=== PATIENT | male | born 1945 | race Caucasian/White ===

== ENCOUNTER → 2016-08-24 | Outpatient (CLI) | payer MEDICARE ==
[~2016-08-24] MED LIST: AMLO10CA PO; ASPI81TA21 PO; ATEN25TA PO; ATOR1TAB19 PO; COMBAER6 INH; COUM2.5T11 PO; PERC5TAB6 PO; RANI150T PO
--- NOTE | 2016-08-24 14:44 | REP ---
CHEST X-RAY: Two views. HISTORY: COPD. Comparison study December 19, 2015. FINDINGS: There is linear plate-like atelectasis in the right upper lobe on the frontal and lateral radiograph. Interstitial markings are a little prominent as well. Heart is not enlarged. The aorta is calcific and somewhat tortuous. IMPRESSION: Atelectasis and/or infiltrate right upper lobe. Mildly prominent pulmonary interstitial markings. No pleural effusion seen. Normal heart size. Signed by Everardo Acevedo MD 08/24/2016 03:21 P
[2016-08-24 17:40] LABS: ANION GAP 8 MEQ/L (8-16); BLOOD UREA NITROGEN 14 MG/DL (7-18); CALCIUM LEVEL 9.3 MG/DL (8.8-10.2); CARBON DIOXIDE LEVEL 32 MEQ/L (21-32); CHLORIDE LEVEL 99 MEQ/L (98-107); CREATININE FOR GFR 0.78 MG/DL (0.70-1.30); GLOMERULAR FILTRATION RATE > 60.0 (>42); GLUCOSE, FASTING 137 MG/DL (83-110); POTASSIUM SERUM 4.4 MEQ/L (3.5-5.1); SODIUM LEVEL 139 MEQ/L (136-145)
[2016-08-24 17:48] LABS: MEAN CORPUSCULAR HEMOGLOBIN 29.6 pg (27.0-33.0); MEAN CORPUSCULAR HGB CONC 32.6 g/dl (32.0-36.5); MEAN CORPUSCULAR VOLUME 90.8 fl (80.0-96.0); WHITE BLOOD COUNT 9.7 K/mm3 (4.0-10.0)
== END ==
LOC: M WUC 13:43
PROVIDERS: ATTEND Internal Medicine Cardiovascular Disease
DX: R06.00 Dyspnea, unspecified (principal); R05 Cough; J44.9 Chronic obstructive pulmonary disease, unspecified; I70.0 Atherosclerosis of aorta; J98.11 Atelectasis

== ENCOUNTER → 2016-09-07 | Outpatient (CLI) | payer MEDICARE ==
[2016-09-07 17:00] LABS: ANION GAP 9 MEQ/L (8-16); BLOOD UREA NITROGEN 18 MG/DL (7-18); CALCIUM LEVEL 8.9 MG/DL (8.8-10.2); CARBON DIOXIDE LEVEL 32 MEQ/L (21-32); CHLORIDE LEVEL 94 MEQ/L (98-107); CREATININE FOR GFR 0.87 MG/DL (0.70-1.30); GLOMERULAR FILTRATION RATE > 60.0 (>42); GLUCOSE, FASTING 119 MG/DL (83-110); POTASSIUM SERUM 4.4 MEQ/L (3.5-5.1); SODIUM LEVEL 135 MEQ/L (136-145)
[2016-09-07 17:02] LABS: INR 1.25
== END ==
LOC: M WUC 11:46
PROVIDERS: ATTEND Internal Medicine Cardiovascular Disease
DX: Z51.81 Encounter for therapeutic drug level monitoring (principal); Z79.01 Long term (current) use of anticoagulants; I50.9 Heart failure, unspecified; I48.91 Unspecified atrial fibrillation; R06.02 Shortness of breath

== ENCOUNTER → 2016-09-15 | Outpatient (CLI) | payer MEDICARE ==
[2016-09-15 13:48] LABS: INR 1.65
== END ==
LOC: M WUC 11:42
PROVIDERS: ATTEND Internal Medicine Cardiovascular Disease
DX: I50.9 Heart failure, unspecified (principal); R06.02 Shortness of breath

== ENCOUNTER 2016-09-21 21:32 | Inpatient (IN) | payer MEDICARE ==
[~2016-09-21] VITALS: Ht 180.3 cm; Wt 84.4 kg
[2016-09-21] MEDS ORDERED: HYDROmorphone HCL 1 MG/ML SYRINGE (J1170) As Ordered ONE ×2 (23:02→23:37)
[2016-09-21 23:05] LABS: BASO % 0.4 % (0.0-1.0); EOS # 0.2 K/mm3 (0.0-0.50); EOS % 1.4 % (0.0-3.0); LARGE UNSTAINED CELL # 0.2 K/mm3 (0.0-0.4); LARGE UNSTAINED CELL % 1.8 % (0.0-4.0); LYMPH # 1.1 K/mm3 (1.5-4.5); LYMPH % 7.6 % (24.0-44.0); MEAN CORPUSCULAR HEMOGLOBIN 29.5 pg (27.0-33.0); MEAN CORPUSCULAR HGB CONC 33.5 g/dl (32.0-36.5); MEAN CORPUSCULAR VOLUME 88.1 fl (80.0-96.0); MONO % 8.2 % (0.0-5.0); NEUTROPHILS # 9.6 K/mm3 (1.8-7.7); NEUTROPHILS % 80.5 % (36.0-66.0); PLATELET COUNT, AUTOMATED 353 k/mm3 (150-450); RED CELL DISTRIBUTION WIDTH 13.1 % (11.5-14.5); WHITE BLOOD COUNT 11.9 K/mm3 (4.0-10.0)
[2016-09-21 23:11] LABS: INR 1.85
[2016-09-21 23:26] LABS: ALBUMIN 3.2 GM/DL (3.2-5.2); ALBUMIN/GLOBULIN RATIO 0.71 (1.00-1.93); ALKALINE PHOSPHATASE 128 U/L (45-117); ALT/SGPT 23 U/L (12-78); AMYLASE 42 U/L (25-115); ANION GAP 10 MEQ/L (8-16); AST/SGOT 19 U/L (15-37); BILIRUBIN,DIRECT 0.1 MG/DL (0.0-0.2); BILIRUBIN,TOTAL 0.5 MG/DL (0.2-1.0); BLOOD UREA NITROGEN 12 MG/DL (7-18); CALCIUM LEVEL 9.1 MG/DL (8.8-10.2); CARBON DIOXIDE LEVEL 34 MEQ/L (21-32); CHLORIDE LEVEL 89 MEQ/L (98-107); CREATININE FOR GFR 0.67 MG/DL (0.70-1.30); GLOMERULAR FILTRATION RATE > 60.0 (>42); GLUCOSE, FASTING 110 MG/DL (83-110); POTASSIUM SERUM 3.3 MEQ/L (3.5-5.1); SODIUM LEVEL 133 MEQ/L (136-145); TOTAL PROTEIN 7.7 GM/DL (6.4-8.2)
[2016-09-22] VITALS (7 sets, daily range): BP systolic 130–188; BP diastolic 63–98; O2SAT 90–95
[2016-09-22] MEDS ORDERED: POTASSIUM CHLORIDE 10 MEQ SR TABLET As Ordered ONE (00:04)
[2016-09-22] MEDS ORDERED: ISOVUE-370 76% 100ML VIAL (Q9967) As Ordered ONE (00:34)
--- NOTE | 2016-09-22 01:00 | REPUSA ---
CT of the abdomen and pelvis with contrast Clinical statement: Pain. Technique: Multiple axial CT images were obtained from the base of the lungs to the floor of the pelv is utilizing 5 mm axial slices after administration of nonionic intravenous contrast. Coronal and sag ittal reconstructions were also obtained. No comparison is available. Findings: Chest: There is a small right-sided pleural effusion with right lower lobe infiltrate. There is also a small reticulonodular infiltrate lingula of the left lung. Abdomen: The kidneys are normal in size bilaterally. There is no evidence of hydronephrosis or nephro lithiasis. The liver, spleen, pancreas, gallbladder and right adrenal gland are unremarkable. There i s a low attenuation nodule in the left adrenal measuring 2.5 x 1.5 cm. The aorta demonstrates normal caliber and contour. There is no abdominal lymphadenopathy or ascites. Pelvis: The bowel is unremarkable, with no obstructive or inflammatory changes. The appendix is gaston l. The urinary bladder is within normal limits. There is no pelvic lymphadenopathy or ascites. The ot her pelvic structures appear unremarkable. Bones: There are no suspicious osseous abnormalities seen. Severe multilevel degenerative disc diseas e is seen throughout the lower thoracic and lumbar spine, with sclerosis and severe disc osteophyte c omplexes. There is an 8mm retrolisthesis of L3 upon L4. There is a 5 mm retrolisthesis of L4 upon L5. There is a 7 mm anterior spondylolisthesis of L5 upon S1. Moderately severe central canal stenosis i s noted at L3/L4 and L2/L3. Severe bilateral neural foraminal narrowing is noted at these levels as w ell. Impression: 1. No acute findings to explain the patient's pain. 2. No obstructive or inflammatory bowel changes. 3. Severe multilevel degenerative disc disease with disc osteophyte complexes as described. This caus es central canal stenosis at L3/L4 and L2/L3. There is grade 1 spondylolisthesis noted at L3/L4, L4/L 5, and L5/S1. No acute fractures are identified. 4. Benign left adrenal adenoma.
--- NOTE | 2016-09-22 01:30 | REPUSA ---
CT of the chest without contrast Clinical statement: Shortness of breath. Previous right lower lobe consolidation. Technique: Multiple axial CT images were obtained with 5 mm cuts through the chest without administra tion of contrast. Coronal and sagittal reconstructions were also obtained. No comparison is available. Findings: There is extensive adenopathy. A precarinal lymph node measures 2.7 x 2.1 cm. Large amount of right hilar soft tissue is noted, suspected to represent adenopathy. The area measures 6.4 x 3.4 c m. Soft tissue in the subcarinal region measures 6.3 x 4.0 cm. The visualized portions of the thyroid gland is unremarkable. There mild emphysematous changes bilaterally, predominately in the upper lobe s. Bronchiectasis is seen in the right middle lobe. There are several nodules demonstrated in the rig ht middle and right lower lobes, measuring up to 11 mm in diameter. Smaller nodules are seen in the l eft lower lobe measuring up to 6 mm in diameter. There is a small right lower lobe infiltrate and ple ural effusion. There is also a small left lower lobe infiltrate. Limited imaging of the upper abdomen does not demonstrate any acute abnormalities. There are no suspicious osseous lesions. Impression: 1. Right lower lobe infiltrate and small right-sided pleural effusion. Smaller left lower lobe infilt rate also noted. 2. Bilateral upper lobe emphysema. Bronchiectasis in the right middle lobe. 3. Numerous pulmonary nodules within the lungs bilaterally measuring up to 11 mm in diameter. By Flei schner Society protocol recommendations, a follow-up CT in 3, 9, and 24 months is suggested. Dynamic contrast enhanced CT/PET scan or biopsy should also be considered. 4. Extensive mediastinal and right hilar adenopathy. Biopsy should be considered.
[2016-09-22 01:39] LABS: ABG BASE EXCESS 7.9 (-2.0-2.0); ABG DEVICE NASAL CANN; ABG HCO3 32.6 MEQ/L (22.0-26.0); ABG PARTIAL PRESSURE CO2 45.8 mmHg (35.0-45.0); ABG PARTIAL PRESSURE O2 58.2 mmHg (75.0-100.0); ABG STANDARD HCO3 31.5 MEQ/L (22.0-26.0)
[2016-09-22] MEDS ORDERED: KETOROLAC 30 MG/ML VIAL (J1885) As Ordered ONE (01:40)
[2016-09-22] MEDS ORDERED: CEFUROXIME SODIUM 1.5 GM in D5W MINI-BAG PLUS 50 ML IV ONE (01:45)
[2016-09-22] MEDS ORDERED: IPRATROPIUM 0.02% SOLN 0.5MG/2.5 ML NEB INH PRN (02:00)
[2016-09-22] MEDS ORDERED: LEVALBUTEROL 1.25 MG/0.5 ML CONCENTRATE NEB INH PRN (02:00)
[2016-09-22] MEDS ORDERED: GUAI1200 PO (02:26)
[2016-09-22] MEDS ORDERED: FURO40TA2 PO (02:26)
[2016-09-22] MEDS ORDERED: SPIR1CAP INH (02:26)
[2016-09-22] MEDS ORDERED: FLOM5CAP PO (02:26)
[2016-09-22] MEDS ORDERED: COUM1TAB17 PO (02:26)
[2016-09-22] MEDS ORDERED: WARF-22 PO (02:26)
[2016-09-22] MEDS ORDERED: FISH1000 PO (02:26)
[2016-09-22] MEDS ORDERED: ALBU17IN INH (02:26)
[2016-09-22] MEDS ORDERED: ADV250INH INH (02:26)
[2016-09-22 02:32] LABS: MAGNESIUM LEVEL 1.6 MG/DL (1.8-2.4)
[2016-09-22] MEDS ORDERED: LEVALBUTEROL 1.25 MG/0.5 ML CONCENTRATE NEB As Ordered ONE (03:00)
[2016-09-22] MEDS ORDERED: WARFARIN SOD 5 MG TAB As Ordered ONE (03:01)
[2016-09-22] MEDS ORDERED: methylPREDNISolone INJ 125 MG/2 ML VIAL (J2930) As Ordered ONE (03:01)
[2016-09-22] MEDS ORDERED: AZITHROMYCIN INJ 500MG VIAL (J0456) As Ordered ONE (03:06)
[2016-09-22] MEDS ORDERED: NICOTINE POLACRILEX 2 MG GUM PO PRN (03:15)
[2016-09-22] MEDS ORDERED: MORPHINE 2 MG/ML 1ML SYRINGE IV PRN (03:30)
[2016-09-22] MEDS ORDERED: PERCOCET 5MG/325MG TAB PO PRN (03:30)
[2016-09-22] MEDS: IPRATROPIUM 0.02% SOLN 0.5MG/2.5 ML NEB INH SCH ×6 (04:00→23:23)
--- NOTE | 2016-09-22 04:04 | EDDOCDS ---
Nurse's Notes [facility] Name: Stalin Boateng Age: 71 yrs Sex: Male : 1945 Arrival Date: 09/21/2016 Time: 21:32 Bed 15 Private MD: Ayse Choudhary A Diagnosis: Pneumonia in diseases classified elsewhere;Hypoxemia Presentation: 09/21 21:42 Presenting complaint: Patient states: Right abdominal pain that has been ongoing for lf1 two days and unrelieved with simethicone, tums and multiple other "gas" remedies. Pt. reports history of multiple similar episodes but states this is worse than usual. Pain is currently 10/10. Denies nausea, difficulty urinating, constipation and diarrhea. Acute neurological deficits are not present. Mechanism of Injury: No Mechanism of Injury. Adult Sepsis Screening: The patient does not have new or worsening altered mentation. Patient's respiratory rate is less than 22. Systolic blood pressure is greater than 100. Patient has a qSOFA score of 0- Negative Sepsis Screen. Suicide/Homicide risk assessment- the patient denies having any suicidal and/or homicidal ideations and does not present with any other emotional, behavioral or mental health complaints. Status: Patient is not a service technician or dependent. Transition of care: patient was not received from another setting of care. 21:42 Acuity: HEMAL Level 3 lf1 21:42 Method Of Arrival: Walkin/Carried/Asstd lf1 Triage Assessment: 21:53 General: Appears in no apparent distress, Behavior is cooperative. Pain: Location: lf1 right upper quadrant and right lower quadrant Pain currently is 10 out of 10 on a pain scale. Neurological: Level of Consciousness is awake, alert, Oriented to person, place, time. EENT: Respiratory: Respiratory effort is even, unlabored. GI: Denies nausea, vomiting. Derm: Skin is normal. Injury Description: No known injury. Historical: - Allergies: Xareltopain and weakness; pardaxaepigastric pain; Eliquisinsomnia; - Home Meds: 1. Coumadin 5 mg Oral tab 1 tab once daily adjusted based on INR 2. Fish Oil 1,000 mg Oral cap twice a day (Last dose: 09/21/2016 18:00) 3. ranitidine HCl 150 mg Oral cap 1 cap 2 times per day (Last dose: 09/21/2016 18:00) 4. furosemide 40 mg Oral tab 1 tab once daily (Last dose: 09/21/2016 15:00) 5. atenolol 25 mg Oral tab 1 tab once daily (Last dose: 09/21/2016 18:00) 6. guaifenesin 1,200 mg Oral Tb12 (Last dose: 09/21/2016 18:00) 7. tamsulosin 0.4 mg oral cp24 1 cap once daily (Last dose: 09/21/2016 18:00) 8. Iron CR 65 mg Oral 9. Advair Diskus 250-50 mcg/dose Inhl dsdv 1 puff 2 times per day 10. Spiriva with HandiHaler 18 mcg Inhl CpDv 1 cap once daily 11. ventolin inhaler - PMHx: Hypertension; COPD; afib; GERD; - PSHx: left total knee; right knee scope; Carpal Tunnel Repair- Bilateral; left ulnar nerve transposition; - Social history: Smoking status: Patient uses tobacco products, current every day smoker. No barriers to communication noted, The patient speaks fluent Argentine, Speaks appropriately for age, Preferred Language: Argentine. - Family history: Not pertinent. - : The pt / caregiver states he / she is on anticoagulants: coumadin. Home medication list is obtained from pill bottles. - Exposure Risk Screening:: None identified. Screenin:35 Screening information is obtained from the patient. Fall risk: At risk due to age. mgs Assistance ADL's: requires no assistance with activities of daily living. Abuse/DV Screen: The patient / caregiver reports he/she is: not in a situation that causes fear, pain or injury. Nutritional screening: No deficits noted. Advance Directives: Currently, there is a health care proxy, Nikole Otero. There is no active DNR order. home support is adequate. Assessment: 22:31 General: Appears uncomfortable, Behavior is cooperative. Pain: Location: right upper mgs quadrant Pain currently is 10 out of 10 on a pain scale. Neurological: Level of Consciousness is awake, alert, Oriented to person, place, time. Cardiovascular: Capillary refill < 3 seconds Heart tones S1 S2 present. Respiratory: Airway is patent Respiratory effort is even, unlabored, Respiratory pattern is regular, symmetrical, Breath sounds with rhonchi expiratory bilaterally. Breath sounds are diminished bilaterally. GI: Abdomen is flat, Bowel sounds present X 4 quads. Derm: Skin is pink, warm & dry. Musculoskeletal: No deficits noted. 23:14 General: Appears uncomfortable, Behavior is cooperative. Neurological: Level of mgs Consciousness is awake, alert, Oriented to person, place, time. Cardiovascular: Capillary refill < 3 seconds. Respiratory: Airway is patent Respiratory effort is even, unlabored, Respiratory pattern is regular, symmetrical. Derm: Skin is pink, warm & dry. 09/22 00:14 General: Appears in no apparent distress, Behavior is appropriate for age, cooperative. mgs Pain: Location: right upper quadrant Pain currently is 3 out of 10 on a pain scale. Neurological: Level of Consciousness is awake, alert, Oriented to person, place, time. Cardiovascular: Capillary refill < 3 seconds. Respiratory: Airway is patent Respiratory effort is even, unlabored, Respiratory pattern is regular, symmetrical. Derm: Skin is pink, warm & dry. 01:10 General: Appears in no apparent distress, Behavior is appropriate for age, cooperative. mgs Neurological: Level of Consciousness is awake, alert, Oriented to person, place, time. Cardiovascular: Capillary refill < 3 seconds. Respiratory: Airway is patent Respiratory effort is even, unlabored, Respiratory pattern is regular, symmetrical. Derm: Skin is pink, warm & dry. 01:50 Adult Sepsis Screening: The patient does not have new or worsening altered mentation. mgs Patient's respiratory rate is less than 22. Systolic blood pressure is greater than 100. Patient has a qSOFA score of 0- Negative Sepsis Screen. General: Appears in no apparent distress, Behavior is appropriate for age, cooperative. Neurological: Level of Consciousness is awake, alert, Oriented to person, place, time. Cardiovascular: Capillary refill < 3 seconds. Respiratory: Airway is patent Respiratory effort is even, unlabored, Respiratory pattern is regular, symmetrical. Derm: Skin is pink, warm & dry. 03:23 General: Appears in no apparent distress, Behavior is appropriate for age, cooperative. ko2 Pain: Location: right upper quadrant. Neurological: Level of Consciousness is awake, alert, Oriented to person, place, time. Cardiovascular: Heart tones S1 S2 present. Respiratory: Airway is patent Respiratory effort is even, unlabored, Respiratory pattern is regular, symmetrical, Breath sounds with wheezes bilaterally. Derm: Skin is pink, warm & dry. 03:28 General: Fax sent to [address] [place] [id number]. ko2 Vital Signs: 09/21 21:33 BP 132 / 68; Pulse 78; Resp 19; Temp 97.8(O); Pulse Ox 95% on R/A; Weight 84.82 kg (R); lr2 Height 5 ft. 11 in. (180.34 cm); Pain 10/10; 09/22 01:10 BP 118 / 67; Pulse 79; Resp 18; Temp 96.1; Pulse Ox 93% on R/A; mgs 02:41 BP 118 / 67 RA Sitting (auto/reg); Pulse 91 MON; Resp 22 S; Temp 97.0(O); Pulse Ox 91% cln on R/A; Pain 0/10; 03:21 BP 120 / 69; Pulse 90; Resp 22; Temp 97.2; Pulse Ox 93% ; ko2 09/21 21:33 Body Mass Index 26.08 (84.82 kg, 180.34 cm) lr2 Vitals: 09/21 21:33 Log In Time: September 21, 2016 at 21:32. lr2 ED Course: 21:33 Patient visited by Rafaela Evans. lr2 21:33 Patient moved to Waiting lr2 21:35 Ayse Choudhary is Private Physician. lr2 21:35 Patient moved to Pre RCE lr2 21:45 Triage Initiated lf1 22:02 Misty Ferrell, SANTO is Primary Nurse. ar3 22:02 Patient moved to 15 ar3 22:15 Primary Nurse role handed off by Misty Ferrell RN kip 22:23 Tien Martinez DO is Attending Physician. cs11 22:23 Patient visited by Tien Martinze DO. cs11 22:31 Gordy Diaz,SANTO is Primary Nurse. mgs 22:36 Patient visited by Gordy Diaz,SANTO. mgs 22:59 Pt & Aptt Sent. mgs 22:59 Lipase Sent. mgs 22:59 Amylase Sent. mgs 22:59 Liver Profile Sent. mgs 22:59 MED Profile Sent. mgs 22:59 CBC with Diff Sent. mgs 22:59 -Blood Culture Sent. mgs 23:15 Patient visited by Gordy Diaz,SANTO. mgs 23:15 Inserted saline lock: 20 gauge in left antecubital area and blood collected. The mgs patient tolerated the procedure well. 23:22 BLOOD CULTURES Sent. nn1 09/22 00:18 Patient visited by Gordy Diaz RN. mgs 00:41 [facility] Payment Agreement was scanned into [employer] and attached to record. hs2 01:11 Patient visited by Gordy Diaz RN. mgs 01:12 CT ABD & PELVIS: IV Contrast Only Returned. EDMS 01:32 -Arterial Blood Gas Sent. dk 01:47 CT Chest Without Contrast Returned. EDMS 01:51 Patient visited by Gordy Diaz RN. mgs 01:56 Vera Thomas is Hospitalizing Provider. cs11 02:42 Patient visited by Melissa Lozano PCA. cln 02:55 Written Provider Order was scanned into [employer] and attached to record. ml3 03:22 The patient / caregiver is instructed regarding the plan of care and ED course. ko2 03:22 No procedures done that require assistance. ko2 Administered Medications: 09/21 23:14 Drug: NS 0.9% 500 ml [sodium chloride 0.9 % intravenous solution] Route: IV; Rate: mgs bolus; Site: left antecubital; 09/22 03:22 Follow up: IV Status: Completed infusion; IV Intake: 500ml ko2 09/21 23:14 Drug: Dilaudid - HYDROmorphone 0.5 mg [hydromorphone 1 mg/mL injection syringe (0.5 mgs mL)] Route: IVP; Site: left antecubital; 23:50 Drug: Dilaudid - HYDROmorphone 0.5 mg [hydromorphone 1 mg/mL injection syringe (0.5 mgs mL)] Route: IVP; Site: right antecubital; 09/22 00:15 Follow up: Response: Pain is decreased mgs 00:15 Drug: NS 0.9% 500 ml [sodium chloride 0.9 % intravenous solution] Route: IV; Rate: mgs bolus; Site: left antecubital; 00:16 Drug: Potassium Chloride 20 mEq [potassium chloride ER 10 mEq tablet,extended release mgs (2 tabs)] Route: PO; 01:51 Drug: cefUROXime 1.5 grams [cefuroxime sodium 1.5 gram solution for injection] Route: mgs IV; Rate: calculated rate; Infused Over: 30 mins; Site: left antecubital; 03:20 Follow up: IV Status: Completed infusion; IV Intake: 50ml ko2 01:51 Drug: ketorolac 30 mg [ketorolac 30 mg/mL (1 mL) injection solution (1 mL)] Route: IVP; mgs Site: left antecubital; 03:05 Drug: solumedrol 125 mg Route: IV; Rate: bolus; Site: left antecubital; ko2 03:05 Drug: Warfarin 5 mg [warfarin 5 mg tablet (1 tabs)] Route: PO; ko2 03:08 Drug: Levalbuterol 1.25 mg [levalbuterol 1.25 mg/0.5 mL solution for nebulization (0.5 nk1 mL)] Route: Nebulizer; 03:14 Follow up: Response: Nebulizer completed nk1 03:14 CANCELLED (Duplicate Order): Levalbuterol 1.25 mg Nebulizer once nk1 03:20 Drug: azithromycin 500 mg [azithromycin 500 mg intravenous solution] Route: IVPB; ko2 Infused Over: 1 hrs; Site: left antecubital; Intake: 03:20 IV: 50.00ml; Total: 50.00ml. ko2 03:22 IV: 500.00ml; Total: 550.00ml. ko2 RT: 01:32 ABG's drawn from left radial artery allens test done and positive pressure held for 5 dk minutes no bleeding noted pressure bandage applied specimen sent pt. tolerated well. 03:08 Initial Med Neb Given as ordered Patient was instructed and evaluated on procedure nk1 Patient tolerated procedure well without adverse effect. Respiratory: Airway is patent Respiratory effort is even, unlabored, Respiratory pattern is regular symmetrical, Breath sounds are diminished bilaterally. fine high pitch scattered wheezes and rhonchi bilaterally. patient states he has a frequent cough which is productive of green sputum. 03:14 Respiratory: Breath sounds with increased aeration, louder expiratory wheezes heard nk1 bilaterally. Hacking congested sounding cough with no sputum production at this time. Patient states he does not feel significant change after therapy. Order Results: Lab Order: CBC with Diff; SPEC'M 09/21/16 22:54 Test: WHITE BLOOD COUNT; Value: 11.9; Range: 4.0-10.0; Abnormal: Above high normal; Units: K/mm3; Status: F Test: RED BLOOD COUNT; Value: 4.40; Range: 4.30-6.10; Units: M/mm3; Status: F Test: HEMOGLOBIN; Value: 13.0; Range: 14.0-18.0; Abnormal: Below low normal; Units: g/dl; Status: F Test: HEMATOCRIT; Value: 38.7; Range: 42.0-52.0; Abnormal: Below low normal; Units: %; Status: F Test: MEAN CORPUSCULAR VOLUME; Value: 88.1; Range: 80.0-96.0; Units: fl; Status: F Test: MEAN CORPUSCULAR HEMOGLOBIN; Value: 29.5; Range: 27.0-33.0; Units: pg; Status: F Test: MEAN CORPUSCULAR HGB CONC; Value: 33.5; Range: 32.0-36.5; Units: g/dl; Status: F Test: RED CELL DISTRIBUTION WIDTH; Value: 13.1; Range: 11.5-14.5; Units: %; Status: F Test: PLATELET COUNT, AUTOMATED; Value: 353; Range: 150-450; Units: k/mm3; Status: F Test: NEUTROPHILS %; Value: 80.5; Range: 36.0-66.0; Abnormal: Above high normal; Units: %; Status: F Test: LYMPH %; Value: 7.6; Range: 24.0-44.0; Abnormal: Below low normal; Units: %; Status: F Test: MONO %; Value: 8.2; Range: 0.0-5.0; Abnormal: Above high normal; Units: %; Status: F Test: EOS %; Value: 1.4; Range: 0.0-3.0; Units: %; Status: F Test: BASO %; Value: 0.4; Range: 0.0-1.0; Units: %; Status: F Test: LARGE UNSTAINED CELL %; Value: 1.8; Range: 0.0-4.0; Units: %; Status: F Test: NEUTROPHILS #; Value: 9.6; Range: 1.8-7.7; Abnormal: Above high normal; Units: K/mm3; Status: F Test: LYMPH #; Value: 1.1; Range: 1.5-4.5; Abnormal: Below low normal; Units: K/mm3; Status: F Test: MONO #; Value: 1.0; Range: 0.0-0.8; Abnormal: Above high normal; Units: K/mm3; Status: F Test: EOS #; Value: 0.2; Range: 0.0-0.50; Units: K/mm3; Status: F Test: BASO #; Value: 0.0; Range: 0.0-0.2; Units: K/mm3; Status: F Test: LARGE UNSTAINED CELL #; Value: 0.2; Range: 0.0-0.4; Units: K/mm3; Status: F Lab Order: MED Profile; SPEC'M 09/21/16 22:54 Test: GLUCOSE, FASTING; Value: 110; Range: 83-110; Units: MG/DL; Status: F Test: BLOOD UREA NITROGEN; Value: 12; Range: 7-18; Units: MG/DL; Status: F Test: CREATININE FOR GFR; Value: 0.67; Range: 0.70-1.30; Abnormal: Below low normal; Units: MG/DL; Status: F Test: GLOMERULAR FILTRATION RATE; Value: > 60.0; Range: >42; Status: F Test: SODIUM LEVEL; Value: 133; Range: 136-145; Abnormal: Below low normal; Units: MEQ/L; Status: F Test: POTASSIUM SERUM; Value: 3.3; Range: 3.5-5.1; Abnormal: Below low normal; Units: MEQ/L; Status: F Test: CHLORIDE LEVEL; Value: 89; Range: 98-107; Abnormal: Below low normal; Units: MEQ/L; Status: F Test: CARBON DIOXIDE LEVEL; Value: 34; Range: 21-32; Abnormal: Above high normal; Units: MEQ/L; Status: F Test: ANION GAP; Value: 10; Range: 8-16; Units: MEQ/L; Status: F Test: CALCIUM LEVEL; Value: 9.1; Range: 8.8-10.2; Units: MG/DL; Status: F Test Note: ; Units are mL/min/1.73 m2 Chronic Kidney Disease Staging per NKF: Stage I & II GFR >=60 Normal to Mildly Decreased Stage III GFR 30-59 Moderately Decreased Stage IV GFR 15-29 Severely Decreased Stage V GFR <15 Very Little GFR Left ESRD GFR <15 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 Lab Order: Liver Profile; [facility] 09/21/16 22:54 Test: AST/SGOT; Value: 19; Range: 15-37; Units: U/L; Status: F Test: ALT/SGPT; Value: 23; Range: 12-78; Units: U/L; Status: F Test: ALKALINE PHOSPHATASE; Value: 128; Range: 45-117; Abnormal: Above high normal; Units: U/L; Status: F Test: BILIRUBIN,TOTAL; Value: 0.5; Range: 0.2-1.0; Units: MG/DL; Status: F Test: BILIRUBIN,DIRECT; Value: 0.1; Range: 0.0-0.2; Units: MG/DL; Status: F Test: TOTAL PROTEIN; Value: 7.7; Range: 6.4-8.2; Units: GM/DL; Status: F Test: ALBUMIN; Value: 3.2; Range: 3.2-5.2; Units: GM/DL; Status: F Test: ALBUMIN/GLOBULIN RATIO; Value: 0.71; Range: 1.00-1.93; Abnormal: Below low normal; Status: F Lab Order: Amylase; [facility] 09/21/16 22:54 Test: AMYLASE; Value: 42; Range: 25-115; Units: U/L; Status: F Lab Order: Lipase; [facility] 09/21/16 22:54 Test: LIPASE; Value: 71; Range: 73-393; Abnormal: Below low normal; Units: U/L; Status: F Lab Order: Pt & Aptt; [facility] 09/21/16 22:54 Test: PROTHROMBIN TIME; Value: 21.4; Range: 12.3-14.5; Abnormal: Above high normal; Units: SECONDS; Status: F Test: INR; Value: 1.85; Status: F Test: PARTIAL THROMBOPLASTIN TIME; Value: 46.2; Range: 26.6-37.1; Abnormal: Above high normal; Units: SECONDS; Status: F Test Note: ; THERAPUTIC HUMAN INR VALUES INDICATIONS NORMAL RANGES PROPHYLAXIS/TREATMENT OF: VENOUS THROMBOSIS 2.0-3.0 PULMONARY EMBOLISM 2.0-3.0 PREVENTION OF SYSTEMIC EMBOLISM FROM: TISSUE HEART VALVES 2.0-3.0 ACUTE MYOCARDIAL INFARCTION 2.0-3.0 VALVULAR HEART DISEASE 2.0-3.0 ATRIAL FIBRILLATION 2.0-3.0 MECHANICAL VALVES(HIGH RISK) 2.5-3.5 RECURRENT MYOCARDIAL INFARCTION 2.5-3.5 Lab Order: -Arterial Blood Gas; 09/22/16 01:29 Test: ABG pH (ARTERIAL); Value: 7.470; Range: 7.350-7.450; Abnormal: Above high normal; Units: UNITS; Status: F Test: ABG PARTIAL PRESSURE CO2; Value: 45.8; Range: 35.0-45.0; Abnormal: Above high normal; Units: mmHg; Status: F Test: ABG PARTIAL PRESSURE O2; Value: 58.2; Range: 75.0-100.0; Abnormal: Below low normal; Units: mmHg; Status: F Test: ABG TOTAL CO2; Value: 34.0; Range: 23.0-31.0; Abnormal: Above high normal; Units: MEQ/L; Status: F Test: ABG HCO3; Value: 32.6; Range: 22.0-26.0; Abnormal: Above high normal; Units: MEQ/L; Status: F Test: ABG BASE EXCESS; Value: 7.9; Range: -2.0-2.0; Abnormal: Above high normal; Status: F Test: ABG STANDARD HCO3; Value: 31.5; Range: 22.0-26.0; Abnormal: Above high normal; Units: MEQ/L; Status: F Test: ABG O2 SATURATION; Value: 89.9; Range: 95.0-99.0; Abnormal: Below low normal; Units: %; Status: F Test: ABG DEVICE; Value: NASAL DEANNA; Status: F Lab Order: CARDIAC MARKER PANEL; [facility] 22:54 Test: CPK CREATINE PHOSPHOKINASE; Value: 63; Range: 39-308; Units: U/L; Status: F Test: CK-MB VALUE MASS; Value: 2.0; Range: 0.0-3.6; Units: NG/ML; Status: F Test: MB/CK RELATIVE INDEX; Value: 3.17; Range: < OR =4; Status: F Test: TROPONIN I; Value: < 0.02; Range: < 0.10; Units: NG/ML; Status: F Test Note: ; DIAGNOSIS CRITERIA MMB ng/ml Relative Index (RI) NON-AMI < or = 5 N/A NAPIER ZONE > 5 < or = 4 AMI > 5 > 4 Lab Order: MAGNESIUM LEVEL; SPEC'M 09/21/16 22:54 Test: MAGNESIUM LEVEL; Value: 1.6; Range: 1.8-2.4; Abnormal: Below low normal; Units: MG/DL; Status: F Radiology Order: CT ABD & PELVIS: IV Contrast Only Test: CT ABD & PELVIS: IV Contrast Only REASON FOR EXAMINATION: Abdomen Pain; ; CT of the abdomen and pelvis with contrast; Clinical statement: Pain.; Technique: Multiple axial CT images were obtained from the base of the lungs to the floor of the pelv; is utilizing 5 mm axial slices after administration of nonionic intravenous contrast. Coronal and sag; ittal reconstructions were also obtained.; No comparison is available.; Findings:; Chest: There is a small right-sided pleural effusion with right lower lobe infiltrate. There is also; a small reticulonodular infiltrate lingula of the left lung.; Abdomen: The kidneys are normal in size bilaterally. There is no evidence of hydronephrosis or nephro; lithiasis. The liver, spleen, pancreas, gallbladder and right adrenal gland are unremarkable. There i; s a low attenuation nodule in the left adrenal measuring 2.5 x 1.5 cm. The aorta demonstrates normal; caliber and contour. There is no abdominal lymphadenopathy or ascites.; Pelvis: The bowel is unremarkable, with no obstructive or inflammatory changes. The appendix is gaston; l. The urinary bladder is within normal limits. There is no pelvic lymphadenopathy or ascites. The ot; her pelvic structures appear unremarkable.; Bones: There are no suspicious osseous abnormalities seen. Severe multilevel degenerative disc diseas; e is seen throughout the lower thoracic and lumbar spine, with sclerosis and severe disc osteophyte c; omplexes. There is an 8mm retrolisthesis of L3 upon L4. There is a 5 mm retrolisthesis of L4 upon L5.; There is a 7 mm anterior spondylolisthesis of L5 upon S1. Moderately severe central canal stenosis i; s noted at L3/L4 and L2/L3. Severe bilateral neural foraminal narrowing is noted at these levels as w; ell.; Impression:; 1. No acute findings to explain the patient's pain.; 2. No obstructive or inflammatory bowel changes.; 3. Severe multilevel degenerative disc disease with disc osteophyte complexes as described. This caus; es central canal stenosis at L3/L4 and L2/L3. There is grade 1 spondylolisthesis noted at L3/L4, L4/L; 5, and L5/S1. No acute fractures are identified.; 4. Benign left adrenal adenoma.; ; Radiology Order: CT Chest Without Contrast Test: CT Chest Without Contrast REASON FOR EXAMINATION: Abdomen Pain; ; CT of the chest without contrast; Clinical statement: Shortness of breath. Previous right lower lobe consolidation.; Technique: Multiple axial CT images were obtained with 5 mm cuts through the chest without administra; tion of contrast. Coronal and sagittal reconstructions were also obtained.; No comparison is available.; Findings: There is extensive adenopathy. A precarinal lymph node measures 2.7 x 2.1 cm. Large amount; of right hilar soft tissue is noted, suspected to represent adenopathy. The area measures 6.4 x 3.4 c; m. Soft tissue in the subcarinal region measures 6.3 x 4.0 cm. The visualized portions of the thyroid; gland is unremarkable. There mild emphysematous changes bilaterally, predominately in the upper lobe; s. Bronchiectasis is seen in the right middle lobe. There are several nodules demonstrated in the rig; ht middle and right lower lobes, measuring up to 11 mm in diameter. Smaller nodules are seen in the l; eft lower lobe measuring up to 6 mm in diameter. There is a small right lower lobe infiltrate and ple; ural effusion. There is also a small left lower lobe infiltrate. Limited imaging of the upper abdomen; does not demonstrate any acute abnormalities. There are no suspicious osseous lesions.; Impression:; 1. Right lower lobe infiltrate and small right-sided pleural effusion. Smaller left lower lobe infilt; rate also noted.; 2. Bilateral upper lobe emphysema. Bronchiectasis in the right middle lobe.; 3. Numerous pulmonary nodules within the lungs bilaterally measuring up to 11 mm in diameter. By [employer] protocol recommendations, a follow-up CT in 3, 9, and 24 months is suggested. Dynamic; contrast enhanced CT/PET scan or biopsy should also be considered.; 4. Extensive mediastinal and right hilar adenopathy. Biopsy should be considered.; ; Outcome: 01:56 Decision to Hospitalize by Provider. cs11 03:24 Discharge Assessment: Patient awake, alert and oriented x 3. No cognitive and/or ko2 functional deficits noted. Patient verbalized understanding of disposition instructions. patient administered narcotics - no. The following High Risk Discharge criteria are identified: None. Admitted to Floor accompanied by tech, via stretcher, with chart. Condition: stable. CT Study completed. Property :Personal belongings accompany Pt. 04:01 Admitted to Floor accompanied by tech, via stretcher, with chart. jul 04:04 Patient left the ED. jul Signatures: Dispatcher [employer] EDMS Debi Rodrigues RN RN jan Kirchner, Dianna,RT RT dk Felton Dyson, Food Products Sales Representative Unit ml3 Shauna Cowart,RT RT nk1 Thu KebedeRN RN lf1 Brielle Baum, PC INSTALLATION ENGINEER PC INSTALLATION ENGINEER ar3 Lia Kim, PC INSTALLATION ENGINEER PC INSTALLATION ENGINEER Tien Lemus, DO DO cs11 Annette Morocho RN RN ko2 Gordy Diaz,Mariela Watters RN, RN RN nn1 Misty Worley, Reg Reg hs2 Melissa Lozano, PC INSTALLATION ENGINEER PC INSTALLATION ENGINEER cln Rafaela Evans lr2 MTDD
--- NOTE | 2016-09-22 04:04 | EDDOCDS ---
Physician Documentation [facility] Name: Stalin Boateng Age: 71 yrs Sex: Male : 1945 Arrival Date: 09/21/2016 Time: 21:32 Bed 15 Private MD: Ayse Choudhary A Disposition: 09/22/16 01:56 Hospitalization ordered by Vera Thomas for Inpatient Admission. Preliminary diagnosis are Pneumonia in diseases classified elsewhere, Hypoxemia. - Bed requested for 5 Chaney. - Status is Inpatient Admission. radha - Condition is Stable. - Problem is new. - Symptoms have improved. Historical: - Allergies: Xareltopain and weakness; pardaxaepigastric pain; Eliquisinsomnia; - Home Meds: 1. Coumadin 5 mg Oral tab 1 tab once daily adjusted based on INR 2. Fish Oil 1,000 mg Oral cap twice a day (Last dose: 09/21/2016 18:00) 3. ranitidine HCl 150 mg Oral cap 1 cap 2 times per day (Last dose: 09/21/2016 18:00) 4. furosemide 40 mg Oral tab 1 tab once daily (Last dose: 09/21/2016 15:00) 5. atenolol 25 mg Oral tab 1 tab once daily (Last dose: 09/21/2016 18:00) 6. guaifenesin 1,200 mg Oral Tb12 (Last dose: 09/21/2016 18:00) 7. tamsulosin 0.4 mg oral cp24 1 cap once daily (Last dose: 09/21/2016 18:00) 8. Iron CR 65 mg Oral 9. Advair Diskus 250-50 mcg/dose Inhl dsdv 1 puff 2 times per day 10. Spiriva with HandiHaler 18 mcg Inhl CpDv 1 cap once daily 11. ventolin inhaler - PMHx: Hypertension; COPD; afib; GERD; - PSHx: left total knee; right knee scope; Carpal Tunnel Repair- Bilateral; left ulnar nerve transposition; - Social history: Smoking status: Patient uses tobacco products, current every day smoker. No barriers to communication noted, The patient speaks fluent Guyanese, Speaks appropriately for age, Preferred Language: Guyanese. - Family history: Not pertinent. - : The pt / caregiver states he / she is on anticoagulants: coumadin. Home medication list is obtained from pill bottles. - Exposure Risk Screening:: None identified. Vital Signs: 09/21 21:33 BP 132 / 68; Pulse 78; Resp 19; Temp 97.8(O); Pulse Ox 95% on R/A; Weight 84.82 kg / lr2 187 lbs (R); Height 5 ft. 11 in. (180.34 cm); Pain 1010; 09/22 01:10 BP 118 / 67; Pulse 79; Resp 18; Temp 96.1; Pulse Ox 93% on R/A; mgs 02:41 BP 118 / 67 RA Sitting (auto/reg); Pulse 91 MON; Resp 22 S; Temp 97.0(O); Pulse Ox 91% cln on R/A; Pain 0/10; 03:21 BP 120 / 69; Pulse 90; Resp 22; Temp 97.2; Pulse Ox 93% ; ko2 09/21 21:33 Body Mass Index 26.08 (84.82 kg, 180.34 cm) lr2 MDM: 09/21 22:41 IV Saline Lock ordered. cs11 22:41 NS 0.9% 500 ml IV at bolus once ordered. cs11 22:42 Dilaudid - HYDROmorphone 0.5 mg IVP once ordered. cs11 22:42 -Blood Culture (Adults Only), peripheral from different site, or from device/port/PICC cs11 etc. if present ordered. 22:43 CBC with Diff Ordered. EDMS 22:43 MED Profile Ordered. EDMS 22:43 Liver Profile Ordered. EDMS 22:43 Amylase Ordered. EDMS 22:43 Lipase Ordered. EDMS 22:43 Urinalysis Ordered. EDMS 22:43 Pt & Aptt Ordered. EDMS 22:43 -Blood Culture Ordered. EDMS 22:43 Urine Culture Ordered. EDMS 22:43 Chest, 1 View Ordered. EDMS 22:48 -Blood Culture (Adults Only), peripheral from different site, or from device/port/PICC ml3 etc. if present complete. 22:50 BLOOD CULTURES Ordered. EDMS 23:36 Dilaudid - HYDROmorphone 0.5 mg IVP once ordered. cs11 23:36 CBC with Diff Reviewed. cs11 23:36 MED Profile Reviewed. cs11 23:36 Liver Profile Reviewed. cs11 23:36 Lipase Reviewed. cs11 23:36 Pt & Aptt Reviewed. cs11 23:36 Amylase Reviewed. cs11 23:37 Potassium Chloride Extended Release Tablet 20 mEq PO once ordered. cs11 23:37 NS 0.9% 500 ml IV at bolus once ordered. cs11 23:38 CT ABD & PELVIS: IV Contrast Only Ordered. EDMS 23:43 Financial registration complete. hs2 09/22 00:41 [facility] Payment Agreement was scanned into [employer] and attached to record. hs2 01:02 Call Respiratory ordered. cs11 01:03 -Arterial Blood Gas Ordered. EDMS 01:06 Call Respiratory complete. mgs 01:06 CT Chest Without Contrast Ordered. EDMS 01:08 cefUROXime 1.5 grams IV at calculated rate once over 30 mins; dilute in 50mL of NS or cs11 D5W ordered. 01:09 azithromycin 500 mg IVPB once over 1 hrs; dilute in 250mL of D5W or NS ordered. cs11 01:09 ketorolac 30 mg IVP once ordered. cs11 01:33 CT ABD & PELVIS: IV Contrast Only Reviewed. cs11 01:44 -Arterial Blood Gas Reviewed. cs11 01:46 BED REQUEST+ADM ordered. EDMS 01:59 LEGIONELLA ANTIGEN URINE Ordered. EDMS 01:59 URINE STREP PNEUMONIAE ANTIGEN Ordered. EDMS 01:59 RESPIRATORY PANEL Ordered. EDMS 01:59 MRSA SCREEN Ordered. EDMS 02:00 SPUTUM CULTURE AND GRAM STAIN Ordered. EDMS 02:00 PHYSICAL THERAPY EVAL & TREAT ordered. EDMS 02:01 Admission / Observation Status ordered. EDMS 02:01 LOW FAT LOW CHOLESTEROL DIET ordered. EDMS 02:04 ELECTROCARDIOGRAM ADULT ordered. EDMS 02:05 THYROID STIMULATING HORMONE Ordered. EDMS 02:05 CARDIAC RISK PROFILE Ordered. EDMS 02:05 CBC WITH DIFFERENTIAL Ordered. EDMS 02:05 COMPLETE COMPHRENSIVE METABOLI Ordered. EDMS 02:49 solumedrol 125 mg IV at bolus once ordered. mgs 02:49 Levalbuterol 1.25 mg Nebulizer once ordered. mgs 02:49 Call Respiratory ordered. mgs 02:50 Call Respiratory complete. mgs 02:54 Warfarin 5 mg PO once ordered. mgs 02:55 Written Provider Order was scanned into [employer] and attached to record. ml3 03:04 PROTHROMBIN TIME PROFILE\E\INR Ordered. EDMS Administered Medications: 09/21 23:14 Drug: NS 0.9% 500 ml [sodium chloride 0.9 % intravenous solution] Route: IV; Rate: mgs bolus; Site: left antecubital; 09/22 03:22 Follow up: IV Status: Completed infusion; IV Intake: 500ml ko2 09/21 23:14 Drug: Dilaudid - HYDROmorphone 0.5 mg [hydromorphone 1 mg/mL injection syringe (0.5 mgs mL)] Route: IVP; Site: left antecubital; 23:50 Drug: Dilaudid - HYDROmorphone 0.5 mg [hydromorphone 1 mg/mL injection syringe (0.5 mgs mL)] Route: IVP; Site: right antecubital; 09/22 00:15 Follow up: Response: Pain is decreased mgs 00:15 Drug: NS 0.9% 500 ml [sodium chloride 0.9 % intravenous solution] Route: IV; Rate: mgs bolus; Site: left antecubital; 00:16 Drug: Potassium Chloride 20 mEq [potassium chloride ER 10 mEq tablet,extended release mgs (2 tabs)] Route: PO; 01:51 Drug: cefUROXime 1.5 grams [cefuroxime sodium 1.5 gram solution for injection] Route: mgs IV; Rate: calculated rate; Infused Over: 30 mins; Site: left antecubital; 03:20 Follow up: IV Status: Completed infusion; IV Intake: 50ml ko2 01:51 Drug: ketorolac 30 mg [ketorolac 30 mg/mL (1 mL) injection solution (1 mL)] Route: IVP; mgs Site: left antecubital; 03:05 Drug: solumedrol 125 mg Route: IV; Rate: bolus; Site: left antecubital; ko2 03:05 Drug: Warfarin 5 mg [warfarin 5 mg tablet (1 tabs)] Route: PO; ko2 03:08 Drug: Levalbuterol 1.25 mg [levalbuterol 1.25 mg/0.5 mL solution for nebulization (0.5 nk1 mL)] Route: Nebulizer; 03:14 Follow up: Response: Nebulizer completed nk1 03:14 CANCELLED (Duplicate Order): Levalbuterol 1.25 mg Nebulizer once nk1 03:20 Drug: azithromycin 500 mg [azithromycin 500 mg intravenous solution] Route: IVPB; ko2 Infused Over: 1 hrs; Site: left antecubital; Signatures: Dispatcher [employer] EDDebi Villagran RN RN jan Lopresti, Mary-Elizabeth, Optometry Doctor Unit ml3 Thu Kebede RN RN lf1 Tien Martinez, DO cs11 Annette Morocho RN RN ko2 Gordy Diaz RN RN mgs Misty Worley, Reg Reg hs2 Shauna Cowart RT nk1 The chart was reviewed and I authenticate all verbal orders and agree with the evaluation and treatment provided.Corrections: (The following items were deleted from the chart) 02:13 02:05 MAGNESIUM LEVEL ordered. EDMS EDMS 02:14 02:05 CARDIAC MARKER PANEL ordered. EDMS EDMS 03:14 02:50 Levalbuterol 1.25 mg Nebulizer once ordered. mgs nk1 Attachments: 00:41 [facility] Payment Agreement hs2 02:55 Written Provider Order ml3 MTDD
[2016-09-22] MEDS ORDERED: POTASSIUM CHLORIDE 10 MEQ SR TABLET PO ONE (04:27)
[2016-09-22 07:16] LABS: BASO % 0.1 % (0.0-1.0); EOS % 0.3 % (0.0-3.0); LARGE UNSTAINED CELL # 0.1 K/mm3 (0.0-0.4); LYMPH # 0.5 K/mm3 (1.5-4.5); LYMPH % 4.9 % (24.0-44.0); MEAN CORPUSCULAR HEMOGLOBIN 28.9 pg (27.0-33.0); MEAN CORPUSCULAR HGB CONC 32.8 g/dl (32.0-36.5); MEAN CORPUSCULAR VOLUME 88.2 fl (80.0-96.0); MONO # 0.2 K/mm3 (0.0-0.8); MONO % 1.9 % (0.0-5.0); NEUTROPHILS # 8.9 K/mm3 (1.8-7.7); NEUTROPHILS % 91.8 % (36.0-66.0); PLATELET COUNT, AUTOMATED 317 k/mm3 (150-450); RED CELL DISTRIBUTION WIDTH 12.8 % (11.5-14.5); WHITE BLOOD COUNT 9.7 K/mm3 (4.0-10.0)
[2016-09-22] MEDS: ADVAIR DISKUS 250/50 INH PWD INH SCH ×2 (07:21→19:43)
[2016-09-22] MEDS: LEVALBUTEROL 1.25 MG/0.5 ML CONCENTRATE NEB INH SCH ×5 (07:22→23:23)
[2016-09-22 07:29] LABS: INR 2.07
[2016-09-22 07:45] LABS: ALBUMIN 2.9 GM/DL (3.2-5.2); ALBUMIN/GLOBULIN RATIO 0.69 (1.00-1.93); ALKALINE PHOSPHATASE 123 U/L (45-117); ALT/SGPT 22 U/L (12-78); ANION GAP 11 MEQ/L (8-16); AST/SGOT 19 U/L (15-37); BILIRUBIN,TOTAL 0.5 MG/DL (0.2-1.0); BLOOD UREA NITROGEN 13 MG/DL (7-18); CALCIUM LEVEL 8.5 MG/DL (8.8-10.2); CARBON DIOXIDE LEVEL 30 MEQ/L (21-32); CHLORIDE LEVEL 89 MEQ/L (98-107); CHOLESTEROL LEVEL 193 MG/DL (<200); CREATININE FOR GFR 0.72 MG/DL (0.70-1.30); GLOMERULAR FILTRATION RATE > 60.0 (>42); GLUCOSE, FASTING 124 MG/DL (83-110); POTASSIUM SERUM 3.8 MEQ/L (3.5-5.1); SODIUM LEVEL 130 MEQ/L (136-145); TOTAL PROTEIN 7.1 GM/DL (6.4-8.2); TRIGLYCERIDES LEVEL 83 MG/DL (<150)
--- NOTE | 2016-09-22 07:50 | HPE ---
DATE OF ADMISSION: 09/22/2016 PRIMARY CARE PHYSICIAN: Ayse Choudhary MD INPATIENT HOSPITALIST ATTENDING: Denise Garcia MD CHIEF COMPLAINT: Right lower quadrant abdominal pain. HISTORY OF PRESENT ILLNESS: 71-year-old male with history of atrial fibrillation on chronic Coumadin, hypertension, chronic obstructive pulmonary disease (COPD), reflux, left total knee replacement, obstructive sleep apnea (FEROZ) with no formal pulmonary function tests, actively smokes cigarettes a pack a day with more than 50 pack year history of smoking, who presents to the emergency room with a four day history of right sided flank pain and right lower quadrant abdominal pain described as "having bad gas." He describes burning pain, usually relieved with simethicone he takes over the counter, but with no relief today. It is better when he stands up and worse when he lies down and walks around. He denies any dysuria, urgency, frequency, fever, chills, diarrhea or constipation. The patient was unable to eat today due to severe pain. Yesterday he at very little food. He has also had a chronic cough of white sputum without headaches. He is unable to sleep secondary to severe pain, presenting to the hospital for further evaluation. The patient otherwise, denies any chest pain, pressure or tightness , lightheadedness, near syncope, upper or lower extremity weakness, changes in vision, weight gain or weight loss, unusual lumps or bumps, no recent travel, no sick contacts. The hospitalist service was called for admission when the patient was found to have bilateral lower lobe infiltrates with a right small pleural effusion. Incidental finding of extensive lymphadenopathy on CT of the chest with precarinal lymph nodes measuring 2.7 x 2.1 cm, subcarinal area measuring 6.3 x 4 cm and right hilar soft tissue measuring 6.4 x 3.4 cm with recommendations for biopsy versus followup with CT in 3, 9 and 12 months. The patient's and the patient have opted not to have inpatient workup for current nodules and would prefer to be referred to Dr. Kris Lacy, model and pattern supervisor, at discharge, hopefully within 1-2 weeks of hospital discharge. PAST MEDICAL HISTORY: Hypertension. Hyperlipidemia. Chronic obstructive pulmonary disease (COPD). Overweight. Obstructive sleep apnea (FEROZ). Active smoking. Abnormal EKG with atrial fibrillation. PAST SURGICAL HISTORY: Left total knee replacement. Right knee scope. Carpal tunnel repair bilaterally. Left ulnar nerve transposition. ALLERGIES: 1. XARELTO causing pain and weakness, epigastric pain. 2. ELIQUIS causing insomnia. HOME MEDICATIONS: - Coumadin 5 mg on Wednesday, and Wednesday; 10 mg all other days of the week - fish oil 1 gram twice a day - ranitidine 150 mg twice a day - Lasix 40 mg daily - atenolol 25 mg daily - guaifenesin 1200 mg daily - tamsulosin 0.4 mg daily - iron CR 65 daily - Advair Diskus 250/50 one puff twice a day - Spiriva 18 mcg daily - Ventolin inhaler SOCIAL HISTORY: The patient's healthcare proxy is Nikole Otero. No active DNR. Currently FULL CODE. Still actively smokes cigarettes, a pack a day for the past 50 years. He is retired. No alcohol use or recreational drug use. REVIEW OF SYSTEMS: Per history of present illness, 12 point system otherwise negative. VITAL SIGNS: Temperature 97.8, blood pressure 132/68, pulse 78 and sinus rhythm , respiratory rate 19, 95% on room air. 84.82 kg, 5 feet 11 inches tall. PHYSICAL EXAMINATION: Generally, patient is awake, alert, oriented times three. No conversational dyspnea. No cyanosis. Able to complete full sentences. No jugular venous distention (JVD) or thyromegaly. Pupils are round and reactive to light and accommodation. Extraocular muscles are intact. Dry mucous membranes. Lungs diminished breath sounds, coarse wheezing bilaterally. Air entry is diminished with prolonged expiration. The patient has rhonchorous breath sounds , particularly at the bases. Heart S1, S2 irregularly irregular. Abdomen is obese, soft, tender in the right upper and right lower quadrant. No rebound or guarding. Positive bowel sounds. No hepatosplenomegaly. Extremities trace pitting edema bilaterally. Skin warm and dry, well perfused, pink in color. LABORATORY DATA: White count 11.9, hemoglobin 13, hematocrit 38, platelet count 353, 80% neutrophils. Sodium 133, potassium 3.3, chloride 89, bicarb 34, BUN 12 , creatinine 0.67, glucose of 110, calcium of 9.1. Liver profile total bilirubin 0.5, direct bilirubin 0.1, total protein 7.7, albumin 3.2, AST 19, ALT 23, alkaline phosphatase 128, amylase 43, lipase 71, INR of 1.85. PT 21, PTT 46.2. Arterial blood gas pH of 7.47, CO2 45, 02 of 58, bicarb of 32.6. CT abdomen and pelvis the kidneys are normal in size bilaterally. No evidence of hydronephrosis or nephrolithiasis. Liver, spleen, pancreas and gallbladder, right adrenal gland are unremarkable. Low attenuation nodule left adrenal. The aorta demonstrates normal caliber and contour. No abdominal lymphadenopathy or ascites. The bowel is unremarkable. No obstructive inflammatory changes. Appendix is normal. Urinary bladder is within normal limits. No pelvic lymphadenopathy or ascites. Other pelvic structures appear unremarkable. No suspicious osseous abnormalities. Severe multilevel degenerative disc disease throughout the lower thoracic and lumbar spine with sclerosis, severe disc osteophyte complexes with an 8 mm retrolisthesis of L3 upon L4, and a 5 mm retrolisthesis of L4 upon L5. There is a 7 mm anterior spondylolisthesis of L5 upon S1. Moderately severe central canal stenosis at L3-L4, L2-L3 and bilateral neuroforaminal narrowing noted at these levels as well. CT of the chest shows extensive adenopathy. A precarinal lymph nodes measuring 2.7 x 2.1 cm. Large amount of right hilar soft tissue is noted. Suspected to represent adenopathy. The area measures 6.4 x 3.4 cm, soft tissue and subcarinal region measuring 6.3 x 4 cm. The visualized portions of the thyroid gland is unremarkable. There are mild emphysematous changes bilaterally, predominantly in the upper lobe. Bronchiectasis is seen on the right middle lobe and several nodules on the right middle, right lower lobe measuring up to 11 mm in diameter. Smaller nodules are seen on the left lower lobe measuring up to 6 mm in diameter. A small right lower lobe infiltrate and pleural effusion. There is also a small left lower lobe infiltrate. Limited imaging of the upper abdomen does not demonstrate any acute abnormalities. There are no suspicious osseous lesions. Numerous pulmonary nodules within the lung bilaterally measuring up to 11 mm in diameter. By Fleischner Society protocol recommendations, a followup CT in 3, 9 , and 24 months is suggested. Dynamic contrast enhanced CT/PET scan or biopsy should also be considered. Extensive mediastinal and right hilar adenopathy. Biopsy should be considered. ASSESSMENT/PLAN: This is a 71-year-old male with a 50 pack year history of smoking, continues to smoke a pack a day, COPD, atrial fibrillation, probable sleep apnea with no formal study in the past, reflux, hypertension, atrial fibrillation on chronic Coumadin, with recent left total knee replacement, who presents to the emergency room with four day history of right sided abdominal pain found to have bilateral lower lobe pneumonia and incidental findings of significant and extensive hilar and mediastinal lymphadenopathy with numerous pulmonary nodules. The family has currently decided not to pursue an evaluation of current pulmonary nodules or lymphadenopathy during this admission, but would prefer to be referred to Dr. Kris Lacy, model and pattern supervisor, once he is discharged from the hospital. The patient will be admitted as an inpatient for the following issues under the hospitalist service. He will be signed out to Dr. Denise Garcia. IMPRESSION: 1. Bilateral lower lobe pneumonia, community acquired. The patient will be given IV ceftriaxone, azithromycin, supplemental oxygen if needed if oxygen saturations at rest or ambulation is less than 88%. Nebulizer treatments every 4 hours and as needed every 2 hours for worsening shortness of breath. Sputum culture and sensitivity if possible. Obtain urine legionella antigen, urine streptococcal antigen, two sets of blood cultures, respiratory panel and MRSA screen. Supportive care and change to oral antibiotics once symptomatically improved to complete a 7-10 day course as outpatient. 2. Incidental finding of extensive mediastinal and right hilar adenopathy with numerous pulmonary nodules bilaterally measuring 11 mm in diameter. The patient and the patient's family at the bedside would prefer discharge from the hospital once medically stable and outpatient followup with pulmonary title curative specialist, Dr. Kris Lacy in the office. They prefer not to have an inpatient model and pattern supervisor evaluate him during this admission and prefer to wait despite the risk of proliferation. Differential diagnosis for significant pulmonary nodules in the hilar and mediastinal adenopathy includes sarcoidosis as well as tuberculosis or lymphoma. At this time, despite these diagnoses, the family and the patient have decided not to pursue any further evaluation during this admission and prefer outpatient workup. We will place a PPD to rule out tuberculosis. 3. COPD with acute exacerbation. The patient currently has significant wheezing, decreased air entry and prolonged expiration. He will benefit from intravenous steroids. He will be given 125 mg times one and 80 mg IV every 6 hours, nebulizer routinely and as needed, as well as antibiotics, supplemental oxygen if saturations are below 80%. Rapid taper if symptomatically improves in the next few days. 4. Obstructive sleep apnea (FEROZ) with no formal sleep study as an outpatient. Will check nocturnal oximetry. The patient will need a formal sleep study as he apparently has severe pulmonary hypertension on echocardiogram done two weeks ago by his benefits sales consultant, Dr. Moreno. 5. Atrial fibrillation. Patient is rate controlled. Will continue on his home medications and Coumadin. Since he is subtherapeutic, he will be given an additional 5 mg dose of Coumadin. He had taken 10 mg this morning. Recheck INR in the morning and resume home dose once he is therapeutic, adjust as needed. Resume home dose of atenolol. 6. Active smoking. Tobacco cessation counseling. Nicotine patch. Nicotine gum if needed. 7. Hyperlipidemia. Check fasting lipid profile and continue omega 3 fish oil supplements. The patient will be assigned to Dr. Denise Garcia at 7:00 a.m. on 09/22/2016. SHAMAR
[2016-09-22] MEDS: OMEPRAZOLE 20 MG CAP PO SCH (08:45)
[2016-09-22] MEDS: cefTRIAXone SOD 2 GM in D5W MINI-BAG PLUS 50 ML IV SCH (08:45)
[2016-09-22] MEDS: FUROSEMIDE 40 MG TAB PO SCH (08:45)
[2016-09-22] MEDS: LACTOBACILLUS ACIDOPHILUS CAP (BACID) PO SCH ×2 (08:45→18:17)
[2016-09-22] MEDS: NICOTINE 7 MG/24 HR TRANSDERMAL TD SCH (08:46)
[2016-09-22] MEDS: PERCOCET 5MG/325MG TAB PO PRN (08:47)
[2016-09-22] MEDS ORDERED: methylPREDNISolone INJ 125 MG/2 ML VIAL (J2930) IV SCH (09:00)
[2016-09-22] MEDS ORDERED: SODIUM CHLORIDE 0.9% INJ 10 ML SYR IV SCH (09:00)
[2016-09-22] MEDS ORDERED: TUBERCULIN PPD 5 UNITS/0.1 ML ID ONE (10:00)
--- NOTE | 2016-09-22 10:01 | REP ---
PORTABLE CHEST X-RAY: Sitting AP view. HISTORY: Biliary colic. Comparison study August 24, 2016. FINDINGS: There are increased interstitial markings in the bases bilaterally unchanged from the prior study. Increased density in the right lower lobe is seen consistent with infiltrate. There is increased right perihilar density as well again noted. Heart is not felt to be enlarged. IMPRESSION: Patchy infiltrative densities right perihilar and right lower lobe regions. Signed by Everardo Acevedo MD 09/22/2016 01:58 P
--- NOTE | 2016-09-22 16:11 | IPNPDOC ---
Text Note Date of Service The patient was seen on 09/22/16. NOTE Subjective: Patent is a 71 year old male with a PMHx of A. fib (on Coumadin), HTN , COPD, FEROZ and GERD who presented to the ER with complaints of RUQ abdominal pain, chronic cough with white sputum. Patient was found to have a bilateral LL infiltrate with small R pleural effusion. Patient was admitted for CAP. Imaging also revealed nodules that the patient's felt comfortable following up with Dr. Lacy as an outpatient for. Patient was seen and examined at the bedside. Objective: Vitals (See below) General: Lying in bed, no acute distress, comfortable, AAOx3 HEENT: NC, AT CVS: Irregularly irregular, +S1S2 Lungs: Fair air entry b/l, + wheezing and rhonchi bilaterally Abdomen: Soft, ND, NT, +BSx4 Extremities: +PPx4, Trace edema, -Calf tenderness Assessment and plan: 1. Dyspnea - likely 2/2 CAP and Acute COPD exacerbation - Presented with shortness of breath and RUQ pain - Physical reveals rhonchi and wheezing - CT Chest 09/22: RLL infiltrate, small R pleural effusion and smaller LLL infiltrate - Blood cultures currently negative - c/w supplemental oxygen - c/w Solumedrol - will taper down - c/w Ceftriaxone and Azithromycin (Day #2) - c/w duoneb 2. Extensive mediastinal and R hilar adenopathy with numerous pulmonary nodules - Patient will follow up with telecommunications consultant (Dr. Lacy) as an outpatient - possible biopsy or repeat imaging 3. FEROZ - not on CPAP - will need to have outpatient sleep study performed - will follow with Pulmonary as an oupatient 4. A. fib - rate controlled - INR therapeutic - c/w atenolol - c/w Coumadin 5. Active smoking - c/w tobacco cessation and nicotine patch 6. DLP - c/w omega 3 fish oil 7. DVT prophylaxis - c/w heparin VS,Fishbone, I+O VS, Fishbone, I+O Laboratory Tests 09/21/16 22:54 Red Blood Count 4.40, Mean Corpuscular Volume 88.1, Mean Corpuscular Hemoglobin 29.5, Mean Corpuscular Hemoglobin Concent 33.5, Red Cell Distribution Width 13.1 , Neutrophils (%) (Auto) 80.5 H, Lymphocytes (%) (Auto) 7.6 L, Monocytes (%) ( Auto) 8.2 H, Eosinophils (%) (Auto) 1.4, Basophils (%) (Auto) 0.4, Neutrophils # (Auto) 9.6 H, Lymphocytes # (Auto) 1.1 L, Monocytes # (Auto) 1.0 H, Eosinophils # (Auto) 0.2, Basophils # (Auto) 0.0 09/22/16 06:49 Red Blood Count 4.15 L, Mean Corpuscular Volume 88.2, Mean Corpuscular Hemoglobin 28.9, Mean Corpuscular Hemoglobin Concent 32.8, Red Cell Distribution Width 12.8, Neutrophils (%) (Auto) 91.8 H, Lymphocytes (%) (Auto) 4.9 L, Monocytes (%) (Auto) 1.9, Eosinophils (%) (Auto) 0.3, Basophils (%) (Auto ) 0.1, Neutrophils # (Auto) 8.9 H, Lymphocytes # (Auto) 0.5 L, Monocytes # (Auto ) 0.2, Eosinophils # (Auto) 0.0, Basophils # (Auto) 0.0, Calcium Level 8.5 L, Aspartate Amino Transf (AST/SGOT) 19, Alanine Aminotransferase (ALT/SGPT) 22, Alkaline Phosphatase 123 H, Total Bilirubin 0.5, Triglycerides Level 83, Cholesterol Level 193, HDL Cholesterol 71, LDL Cholesterol 105.4 H, Total Protein 7.1, Albumin 2.9 L Vital Signs Date Time Temp Pulse Resp B/P Pulse Ox O2 Delivery O2 Flow Rate FiO2 09/22/16 10:29 Nasal Cannula 5.0 09/22/16 09:24 98.1 92 14 188/98 93 SUZAN PEARSON MD Sep 22, 2016 16:11
[2016-09-22] MEDS ORDERED: WARFARIN SOD 5 MG TAB PO SCH (17:00)
[2016-09-22] MEDS ORDERED: TAMSULOSIN 0.4 MG CAP PO SCH (18:00)
[2016-09-22] MEDS: methylPREDNISolone INJ 125 MG/2 ML VIAL (J2930) IV SCH ×2 (18:17→23:55)
[2016-09-22] MEDS ORDERED: TIOTROPIUM INHALER/CAPSULE (SPIRIVA) INH SCH (21:00)
[2016-09-22] MEDS ORDERED: ATENOLOL 25 MG TAB PO SCH (21:00)
[2016-09-22] MEDS ORDERED: OMEGA-3 1050MG CAPSULE PO SCH (21:00)
--- NOTE | 2016-09-22 22:26 | ECGEPIP ---
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
[2016-09-23] MEDS: IPRATROPIUM 0.02% SOLN 0.5MG/2.5 ML NEB INH SCH ×3 (04:00→12:15)
[2016-09-23] MEDS ORDERED: AZITHROMYCIN INJ 500 MG, VIAL MATE ADAPTER 1 EACH in D5W 250 ML IV SCH (04:00)
[2016-09-23] MEDS: LEVALBUTEROL 1.25 MG/0.5 ML CONCENTRATE NEB INH SCH ×3 (04:00→12:14)
[2016-09-23 06:00] VITALS: BP 144/74
[2016-09-23 07:03] LABS: EOS % 0.4 % (0.0-3.0); LARGE UNSTAINED CELL # 0.1 K/mm3 (0.0-0.4); LARGE UNSTAINED CELL % 0.9 % (0.0-4.0); LYMPH # 0.7 K/mm3 (1.5-4.5); LYMPH % 6.1 % (24.0-44.0); MEAN CORPUSCULAR HEMOGLOBIN 29.5 pg (27.0-33.0); MEAN CORPUSCULAR HGB CONC 32.9 g/dl (32.0-36.5); MEAN CORPUSCULAR VOLUME 89.8 fl (80.0-96.0); MONO # 0.6 K/mm3 (0.0-0.8); NEUTROPHILS # 8.1 K/mm3 (1.8-7.7); NEUTROPHILS % 86.6 % (36.0-66.0); PLATELET COUNT, AUTOMATED 317 k/mm3 (150-450); RED CELL DISTRIBUTION WIDTH 13.1 % (11.5-14.5); WHITE BLOOD COUNT 9.3 K/mm3 (4.0-10.0)
[2016-09-23 07:07] LABS: INR 2.71
[2016-09-23 07:18] LABS: ANION GAP 7 MEQ/L (8-16); BLOOD UREA NITROGEN 19 MG/DL (7-18); CARBON DIOXIDE LEVEL 33 MEQ/L (21-32); CHLORIDE LEVEL 94 MEQ/L (98-107); CHOLESTEROL LEVEL 205 MG/DL (<200); CREATININE FOR GFR 0.77 MG/DL (0.70-1.30); GLOMERULAR FILTRATION RATE > 60.0 (>42); GLUCOSE, FASTING 148 MG/DL (83-110); POTASSIUM SERUM 3.8 MEQ/L (3.5-5.1); SODIUM LEVEL 134 MEQ/L (136-145); TRIGLYCERIDES LEVEL 52 MG/DL (<150)
[2016-09-23] MEDS: ADVAIR DISKUS 250/50 INH PWD INH SCH (07:43)
[2016-09-23] MEDS: NICOTINE 7 MG/24 HR TRANSDERMAL TD SCH (08:02)
[2016-09-23] MEDS: cefTRIAXone SOD 2 GM in D5W MINI-BAG PLUS 50 ML IV SCH (08:45)
[2016-09-23] MEDS: LACTOBACILLUS ACIDOPHILUS CAP (BACID) PO SCH (08:46)
[2016-09-23] MEDS: PERCOCET 5MG/325MG TAB PO PRN ×2 (08:46→13:25)
[2016-09-23] MEDS: OMEPRAZOLE 20 MG CAP PO SCH (08:46)
[2016-09-23] MEDS: FUROSEMIDE 40 MG TAB PO SCH (08:46)
[2016-09-23] MEDS: methylPREDNISolone INJ 125 MG/2 ML VIAL (J2930) IV SCH (08:46)
[2016-09-23] MEDS ORDERED: PRED10TA FT (11:30)
[2016-09-23] MEDS ORDERED: LEVA750T PO (11:30)
[2016-09-23] MEDS ORDERED: INFLUENZA VIRUS VACCINE HIGH DOSE 0.5 ML SYRINGE (90662) IM ONE (13:00)
--- NOTE | 2016-09-23 16:30 | DSES ---
DATE OF ADMISSION: 09/22/2016 DATE OF DISCHARGE: 09/23/2016 PRIMARY CARE PROVIDER: Dr. Ayse Choudhary REFERRING PHYSICIAN: None. CONSULTING PHYSICIAN: None. CONDITION ON DISCHARGE: Stable. FINAL DIAGNOSIS: Dyspnea secondary to community-acquired pneumonia and acute chronic obstructive pulmonary disease (COPD) exacerbation. PROCEDURES: None. HISTORY OF PRESENT ILLNESS: The patient is a 71-year-old male with a past medical history of atrial fibrillation on Coumadin, hypertension, chronic obstructive pulmonary disease (COPD), obstructive sleep apnea, and gastroesophageal reflux disease (GERD) who presented to the emergency room with complaints of right upper quadrant abdominal pain and chronic cough with white sputum. The patient was found to have a bilateral left lower lobe infiltrate and a small right pericardial effusion. The patient was admitted for community-acquired pneumonia. Imaging also revealed nodules that the patient felt comfortable following Dr. Lacy as an outpatient for. HOSPITAL COURSE: 1. Dyspnea, likely secondary to community-acquired pneumonia and acute chronic obstructive pulmonary disease exacerbation. He presented with shortness of breath and right upper quadrant pain. Physical revealed rhonchi and wheezing. CT chest on 09/22/2016 revealed right lower lobe infiltrate, small right pleural effusion, and smaller left lower lobe infiltrate. Blood cultures remain negative. He was put on supplemental oxygen. Continued with Solu-Medrol on a tapering dose. Continued with ceftriaxone and azithromycin while he was inpatient and as an outpatient, he has been transitioned to Levaquin. The patient was also put on DuoNeb therapy. Upon discharge, the patient has been given a tapering dose of prednisone to be taken as an outpatient. He has been advised to followup with his primary care provider as well as pulmonary doctor. The patient notes that he will be following up within the next five days. 2. Extensive mediastinal and right hilar adenopathy with numerous pulmonary nodules. The patient will followup with information technology instructor, Dr. Lacy, as an outpatient for possible biopsy or repeat imaging. 3. Obstructive sleep apnea. He is not on continuous positive airway pressure (CPAP). Will need to have an outpatient sleep study performed. Will followup with pulmonary as an outpatient. 4. Atrial fibrillation. Rate controlled. International normalized ratio (INR) is therapeutic. Continue with atenolol. Continue with Coumadin. 5. Active smoking. Continue with tobacco cessation and nicotine patch. 6. Dyslipidemia. Continue with omega-3 fish oil. 7. Deep vein thrombosis (DVT) prophylaxis. Continue with heparin. DISCHARGE MEDICATIONS: The patient is being discharged home with the following medication list: - albuterol two puffs inhaled every four hours as needed for shortness of breath - atenolol 25 mg by mouth every evening - fish oil 2000 mg by mouth every evening - furosemide 40 mg by mouth daily - guaifenesin 1200 mg by mouth every evening - ranitidine two tablets by mouth every evening - Advair Diskus 250/50 one puff inhaled twice a day - tamsulosin one capsule by mouth every evening - tiotropium/Spiriva one inhalation every evening - warfarin to be taken as directed New prescriptions provided include: - Levaquin 750 mg by mouth daily for five days - prednisone 10 mg as directed DISCHARGE INSTRUCTIONS: The patient has been advised to followup with his primary care provider and information technology instructor within the next five days. He has advised to remain compliant with treatment plan and medications and return to the emergency room if he experiences any problems. TIME SPENT ON DISCHARGE: 35 minutes.
[2016-09-23] MEDS ORDERED: WARFARIN SOD 10 MG TAB PO SCH (17:00)
--- NOTE | 2016-09-24 05:05 | EDDOCDS ---
Nurse's Notes [facility] Name: Stalin Boateng Age: 71 yrs Sex: Male : 1945 Arrival Date: 09/21/2016 Time: 21:32 Bed 15 Private MD: Ayse Choudhary A Diagnosis: Pneumonia in diseases classified elsewhere;Hypoxemia Presentation: 09/21 21:42 Presenting complaint: Patient states: Right abdominal pain that has been ongoing for lf1 two days and unrelieved with simethicone, tums and multiple other "gas" remedies. Pt. reports history of multiple similar episodes but states this is worse than usual. Pain is currently 10/10. Denies nausea, difficulty urinating, constipation and diarrhea. Acute neurological deficits are not present. Mechanism of Injury: No Mechanism of Injury. Adult Sepsis Screening: The patient does not have new or worsening altered mentation. Patient's respiratory rate is less than 22. Systolic blood pressure is greater than 100. Patient has a qSOFA score of 0- Negative Sepsis Screen. Suicide/Homicide risk assessment- the patient denies having any suicidal and/or homicidal ideations and does not present with any other emotional, behavioral or mental health complaints. Status: Patient is not a hvac service technician or dependent. Transition of care: patient was not received from another setting of care. 21:42 Acuity: HEMAL Level 3 lf1 21:42 Method Of Arrival: Walkin/Carried/Asstd lf1 Triage Assessment: 21:53 General: Appears in no apparent distress, Behavior is cooperative. Pain: Location: lf1 right upper quadrant and right lower quadrant Pain currently is 10 out of 10 on a pain scale. Neurological: Level of Consciousness is awake, alert, Oriented to person, place, time. EENT: Respiratory: Respiratory effort is even, unlabored. GI: Denies nausea, vomiting. Derm: Skin is normal. Injury Description: No known injury. Historical: - Allergies: Xareltopain and weakness; pardaxaepigastric pain; Eliquisinsomnia; - Home Meds: 1. Coumadin 5 mg Oral tab 1 tab once daily adjusted based on INR 2. Fish Oil 1,000 mg Oral cap twice a day (Last dose: 09/21/2016 18:00) 3. ranitidine HCl 150 mg Oral cap 1 cap 2 times per day (Last dose: 09/21/2016 18:00) 4. furosemide 40 mg Oral tab 1 tab once daily (Last dose: 09/21/2016 15:00) 5. atenolol 25 mg Oral tab 1 tab once daily (Last dose: 09/21/2016 18:00) 6. guaifenesin 1,200 mg Oral Tb12 (Last dose: 09/21/2016 18:00) 7. tamsulosin 0.4 mg oral cp24 1 cap once daily (Last dose: 09/21/2016 18:00) 8. Iron CR 65 mg Oral 9. Advair Diskus 250-50 mcg/dose Inhl dsdv 1 puff 2 times per day 10. Spiriva with HandiHaler 18 mcg Inhl CpDv 1 cap once daily 11. ventolin inhaler - PMHx: Hypertension; COPD; afib; GERD; - PSHx: left total knee; right knee scope; Carpal Tunnel Repair- Bilateral; left ulnar nerve transposition; - Social history: Smoking status: Patient uses tobacco products, current every day smoker. No barriers to communication noted, The patient speaks fluent Cambodian, Speaks appropriately for age, Preferred Language: Cambodian. - Family history: Not pertinent. - : The pt / caregiver states he / she is on anticoagulants: coumadin. Home medication list is obtained from pill bottles. - Exposure Risk Screening:: None identified. Screenin:35 Screening information is obtained from the patient. Fall risk: At risk due to age. mgs Assistance ADL's: requires no assistance with activities of daily living. Abuse/DV Screen: The patient / caregiver reports he/she is: not in a situation that causes fear, pain or injury. Nutritional screening: No deficits noted. Advance Directives: Currently, there is a health care proxy, Nikole Otero. There is no active DNR order. home support is adequate. Assessment: 22:31 General: Appears uncomfortable, Behavior is cooperative. Pain: Location: right upper mgs quadrant Pain currently is 10 out of 10 on a pain scale. Neurological: Level of Consciousness is awake, alert, Oriented to person, place, time. Cardiovascular: Capillary refill < 3 seconds Heart tones S1 S2 present. Respiratory: Airway is patent Respiratory effort is even, unlabored, Respiratory pattern is regular, symmetrical, Breath sounds with rhonchi expiratory bilaterally. Breath sounds are diminished bilaterally. GI: Abdomen is flat, Bowel sounds present X 4 quads. Derm: Skin is pink, warm & dry. Musculoskeletal: No deficits noted. 23:14 General: Appears uncomfortable, Behavior is cooperative. Neurological: Level of mgs Consciousness is awake, alert, Oriented to person, place, time. Cardiovascular: Capillary refill < 3 seconds. Respiratory: Airway is patent Respiratory effort is even, unlabored, Respiratory pattern is regular, symmetrical. Derm: Skin is pink, warm & dry. 09/22 00:14 General: Appears in no apparent distress, Behavior is appropriate for age, cooperative. mgs Pain: Location: right upper quadrant Pain currently is 3 out of 10 on a pain scale. Neurological: Level of Consciousness is awake, alert, Oriented to person, place, time. Cardiovascular: Capillary refill < 3 seconds. Respiratory: Airway is patent Respiratory effort is even, unlabored, Respiratory pattern is regular, symmetrical. Derm: Skin is pink, warm & dry. 01:10 General: Appears in no apparent distress, Behavior is appropriate for age, cooperative. mgs Neurological: Level of Consciousness is awake, alert, Oriented to person, place, time. Cardiovascular: Capillary refill < 3 seconds. Respiratory: Airway is patent Respiratory effort is even, unlabored, Respiratory pattern is regular, symmetrical. Derm: Skin is pink, warm & dry. 01:50 Adult Sepsis Screening: The patient does not have new or worsening altered mentation. mgs Patient's respiratory rate is less than 22. Systolic blood pressure is greater than 100. Patient has a qSOFA score of 0- Negative Sepsis Screen. General: Appears in no apparent distress, Behavior is appropriate for age, cooperative. Neurological: Level of Consciousness is awake, alert, Oriented to person, place, time. Cardiovascular: Capillary refill < 3 seconds. Respiratory: Airway is patent Respiratory effort is even, unlabored, Respiratory pattern is regular, symmetrical. Derm: Skin is pink, warm & dry. 03:23 General: Appears in no apparent distress, Behavior is appropriate for age, cooperative. ko2 Pain: Location: right upper quadrant. Neurological: Level of Consciousness is awake, alert, Oriented to person, place, time. Cardiovascular: Heart tones S1 S2 present. Respiratory: Airway is patent Respiratory effort is even, unlabored, Respiratory pattern is regular, symmetrical, Breath sounds with wheezes bilaterally. Derm: Skin is pink, warm & dry. 03:28 General: Fax sent to [address] [place] [id number]. ko2 Vital Signs: 09/21 21:33 BP 132 / 68; Pulse 78; Resp 19; Temp 97.8(O); Pulse Ox 95% on R/A; Weight 84.82 kg (R); lr2 Height 5 ft. 11 in. (180.34 cm); Pain 10/10; 09/22 01:10 BP 118 / 67; Pulse 79; Resp 18; Temp 96.1; Pulse Ox 93% on R/A; mgs 02:41 BP 118 / 67 RA Sitting (auto/reg); Pulse 91 MON; Resp 22 S; Temp 97.0(O); Pulse Ox 91% cln on R/A; Pain 0/10; 03:21 BP 120 / 69; Pulse 90; Resp 22; Temp 97.2; Pulse Ox 93% ; ko2 09/21 21:33 Body Mass Index 26.08 (84.82 kg, 180.34 cm) lr2 Vitals: 09/21 21:33 Log In Time: September 21, 2016 at 21:32. lr2 ED Course: 21:33 Patient visited by Rafaela Evans. lr2 21:33 Patient moved to Waiting lr2 21:35 Ayse Choudhary is Private Physician. lr2 21:35 Patient moved to Pre RCE lr2 21:45 Triage Initiated lf1 22:02 Misty Ferrell, SANTO is Primary Nurse. ar3 22:02 Patient moved to 15 ar3 22:15 Primary Nurse role handed off by Misty Ferrell RN kip 22:23 Tien Martinez DO is Attending Physician. cs11 22:23 Patient visited by Tien Martinez DO. cs11 22:31 Gordy Diaz,SANTO is Primary Nurse. mgs 22:36 Patient visited by Gordy Diaz,SANTO. mgs 22:59 Pt & Aptt Sent. mgs 22:59 Lipase Sent. mgs 22:59 Amylase Sent. mgs 22:59 Liver Profile Sent. mgs 22:59 MED Profile Sent. mgs 22:59 CBC with Diff Sent. mgs 22:59 -Blood Culture Sent. mgs 23:15 Patient visited by Gordy Diaz,SANTO. mgs 23:15 Inserted saline lock: 20 gauge in left antecubital area and blood collected. The mgs patient tolerated the procedure well. 23:22 BLOOD CULTURES Sent. nn1 09/22 00:18 Patient visited by Gordy Diaz RN. mgs 00:41 [facility] Payment Agreement was scanned into [employer] and attached to record. hs2 01:11 Patient visited by Gordy Diaz RN. mgs 01:12 CT ABD & PELVIS: IV Contrast Only Returned. EDMS 01:32 -Arterial Blood Gas Sent. dk 01:47 CT Chest Without Contrast Returned. EDMS 01:51 Patient visited by Gordy Diaz RN. mgs 01:56 Vera Thomas is Hospitalizing Provider. cs11 02:42 Patient visited by Melissa Lozano PCA. cln 02:55 Written Provider Order was scanned into [employer] and attached to record. ml3 03:22 The patient / caregiver is instructed regarding the plan of care and ED course. ko2 03:22 No procedures done that require assistance. ko2 Administered Medications: 09/21 23:14 Drug: NS 0.9% 500 ml [sodium chloride 0.9 % intravenous solution] Route: IV; Rate: mgs bolus; Site: left antecubital; 09/22 03:22 Follow up: IV Status: Completed infusion; IV Intake: 500ml ko2 09/21 23:14 Drug: Dilaudid - HYDROmorphone 0.5 mg [hydromorphone 1 mg/mL injection syringe (0.5 mgs mL)] Route: IVP; Site: left antecubital; 23:50 Drug: Dilaudid - HYDROmorphone 0.5 mg [hydromorphone 1 mg/mL injection syringe (0.5 mgs mL)] Route: IVP; Site: right antecubital; 09/22 00:15 Follow up: Response: Pain is decreased mgs 00:15 Drug: NS 0.9% 500 ml [sodium chloride 0.9 % intravenous solution] Route: IV; Rate: mgs bolus; Site: left antecubital; 00:16 Drug: Potassium Chloride 20 mEq [potassium chloride ER 10 mEq tablet,extended release mgs (2 tabs)] Route: PO; 01:51 Drug: cefUROXime 1.5 grams [cefuroxime sodium 1.5 gram solution for injection] Route: mgs IV; Rate: calculated rate; Infused Over: 30 mins; Site: left antecubital; 03:20 Follow up: IV Status: Completed infusion; IV Intake: 50ml ko2 01:51 Drug: ketorolac 30 mg [ketorolac 30 mg/mL (1 mL) injection solution (1 mL)] Route: IVP; mgs Site: left antecubital; 03:05 Drug: solumedrol 125 mg Route: IV; Rate: bolus; Site: left antecubital; ko2 03:05 Drug: Warfarin 5 mg [warfarin 5 mg tablet (1 tabs)] Route: PO; ko2 03:08 Drug: Levalbuterol 1.25 mg [levalbuterol 1.25 mg/0.5 mL solution for nebulization (0.5 nk1 mL)] Route: Nebulizer; 03:14 Follow up: Response: Nebulizer completed nk1 03:14 CANCELLED (Duplicate Order): Levalbuterol 1.25 mg Nebulizer once nk1 03:20 Drug: azithromycin 500 mg [azithromycin 500 mg intravenous solution] Route: IVPB; ko2 Infused Over: 1 hrs; Site: left antecubital; Intake: 03:20 IV: 50.00ml; Total: 50.00ml. ko2 03:22 IV: 500.00ml; Total: 550.00ml. ko2 RT: 01:32 ABG's drawn from left radial artery allens test done and positive pressure held for 5 dk minutes no bleeding noted pressure bandage applied specimen sent pt. tolerated well. 03:08 Initial Med Neb Given as ordered Patient was instructed and evaluated on procedure nk1 Patient tolerated procedure well without adverse effect. Respiratory: Airway is patent Respiratory effort is even, unlabored, Respiratory pattern is regular symmetrical, Breath sounds are diminished bilaterally. fine high pitch scattered wheezes and rhonchi bilaterally. patient states he has a frequent cough which is productive of green sputum. 03:14 Respiratory: Breath sounds with increased aeration, louder expiratory wheezes heard nk1 bilaterally. Hacking congested sounding cough with no sputum production at this time. Patient states he does not feel significant change after therapy. Order Results: Lab Order: CBC with Diff; SPEC'M 09/21/16 22:54 Test: WHITE BLOOD COUNT; Value: 11.9; Range: 4.0-10.0; Abnormal: Above high normal; Units: K/mm3; Status: F Test: RED BLOOD COUNT; Value: 4.40; Range: 4.30-6.10; Units: M/mm3; Status: F Test: HEMOGLOBIN; Value: 13.0; Range: 14.0-18.0; Abnormal: Below low normal; Units: g/dl; Status: F Test: HEMATOCRIT; Value: 38.7; Range: 42.0-52.0; Abnormal: Below low normal; Units: %; Status: F Test: MEAN CORPUSCULAR VOLUME; Value: 88.1; Range: 80.0-96.0; Units: fl; Status: F Test: MEAN CORPUSCULAR HEMOGLOBIN; Value: 29.5; Range: 27.0-33.0; Units: pg; Status: F Test: MEAN CORPUSCULAR HGB CONC; Value: 33.5; Range: 32.0-36.5; Units: g/dl; Status: F Test: RED CELL DISTRIBUTION WIDTH; Value: 13.1; Range: 11.5-14.5; Units: %; Status: F Test: PLATELET COUNT, AUTOMATED; Value: 353; Range: 150-450; Units: k/mm3; Status: F Test: NEUTROPHILS %; Value: 80.5; Range: 36.0-66.0; Abnormal: Above high normal; Units: %; Status: F Test: LYMPH %; Value: 7.6; Range: 24.0-44.0; Abnormal: Below low normal; Units: %; Status: F Test: MONO %; Value: 8.2; Range: 0.0-5.0; Abnormal: Above high normal; Units: %; Status: F Test: EOS %; Value: 1.4; Range: 0.0-3.0; Units: %; Status: F Test: BASO %; Value: 0.4; Range: 0.0-1.0; Units: %; Status: F Test: LARGE UNSTAINED CELL %; Value: 1.8; Range: 0.0-4.0; Units: %; Status: F Test: NEUTROPHILS #; Value: 9.6; Range: 1.8-7.7; Abnormal: Above high normal; Units: K/mm3; Status: F Test: LYMPH #; Value: 1.1; Range: 1.5-4.5; Abnormal: Below low normal; Units: K/mm3; Status: F Test: MONO #; Value: 1.0; Range: 0.0-0.8; Abnormal: Above high normal; Units: K/mm3; Status: F Test: EOS #; Value: 0.2; Range: 0.0-0.50; Units: K/mm3; Status: F Test: BASO #; Value: 0.0; Range: 0.0-0.2; Units: K/mm3; Status: F Test: LARGE UNSTAINED CELL #; Value: 0.2; Range: 0.0-0.4; Units: K/mm3; Status: F Lab Order: MED Profile; SPEC'M 09/21/16 22:54 Test: GLUCOSE, FASTING; Value: 110; Range: 83-110; Units: MG/DL; Status: F Test: BLOOD UREA NITROGEN; Value: 12; Range: 7-18; Units: MG/DL; Status: F Test: CREATININE FOR GFR; Value: 0.67; Range: 0.70-1.30; Abnormal: Below low normal; Units: MG/DL; Status: F Test: GLOMERULAR FILTRATION RATE; Value: > 60.0; Range: >42; Status: F Test: SODIUM LEVEL; Value: 133; Range: 136-145; Abnormal: Below low normal; Units: MEQ/L; Status: F Test: POTASSIUM SERUM; Value: 3.3; Range: 3.5-5.1; Abnormal: Below low normal; Units: MEQ/L; Status: F Test: CHLORIDE LEVEL; Value: 89; Range: 98-107; Abnormal: Below low normal; Units: MEQ/L; Status: F Test: CARBON DIOXIDE LEVEL; Value: 34; Range: 21-32; Abnormal: Above high normal; Units: MEQ/L; Status: F Test: ANION GAP; Value: 10; Range: 8-16; Units: MEQ/L; Status: F Test: CALCIUM LEVEL; Value: 9.1; Range: 8.8-10.2; Units: MG/DL; Status: F Test Note: ; Units are mL/min/1.73 m2 Chronic Kidney Disease Staging per NKF: Stage I & II GFR >=60 Normal to Mildly Decreased Stage III GFR 30-59 Moderately Decreased Stage IV GFR 15-29 Severely Decreased Stage V GFR <15 Very Little GFR Left ESRD GFR <15 on [employer] Lab Order: Liver Profile; [facility] 09/21/16 22:54 Test: AST/SGOT; Value: 19; Range: 15-37; Units: U/L; Status: F Test: ALT/SGPT; Value: 23; Range: 12-78; Units: U/L; Status: F Test: ALKALINE PHOSPHATASE; Value: 128; Range: 45-117; Abnormal: Above high normal; Units: U/L; Status: F Test: BILIRUBIN,TOTAL; Value: 0.5; Range: 0.2-1.0; Units: MG/DL; Status: F Test: BILIRUBIN,DIRECT; Value: 0.1; Range: 0.0-0.2; Units: MG/DL; Status: F Test: TOTAL PROTEIN; Value: 7.7; Range: 6.4-8.2; Units: GM/DL; Status: F Test: ALBUMIN; Value: 3.2; Range: 3.2-5.2; Units: GM/DL; Status: F Test: ALBUMIN/GLOBULIN RATIO; Value: 0.71; Range: 1.00-1.93; Abnormal: Below low normal; Status: F Lab Order: Amylase; [facility] 09/21/16 22:54 Test: AMYLASE; Value: 42; Range: 25-115; Units: U/L; Status: F Lab Order: Lipase; [facility] 09/21/16 22:54 Test: LIPASE; Value: 71; Range: 73-393; Abnormal: Below low normal; Units: U/L; Status: F Lab Order: Pt & Aptt; [facility] 09/21/16 22:54 Test: PROTHROMBIN TIME; Value: 21.4; Range: 12.3-14.5; Abnormal: Above high normal; Units: SECONDS; Status: F Test: INR; Value: 1.85; Status: F Test: PARTIAL THROMBOPLASTIN TIME; Value: 46.2; Range: 26.6-37.1; Abnormal: Above high normal; Units: SECONDS; Status: F Test Note: ; THERAPUTIC HUMAN INR VALUES INDICATIONS NORMAL RANGES PROPHYLAXIS/TREATMENT OF: VENOUS THROMBOSIS 2.0-3.0 PULMONARY EMBOLISM 2.0-3.0 PREVENTION OF SYSTEMIC EMBOLISM FROM: TISSUE HEART VALVES 2.0-3.0 ACUTE MYOCARDIAL INFARCTION 2.0-3.0 VALVULAR HEART DISEASE 2.0-3.0 ATRIAL FIBRILLATION 2.0-3.0 MECHANICAL VALVES(HIGH RISK) 2.5-3.5 RECURRENT MYOCARDIAL INFARCTION 2.5-3.5 Lab Order: -Arterial Blood Gas; 09/22/16 01:29 Test: ABG pH (ARTERIAL); Value: 7.470; Range: 7.350-7.450; Abnormal: Above high normal; Units: UNITS; Status: F Test: ABG PARTIAL PRESSURE CO2; Value: 45.8; Range: 35.0-45.0; Abnormal: Above high normal; Units: mmHg; Status: F Test: ABG PARTIAL PRESSURE O2; Value: 58.2; Range: 75.0-100.0; Abnormal: Below low normal; Units: mmHg; Status: F Test: ABG TOTAL CO2; Value: 34.0; Range: 23.0-31.0; Abnormal: Above high normal; Units: MEQ/L; Status: F Test: ABG HCO3; Value: 32.6; Range: 22.0-26.0; Abnormal: Above high normal; Units: MEQ/L; Status: F Test: ABG BASE EXCESS; Value: 7.9; Range: -2.0-2.0; Abnormal: Above high normal; Status: F Test: ABG STANDARD HCO3; Value: 31.5; Range: 22.0-26.0; Abnormal: Above high normal; Units: MEQ/L; Status: F Test: ABG O2 SATURATION; Value: 89.9; Range: 95.0-99.0; Abnormal: Below low normal; Units: %; Status: F Test: ABG DEVICE; Value: NASAL DEANNA; Status: F Lab Order: CARDIAC MARKER PANEL; [facility]09/21/16 22:54 Test: CPK CREATINE PHOSPHOKINASE; Value: 63; Range: 39-308; Units: U/L; Status: F Test: CK-MB VALUE MASS; Value: 2.0; Range: 0.0-3.6; Units: NG/ML; Status: F Test: MB/CK RELATIVE INDEX; Value: 3.17; Range: < OR =4; Status: F Test: TROPONIN I; Value: < 0.02; Range: < 0.10; Units: NG/ML; Status: F Test Note: ; DIAGNOSIS CRITERIA MMB ng/ml Relative Index (RI) NON-AMI < or = 5 N/A NAPIER ZONE > 5 < or = 4 AMI > 5 > 4 Lab Order: MAGNESIUM LEVEL; SPEC'M 09/21/16 22:54 Test: MAGNESIUM LEVEL; Value: 1.6; Range: 1.8-2.4; Abnormal: Below low normal; Units: MG/DL; Status: F Radiology Order: CT ABD & PELVIS: IV Contrast Only Test: CT ABD & PELVIS: IV Contrast Only REASON FOR EXAMINATION: Abdomen Pain; ; CT of the abdomen and pelvis with contrast; Clinical statement: Pain.; Technique: Multiple axial CT images were obtained from the base of the lungs to the floor of the pelv; is utilizing 5 mm axial slices after administration of nonionic intravenous contrast. Coronal and sag; ittal reconstructions were also obtained.; No comparison is available.; Findings:; Chest: There is a small right-sided pleural effusion with right lower lobe infiltrate. There is also; a small reticulonodular infiltrate lingula of the left lung.; Abdomen: The kidneys are normal in size bilaterally. There is no evidence of hydronephrosis or nephro; lithiasis. The liver, spleen, pancreas, gallbladder and right adrenal gland are unremarkable. There i; s a low attenuation nodule in the left adrenal measuring 2.5 x 1.5 cm. The aorta demonstrates normal; caliber and contour. There is no abdominal lymphadenopathy or ascites.; Pelvis: The bowel is unremarkable, with no obstructive or inflammatory changes. The appendix is gaston; l. The urinary bladder is within normal limits. There is no pelvic lymphadenopathy or ascites. The ot; her pelvic structures appear unremarkable.; Bones: There are no suspicious osseous abnormalities seen. Severe multilevel degenerative disc diseas; e is seen throughout the lower thoracic and lumbar spine, with sclerosis and severe disc osteophyte c; omplexes. There is an 8mm retrolisthesis of L3 upon L4. There is a 5 mm retrolisthesis of L4 upon L5.; There is a 7 mm anterior spondylolisthesis of L5 upon S1. Moderately severe central canal stenosis i; s noted at L3/L4 and L2/L3. Severe bilateral neural foraminal narrowing is noted at these levels as w; ell.; Impression:; 1. No acute findings to explain the patient's pain.; 2. No obstructive or inflammatory bowel changes.; 3. Severe multilevel degenerative disc disease with disc osteophyte complexes as described. This caus; es central canal stenosis at L3/L4 and L2/L3. There is grade 1 spondylolisthesis noted at L3/L4, L4/L; 5, and L5/S1. No acute fractures are identified.; 4. Benign left adrenal adenoma.; ; Radiology Order: CT Chest Without Contrast Test: CT Chest Without Contrast REASON FOR EXAMINATION: Abdomen Pain; ; CT of the chest without contrast; Clinical statement: Shortness of breath. Previous right lower lobe consolidation.; Technique: Multiple axial CT images were obtained with 5 mm cuts through the chest without administra; tion of contrast. Coronal and sagittal reconstructions were also obtained.; No comparison is available.; Findings: There is extensive adenopathy. A precarinal lymph node measures 2.7 x 2.1 cm. Large amount; of right hilar soft tissue is noted, suspected to represent adenopathy. The area measures 6.4 x 3.4 c; m. Soft tissue in the subcarinal region measures 6.3 x 4.0 cm. The visualized portions of the thyroid; gland is unremarkable. There mild emphysematous changes bilaterally, predominately in the upper lobe; s. Bronchiectasis is seen in the right middle lobe. There are several nodules demonstrated in the rig; ht middle and right lower lobes, measuring up to 11 mm in diameter. Smaller nodules are seen in the l; eft lower lobe measuring up to 6 mm in diameter. There is a small right lower lobe infiltrate and ple; ural effusion. There is also a small left lower lobe infiltrate. Limited imaging of the upper abdomen; does not demonstrate any acute abnormalities. There are no suspicious osseous lesions.; Impression:; 1. Right lower lobe infiltrate and small right-sided pleural effusion. Smaller left lower lobe infilt; rate also noted.; 2. Bilateral upper lobe emphysema. Bronchiectasis in the right middle lobe.; 3. Numerous pulmonary nodules within the lungs bilaterally measuring up to 11 mm in diameter. By Criss drummond Society protocol recommendations, a follow-up CT in 3, 9, and 24 months is suggested. Dynamic; contrast enhanced CT/PET scan or biopsy should also be considered.; 4. Extensive mediastinal and right hilar adenopathy. Biopsy should be considered.; ; Outcome: 01:56 Decision to Hospitalize by Provider. cs11 03:24 Discharge Assessment: Patient awake, alert and oriented x 3. No cognitive and/or ko2 functional deficits noted. Patient verbalized understanding of disposition instructions. patient administered narcotics - no. The following High Risk Discharge criteria are identified: None. Admitted to Floor accompanied by tech, via stretcher, with chart. Condition: stable. CT Study completed. Property :Personal belongings accompany Pt. 04:01 Admitted to Floor accompanied by tech, via stretcher, with chart. jul 04:04 Patient left the ED. jul Signatures: Dispatcher [employer] EDMS Debi Rodrigues, Marina George RN,RT RT dk Felton Dyson, Silk [employer]inter Unit ml3 Shauna Cowart,RT RT nk1 Thu KebedeRN RN lf1 Sarika, Brielle, LACE FINISHER LACE FINISHER ar3 Lia Kim, LACE FINISHER LACE FINISHER Tien Lemus, DO DO cs11 Annette Morocho RN RN ko2 Gordy Diaz,Mariela Watters RN, RN RN nn1 Misty Worley, Reg Reg hs2 Melissa Lozano, LACE FINISHER LACE FINISHER cln Rafaela Evans lr2 Chart Complete MTDD
--- NOTE | 2016-09-24 05:05 | EDDOCDS ---
Physician Documentation [facility] Name: Stalin Boateng Age: 71 yrs Sex: Male : 1945 Arrival Date: 09/21/2016 Time: 21:32 Bed 15 Private MD: Ayse Choudhary A Disposition: 09/22/16 01:56 Hospitalization ordered by Vera Thomas for Inpatient Admission. Preliminary diagnosis are Pneumonia in diseases classified elsewhere, Hypoxemia. - Bed requested for 5 Chaney. - Status is Inpatient Admission. radha - Condition is Stable. - Problem is new. - Symptoms have improved. Historical: - Allergies: Xareltopain and weakness; pardaxaepigastric pain; Eliquisinsomnia; - Home Meds: 1. Coumadin 5 mg Oral tab 1 tab once daily adjusted based on INR 2. Fish Oil 1,000 mg Oral cap twice a day (Last dose: 09/21/2016 18:00) 3. ranitidine HCl 150 mg Oral cap 1 cap 2 times per day (Last dose: 09/21/2016 18:00) 4. furosemide 40 mg Oral tab 1 tab once daily (Last dose: 09/21/2016 15:00) 5. atenolol 25 mg Oral tab 1 tab once daily (Last dose: 09/21/2016 18:00) 6. guaifenesin 1,200 mg Oral Tb12 (Last dose: 09/21/2016 18:00) 7. tamsulosin 0.4 mg oral cp24 1 cap once daily (Last dose: 09/21/2016 18:00) 8. Iron CR 65 mg Oral 9. Advair Diskus 250-50 mcg/dose Inhl dsdv 1 puff 2 times per day 10. Spiriva with HandiHaler 18 mcg Inhl CpDv 1 cap once daily 11. ventolin inhaler - PMHx: Hypertension; COPD; afib; GERD; - PSHx: left total knee; right knee scope; Carpal Tunnel Repair- Bilateral; left ulnar nerve transposition; - Social history: Smoking status: Patient uses tobacco products, current every day smoker. No barriers to communication noted, The patient speaks fluent Lebanese, Speaks appropriately for age, Preferred Language: Lebanese. - Family history: Not pertinent. - : The pt / caregiver states he / she is on anticoagulants: coumadin. Home medication list is obtained from pill bottles. - Exposure Risk Screening:: None identified. Vital Signs: 09/21 21:33 BP 132 / 68; Pulse 78; Resp 19; Temp 97.8(O); Pulse Ox 95% on R/A; Weight 84.82 kg / lr2 187 lbs (R); Height 5 ft. 11 in. (180.34 cm); Pain 1010; 09/22 01:10 BP 118 / 67; Pulse 79; Resp 18; Temp 96.1; Pulse Ox 93% on R/A; mgs 02:41 BP 118 / 67 RA Sitting (auto/reg); Pulse 91 MON; Resp 22 S; Temp 97.0(O); Pulse Ox 91% cln on R/A; Pain 0/10; 03:21 BP 120 / 69; Pulse 90; Resp 22; Temp 97.2; Pulse Ox 93% ; ko2 09/21 21:33 Body Mass Index 26.08 (84.82 kg, 180.34 cm) lr2 MDM: 09/21 22:41 IV Saline Lock ordered. cs11 22:41 NS 0.9% 500 ml IV at bolus once ordered. cs11 22:42 Dilaudid - HYDROmorphone 0.5 mg IVP once ordered. cs11 22:42 -Blood Culture (Adults Only), peripheral from different site, or from device/port/PICC cs11 etc. if present ordered. 22:43 CBC with Diff Ordered. EDMS 22:43 MED Profile Ordered. EDMS 22:43 Liver Profile Ordered. EDMS 22:43 Amylase Ordered. EDMS 22:43 Lipase Ordered. EDMS 22:43 Urinalysis Ordered. EDMS 22:43 Pt & Aptt Ordered. EDMS 22:43 -Blood Culture Ordered. EDMS 22:43 Urine Culture Ordered. EDMS 22:43 Chest, 1 View Ordered. EDMS 22:48 -Blood Culture (Adults Only), peripheral from different site, or from device/port/PICC ml3 etc. if present complete. 22:50 BLOOD CULTURES Ordered. EDMS 23:36 Dilaudid - HYDROmorphone 0.5 mg IVP once ordered. cs11 23:36 CBC with Diff Reviewed. cs11 23:36 MED Profile Reviewed. cs11 23:36 Liver Profile Reviewed. cs11 23:36 Lipase Reviewed. cs11 23:36 Pt & Aptt Reviewed. cs11 23:36 Amylase Reviewed. cs11 23:37 Potassium Chloride Extended Release Tablet 20 mEq PO once ordered. cs11 23:37 NS 0.9% 500 ml IV at bolus once ordered. cs11 23:38 CT ABD & PELVIS: IV Contrast Only Ordered. EDMS 23:43 Financial registration complete. hs2 09/22 00:41 [facility] Payment Agreement was scanned into [employer] and attached to record. hs2 01:02 Call Respiratory ordered. cs11 01:03 -Arterial Blood Gas Ordered. EDMS 01:06 Call Respiratory complete. mgs 01:06 CT Chest Without Contrast Ordered. EDMS 01:08 cefUROXime 1.5 grams IV at calculated rate once over 30 mins; dilute in 50mL of NS or cs11 D5W ordered. 01:09 azithromycin 500 mg IVPB once over 1 hrs; dilute in 250mL of D5W or NS ordered. cs11 01:09 ketorolac 30 mg IVP once ordered. cs11 01:33 CT ABD & PELVIS: IV Contrast Only Reviewed. cs11 01:44 -Arterial Blood Gas Reviewed. cs11 01:46 BED REQUEST+ADM ordered. EDMS 01:59 LEGIONELLA ANTIGEN URINE Ordered. EDMS 01:59 URINE STREP PNEUMONIAE ANTIGEN Ordered. EDMS 01:59 RESPIRATORY PANEL Ordered. EDMS 01:59 MRSA SCREEN Ordered. EDMS 02:00 SPUTUM CULTURE AND GRAM STAIN Ordered. EDMS 02:00 PHYSICAL THERAPY EVAL & TREAT ordered. EDMS 02:01 Admission / Observation Status ordered. EDMS 02:01 LOW FAT LOW CHOLESTEROL DIET ordered. EDMS 02:04 ELECTROCARDIOGRAM ADULT ordered. EDMS 02:05 THYROID STIMULATING HORMONE Ordered. EDMS 02:05 CARDIAC RISK PROFILE Ordered. EDMS 02:05 CBC WITH DIFFERENTIAL Ordered. EDMS 02:05 COMPLETE COMPHRENSIVE METABOLI Ordered. EDMS 02:49 solumedrol 125 mg IV at bolus once ordered. mgs 02:49 Levalbuterol 1.25 mg Nebulizer once ordered. mgs 02:49 Call Respiratory ordered. mgs 02:50 Call Respiratory complete. mgs 02:54 Warfarin 5 mg PO once ordered. mgs 02:55 Written Provider Order was scanned into [employer] and attached to record. ml3 03:04 PROTHROMBIN TIME PROFILE\E\INR Ordered. EDMS Administered Medications: 09/21 23:14 Drug: NS 0.9% 500 ml [sodium chloride 0.9 % intravenous solution] Route: IV; Rate: mgs bolus; Site: left antecubital; 09/22 03:22 Follow up: IV Status: Completed infusion; IV Intake: 500ml ko2 09/21 23:14 Drug: Dilaudid - HYDROmorphone 0.5 mg [hydromorphone 1 mg/mL injection syringe (0.5 mgs mL)] Route: IVP; Site: left antecubital; 23:50 Drug: Dilaudid - HYDROmorphone 0.5 mg [hydromorphone 1 mg/mL injection syringe (0.5 mgs mL)] Route: IVP; Site: right antecubital; 09/22 00:15 Follow up: Response: Pain is decreased mgs 00:15 Drug: NS 0.9% 500 ml [sodium chloride 0.9 % intravenous solution] Route: IV; Rate: mgs bolus; Site: left antecubital; 00:16 Drug: Potassium Chloride 20 mEq [potassium chloride ER 10 mEq tablet,extended release mgs (2 tabs)] Route: PO; 01:51 Drug: cefUROXime 1.5 grams [cefuroxime sodium 1.5 gram solution for injection] Route: mgs IV; Rate: calculated rate; Infused Over: 30 mins; Site: left antecubital; 03:20 Follow up: IV Status: Completed infusion; IV Intake: 50ml ko2 01:51 Drug: ketorolac 30 mg [ketorolac 30 mg/mL (1 mL) injection solution (1 mL)] Route: IVP; mgs Site: left antecubital; 03:05 Drug: solumedrol 125 mg Route: IV; Rate: bolus; Site: left antecubital; ko2 03:05 Drug: Warfarin 5 mg [warfarin 5 mg tablet (1 tabs)] Route: PO; ko2 03:08 Drug: Levalbuterol 1.25 mg [levalbuterol 1.25 mg/0.5 mL solution for nebulization (0.5 nk1 mL)] Route: Nebulizer; 03:14 Follow up: Response: Nebulizer completed nk1 03:14 CANCELLED (Duplicate Order): Levalbuterol 1.25 mg Nebulizer once nk1 03:20 Drug: azithromycin 500 mg [azithromycin 500 mg intravenous solution] Route: IVPB; ko2 Infused Over: 1 hrs; Site: left antecubital; Signatures: Dispatcher [employer] EDDebi Villagran RN RN jan Lopresti, Mary-Elizabeth, [employer] ml3 Thu Kebede RN RN lf1 Tien Martinez, DO cs11 Annette Morocho RN RN ko2 Gordy Diaz RN RN mgs Misty Worley, Reg Reg hs2 Shauna Cowart RT nk1 The chart was reviewed and I authenticate all verbal orders and agree with the evaluation and treatment provided.Corrections: (The following items were deleted from the chart) 02:13 02:05 MAGNESIUM LEVEL ordered. EDMS EDMS 02:14 02:05 CARDIAC MARKER PANEL ordered. EDMS EDMS 03:14 02:50 Levalbuterol 1.25 mg Nebulizer once ordered. mgs nk1 Attachments: 00:41 [facility] [place] Payment Agreement hs2 02:55 Written Provider Order ml3 Chart Complete [facility]
--- NOTE | 2016-09-24 09:13 | NOCOX ---
DATE OF PROCEDURE: 09/22/2016 to 09/23/2016 ORDERED BY: Dr. Garcia The study is performed on room air, then 2 liters and then back on room air. The patient was awake for much of the study. Baseline tracing shows marked variability. Oxygen saturations appear more reasonable when on 2 liters nasal cannula, but again there is a wandering baseline and underlying primary obstructive sleep apnea cannot be ruled out on the basis of the above. IMPRESSION: Abnormal nocturnal oximetry. Will acquire further clinical correlation.
[2016-09-24] MEDS ORDERED: PPD DOCUMENTATION ENTRY MISC XX SCH (10:00)
== END 2016-09-23 14:15 | disposition home or self-care (01) | DRG 190 ==
LOC: M ED 21:32 → M ED INP 09-22 02:06 → M MS5PR 09-22 04:15
PROVIDERS: ADMIT General Practice; ATTEND Internal Medicine
DX: J44.1 Chronic obstructive pulmonary disease with (acute) exacerbation (principal); J18.9 Pneumonia, unspecified organism; J90 Pleural effusion, not elsewhere classified; R91.8 Other nonspecific abnormal finding of lung field; I48.91 Unspecified atrial fibrillation; I10 Essential (primary) hypertension; R59.0 Localized enlarged lymph nodes; E66.3 Overweight; G47.33 Obstructive sleep apnea (adult) (pediatric); K21.9 Gastro-esophageal reflux disease without esophagitis; E78.5 Hyperlipidemia, unspecified; F17.210 Nicotine dependence, cigarettes, uncomplicated; Z79.899 Other long term (current) drug therapy; Z96.652 Presence of left artificial knee joint; Z88.8 Allergy status to other drugs, medicaments and biological substances; Z79.01 Long term (current) use of anticoagulants

== ENCOUNTER 2016-10-09 11:36 | Inpatient (IN) | payer MEDICARE ==
[~2016-10-09] VITALS: Ht 180.3 cm; Wt 85.3 kg
[~2016-10-09 11:36] MED LIST changes: +ADV250INH INH; +ALBU17IN INH; +COUM1TAB17 PO; +FISH1000 PO; +FLOM5CAP PO; +FURO40TA2 PO; +GUAI1200 PO; +LEVA750T PO; +PRED10TA FT; +SPIR1CAP INH; +WARF-22 PO
[2016-10-09] MEDS ORDERED: methylPREDNISolone INJ 125 MG/2 ML VIAL (J2930) IV ONE (17:15)
[2016-10-09] MEDS: IPRATROPIUM 0.5MG/ALBUTEROL 2.5MG INH SOL UD 3ML (DUONEB)(J7620) NEB PRN ×2 (17:34→18:09)
[2016-10-09 17:36] LABS: ABG BASE EXCESS 4.5 (-2.0-2.0); ABG PARTIAL PRESSURE CO2 42.9 mmHg (35.0-45.0); ABG PARTIAL PRESSURE O2 59.6 mmHg (75.0-100.0); ABG STANDARD HCO3 28.3 MEQ/L (22.0-26.0); ABG TOTAL CO2 30.3 MEQ/L (23.0-31.0); ABG pH (ARTERIAL) 7.448 UNITS (7.350-7.450)
[2016-10-09 17:39] LABS: BASO % 0.1 % (0.0-1.0); EOS % 0.6 % (0.0-3.0); LARGE UNSTAINED CELL % 0.3 % (0.0-4.0); LYMPH # 0.3 K/mm3 (1.5-4.5); MEAN CORPUSCULAR HGB CONC 33.2 g/dl (32.0-36.5); MEAN CORPUSCULAR VOLUME 87.3 fl (80.0-96.0); MONO # 0.1 K/mm3 (0.0-0.8); NEUTROPHILS # 7.8 K/mm3 (1.8-7.7); NEUTROPHILS % 94.9 % (36.0-66.0); PLATELET COUNT, AUTOMATED 285 k/mm3 (150-450); RED CELL DISTRIBUTION WIDTH 13.6 % (11.5-14.5); WHITE BLOOD COUNT 8.2 K/mm3 (4.0-10.0)
[2016-10-09 17:57] LABS: ANION GAP 10 MEQ/L (8-16); BLOOD UREA NITROGEN 17 MG/DL (7-18); CALCIUM LEVEL 8.4 MG/DL (8.8-10.2); CARBON DIOXIDE LEVEL 29 MEQ/L (21-32); CHLORIDE LEVEL 95 MEQ/L (98-107); CREATININE FOR GFR 0.68 MG/DL (0.70-1.30); GLOMERULAR FILTRATION RATE > 60.0 (>42); GLUCOSE, FASTING 229 MG/DL (83-110); POTASSIUM SERUM 4.2 MEQ/L (3.5-5.1); SODIUM LEVEL 134 MEQ/L (136-145)
--- NOTE | 2016-10-09 19:01 | REP ---
Chest x-ray: Two views. History: Dyspnea and cough. Comparison chest x-ray September 21, 2016. Findings: The right hemidiaphragm is obscured. There is infiltrate and possibly right pleural effusion extensively opacifying the lower half of the right hemithorax. Interstitial markings are increased diffusely as before. There is fullness in the mediastinal contour. Fullness is seen in the right hilus. Question adenopathy or mass lesion. I observed that CT study from September 22, 2016 did show mediastinal and right hilar lymphadenopathy. Impression: There is a large infiltrate right lower lobe, question right pleural effusion obscuring the right hemidiaphragm. Progressive fullness right hilus and mediastinum. Interstitial markings are increased in the left base. Signed by Everardo Acevedo MD 10/09/2016 07:03 P
--- NOTE | 2016-10-09 20:27 | REP ---
CT study of the chest without contrast: History: Effusion. Comparison chest CT study September 22, 2016. Comparison is made with today's chest x-ray. CT findings: A small to moderate right pleural effusion is again noted. This has increased somewhat since the September 22, 2016 prior study. There is atelectasis and consolidation in the right middle lobe. This is a new finding compared with the prior CT. The air column in the right middle lobe bronchus terminates at the infrahilar level consistent with mucous plugging or neoplastic compression. There is some increase in consolidation in a peribronchovascular distribution in the right lower lobe compared to the prior study. Multiple noncalcified pulmonary nodules are noted bilaterally. These are essentially unchanged from the comparison study. There is bulky right hilar, subcarinal, and pretracheal lymphadenopathy suggesting malignancy. No axillary or supraclavicular adenopathy is appreciated. No adrenal mass is seen. The visualized upper abdominal structures are otherwise unremarkable. There is some coronary and other vascular calcification. No bony destructive lesion is seen. Impression: 1. Fairly bulky right hilar and mediastinal lymphadenopathy is again noted. There is collapse and consolidation in the right middle lobe with amputation of the right middle lobe bronchial air column. This may reflect mucous plugging or extrinsic compression. There is also some increase in consolidation in the right lower lobe. 2. Small to moderate right pleural effusion. This has increased since the September 22, 2016 study. 3. Multiple scattered bilateral pulmonary nodules. These are essentially unchanged. The findings were reviewed at the workstation with Dr. Puga at the time of the study. Signed by Everardo Acevedo MD 10/10/2016 07:46 A
[2016-10-09] MEDS ORDERED: ONDANSETRON 4MG/2ML VIAL (J2405) IV PRN (20:30)
[2016-10-09] MEDS ORDERED: ALBUTEROL SULFATE 2.5 MG/0.5 ML INH NEB SOLN INH PRN (20:30)
--- NOTE | 2016-10-09 21:10 | HPE ---
DATE OF ADMISSION: 10/09/2016 This is a patient of Ayse Choudhary, Dr. Moreno, and Dr. Lacy. CHIEF COMPLAINT: Shortness of breath. SUMMARY OF PRESENTATION: This is a 71-year-old gentleman who was recently admitted and discharged from [facility] from 09/22 to 09/23. He was treated for pneumonia, discharged home with a short course of quinolones and tapering steroid. He has had increasing shortness of breath over the last few days. It sounds like he never returned to baseline after his last hospitalization. Two nights ago he did not sleep much at all. He has been suffering from orthopnea and paroxysmal nocturnal dyspnea. Last night he slept two hours, got up, and went to hang out in his heated garage and drank coffee. He was up from 11 until 2 a.m. he went back to sleep from 2 to 4. He awoke because he was wheezing quite harshly. He was really short of breath. At 9:30 today, he went to the [facility], was given oxygen, Solu-Medrol, and sent to the emergency department for evaluation. He has been exceeding short of breath with any exertion. He has had cough with sputum production which has been white like his chronic sputum production. It was previously greenish. He has had no blood. He has had no chest pain, no fever or chills. His , Snow, takes his weight and records it, as well as his blood pressure. His weight has been within five pounds, has been trending up and down. He has increasing ankle swelling. He has been taking his blood pressure twice a day, and at times his blood pressure has been low. During the course of his last evaluation, he was noted to have lymphadenopathy in his chest. He had to followup with Dr. Lacy for that. PAST MEDICAL HISTORY: Notable for hypertension, hyperlipidemia, chronic obstructive pulmonary disease (COPD), being overweight, obstructive sleep apnea, tobacco use, atrial fibrillation. PAST SURGICAL HISTORY: Notable for left total knee replacement, right knee arthroscopy, carpal tunnel repair bilaterally, left ulnar nerve transposition. ALLERGIES: The newer forms of anticoagulation including XARELTO and ELIQUIS. MEDICATIONS AT HOME: - albuterol as needed for shortness of breath - Advair 250/50 inhaled twice daily - Spiriva inhaled every evening - Coumadin - atenolol 25 mg in the evening - fish oil 2000 mg in the evening - Lasix 40 mg daily - guaifenesin ER 1200 mg in the evening - Zantac 300 mg in the evening REVIEW OF SYSTEMS: Notable for no headache, no visual changes, no runny nose or sore throat. No neck pain. Cough as described. No abdominal pain. No change in his bowel habits. He does have nocturia and he had been tried on Flomax. Apparently that had caused some low blood pressure. Otherwise, unremarkable. PHYSICAL EXAMINATION: VITAL SIGNS: Temperature 99.5, pulse 96, respiratory rate 22, blood pressure 120/69, 91% on two liters. GENERAL: He is awake, pleasantly conversant. Good historian. HEENT: Sinuses are nontender. Pupils equal, round, and reactive. Anicteric. Noninjected. He wears corrective lenses. Mucous membranes are moist. He is bearded. NECK: Supple. I am unable to appreciated jugular venous pulse (JVP) due to the fair. LUNGS: Breathing is symmetrically diminished with dullness to percussion in the right base. Decreased aeration throughout. No wheezes appreciated. HEART: Regular rate and rhythm. Normal S1, S2. Radial pulse is 2+ bilaterally. Capillary refill is less than two seconds. ABDOMEN: Soft, somewhat full, nontender. EXTREMITIES: There is 1 to 2+ bilateral lower extremity edema to the mid calf. Strength is symmetrical in the upper and lower extremities. NEUROLOGIC: Cranial nerves II through XII are grossly intact. PSYCHIATRIC: He has normal mood and affect. LABORATORY DATA: White cell count 8.2, hemoglobin 12.2, and platelets of 285. Sodium is 134, potassium 4.2, chloride 95, carbon dioxide 29, BUN 13, creatinine 0.68, glucose 229, calcium 8.4. BNP is 339. Blood gas is 7.44, 42, 59, 29. Oxygen saturation is 90%. IMAGING: CT of the chest results are pending. I did review with the radiologist. ASSESSMENT: This is a 71-year-old with increasing shortness of breath, status post recent hospital admission. Findings are concerning for the possibility of fluid overload on physical exam. The possibility of recurrent pneumonia is considered. On further review, I am concerned that this may represent advancement of an underlying oncologic process. The patient will require a two-midnight hospital stay for further diagnostic workup and treatment. PLAN: 1. Acute hypoxic respiratory failure. The patient requires supplemental oxygen. There may be an aspect of reactive airway disease, COPD to his presentation, as he is improved with the use of steroids and pulmonary toilet. We will discuss with the attending solar field installation crew member risks and benefits of any further workup while in the hospital. At this point, I do not believe there is any evidence of pneumonia based on normal sputum production, no fever or chills, and no elevated white cell count. 2. Cardiovascular. The patient has known atrial fibrillation. Rate appears controlled. Coumadin will be held pending further workup. Rate control with beta blockade will be continued. I will also give some intravenous (IV) Lasix as a trial to perhaps assist his breathing as his physical findings and story are possibly consistent with decompensated congestive heart failure. 3. The patient had suspected sleep apnea during his last stay. He has never had a sleep study. 4. The patient has been a smoker. Will offer a nicotine patch. 5. Deep venous thrombosis (DVT) prophylaxis will be his Coumadin, although that is being held. Will need to be reassessed.
[2016-10-09 21:25] VITALS: BP 129/83
[2016-10-09 21:29] LABS: ANION GAP 9 MEQ/L (8-16); BLOOD UREA NITROGEN 20 MG/DL (7-18); CALCIUM LEVEL 8.7 MG/DL (8.8-10.2); CARBON DIOXIDE LEVEL 31 MEQ/L (21-32); CHLORIDE LEVEL 92 MEQ/L (98-107); CREATININE FOR GFR 0.77 MG/DL (0.70-1.30); GLOMERULAR FILTRATION RATE > 60.0 (>42); GLUCOSE, FASTING 308 MG/DL (83-110); POTASSIUM SERUM 4.2 MEQ/L (3.5-5.1); SODIUM LEVEL 132 MEQ/L (136-145)
[2016-10-09 21:45] LABS: INR 1.74
[2016-10-09] MEDS ORDERED: SLF 3 ML SYR IV PRN (21:45)
[2016-10-09] MEDS: FUROSEMIDE 40 MG/4 ML VIAL (J1940) IV SCH (22:08)
[2016-10-09] MEDS: OMEGA-3 1050MG CAPSULE PO SCH (22:09)
[2016-10-09] MEDS: guaiFENesin ER 600 MG TAB PO SCH (22:09)
[2016-10-09] MEDS: FAMOTIDINE 20 MG TAB PO SCH (22:09)
[2016-10-09] MEDS: ATENOLOL 25 MG TAB PO SCH (22:09)
[2016-10-09] MEDS: SLF 3 ML SYR IV SCH (22:10)
[2016-10-09] MEDS: IPRATROPIUM 0.5MG/ALBUTEROL 2.5MG INH SOL UD 3ML (DUONEB)(J7620) NEB SCH (23:33)
[2016-10-10] VITALS (8 sets, daily range): BP systolic 113–140; BP diastolic 64–80; O2SAT 97
[2016-10-10] MEDS: methylPREDNISolone INJ 125 MG/2 ML VIAL (J2930) IV SCH ×2 (02:25→09:12)
[2016-10-10] MEDS: IPRATROPIUM 0.5MG/ALBUTEROL 2.5MG INH SOL UD 3ML (DUONEB)(J7620) NEB SCH ×6 (03:18→23:56)
[2016-10-10] MEDS: SLF 3 ML SYR IV SCH ×3 (05:21→20:53)
[2016-10-10 05:41] LABS: MEAN CORPUSCULAR HEMOGLOBIN 29.4 pg (27.0-33.0); MEAN CORPUSCULAR HGB CONC 33.2 g/dl (32.0-36.5); MEAN CORPUSCULAR VOLUME 88.4 fl (80.0-96.0); RED CELL DISTRIBUTION WIDTH 13.5 % (11.5-14.5); WHITE BLOOD COUNT 6.1 K/mm3 (4.0-10.0)
[2016-10-10 05:43] LABS: INR 1.66
[2016-10-10 05:46] LABS: ANION GAP 8 MEQ/L (8-16); BLOOD UREA NITROGEN 17 MG/DL (7-18); CALCIUM LEVEL 8.8 MG/DL (8.8-10.2); CARBON DIOXIDE LEVEL 32 MEQ/L (21-32); CHLORIDE LEVEL 95 MEQ/L (98-107); CREATININE FOR GFR 0.59 MG/DL (0.70-1.30); GLOMERULAR FILTRATION RATE > 60.0 (>42); GLUCOSE, FASTING 176 MG/DL (83-110); SODIUM LEVEL 135 MEQ/L (136-145)
[2016-10-10] MEDS: guaiFENesin ER 600 MG TAB PO SCH ×2 (08:05→20:51)
[2016-10-10] MEDS: FUROSEMIDE 40 MG/4 ML VIAL (J1940) IV SCH (08:05)
[2016-10-10] MEDS ORDERED: SODIUM BICARBONATE 8.4% INJ 50 ML SYRINGE XX ONE (10:45)
[2016-10-10 11:08] LABS: ANION GAP 13 MEQ/L (8-16); BLOOD UREA NITROGEN 20 MG/DL (7-18); CALCIUM LEVEL 8.5 MG/DL (8.8-10.2); CARBON DIOXIDE LEVEL 30 MEQ/L (21-32); CHLORIDE LEVEL 92 MEQ/L (98-107); CREATININE FOR GFR 0.92 MG/DL (0.70-1.30); GLUCOSE, FASTING 276 MG/DL (83-110); POTASSIUM SERUM 3.6 MEQ/L (3.5-5.1); SODIUM LEVEL 135 MEQ/L (136-145)
[2016-10-10 11:26] LABS: GLOMERULAR FILTRATION RATE > 60.0 (>42)
[2016-10-10 12:35] LABS: TOTAL PROTEIN 6.6 GM/DL (6.4-8.2)
--- NOTE | 2016-10-10 13:21 | REP ---
Portable chest x-ray: Single view. History: Status post drainage right effusion. Comparison chest x-ray October 09, 2016. Findings: There is mild improvement in the right lung base aeration. There is no evidence of pneumothorax. There is some discoid atelectasis and infiltrate persisting in the right base. Heart is not enlarged. Impression: Some improvement in aeration in the right base. No pneumothorax seen. Signed by Everardo Acevedo MD 10/10/2016 01:45 P
[2016-10-10 13:45] LABS: BF DIFF IF INDICATED? YES (NO); RBC PLEURAL FLUID < 10 (<10mm3 cells/uL); TNC PLEURAL FLUID 990 cells/uL (0-20)
[2016-10-10 13:47] LABS: LDH, BODY FLUID 481 U/L (NOT ESTABLISHED); TOTAL PROTEIN, BODY FLUID 3.6 G/DL (NOT ESTABLISHED)
[2016-10-10 14:16] LABS: CC BF DIFF EXAM CYTOCENTRIFUGE
[2016-10-10 15:25] LABS: ANION GAP 12 MEQ/L (8-16); BLOOD UREA NITROGEN 27 MG/DL (7-18); CALCIUM LEVEL 8.4 MG/DL (8.8-10.2); CARBON DIOXIDE LEVEL 31 MEQ/L (21-32); CHLORIDE LEVEL 94 MEQ/L (98-107); CREATININE FOR GFR 0.94 MG/DL (0.70-1.30); GLOMERULAR FILTRATION RATE > 60.0 (>42); GLUCOSE, FASTING 255 MG/DL (83-110); POTASSIUM SERUM 3.5 MEQ/L (3.5-5.1); SODIUM LEVEL 137 MEQ/L (136-145)
[2016-10-10] MEDS: WARFARIN SOD 3 MG TAB PO SCH (16:34)
--- NOTE | 2016-10-10 19:51 | ECGEPIP ---
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
[2016-10-10] MEDS: ATENOLOL 25 MG TAB PO SCH (20:51)
[2016-10-10] MEDS: FAMOTIDINE 20 MG TAB PO SCH (20:51)
[2016-10-10] MEDS: OMEGA-3 1050MG CAPSULE PO SCH (20:52)
[2016-10-10] MEDS: predniSONE 20 MG TAB PO SCH (20:53)
[2016-10-10 20:55] LABS: ANION GAP 10 MEQ/L (8-16); BLOOD UREA NITROGEN 28 MG/DL (7-18); CALCIUM LEVEL 8.6 MG/DL (8.8-10.2); CARBON DIOXIDE LEVEL 31 MEQ/L (21-32); CHLORIDE LEVEL 94 MEQ/L (98-107); CREATININE FOR GFR 0.88 MG/DL (0.70-1.30); GLOMERULAR FILTRATION RATE > 60.0 (>42); GLUCOSE, FASTING 220 MG/DL (83-110); POTASSIUM SERUM 3.6 MEQ/L (3.5-5.1); SODIUM LEVEL 135 MEQ/L (136-145)
[2016-10-11 04:10] VITALS: BP 106/67
[2016-10-11] MEDS: SLF 3 ML SYR IV SCH ×3 (04:17→20:30)
[2016-10-11] MEDS: IPRATROPIUM 0.5MG/ALBUTEROL 2.5MG INH SOL UD 3ML (DUONEB)(J7620) NEB SCH ×6 (04:29→23:08)
[2016-10-11 05:00] LABS: MEAN CORPUSCULAR HEMOGLOBIN 29.1 pg (27.0-33.0); MEAN CORPUSCULAR HGB CONC 32.3 g/dl (32.0-36.5); MEAN CORPUSCULAR VOLUME 90.1 fl (80.0-96.0); RED CELL DISTRIBUTION WIDTH 13.8 % (11.5-14.5); WHITE BLOOD COUNT 15.1 K/mm3 (4.0-10.0)
[2016-10-11 05:10] LABS: INR 1.61
[2016-10-11 05:18] LABS: ANION GAP 6 MEQ/L (8-16); BLOOD UREA NITROGEN 22 MG/DL (7-18); CALCIUM LEVEL 8.7 MG/DL (8.8-10.2); CARBON DIOXIDE LEVEL 35 MEQ/L (21-32); CHLORIDE LEVEL 96 MEQ/L (98-107); CREATININE FOR GFR 0.64 MG/DL (0.70-1.30); GLOMERULAR FILTRATION RATE > 60.0 (>42); GLUCOSE, FASTING 164 MG/DL (83-110); POTASSIUM SERUM 4.2 MEQ/L (3.5-5.1); SODIUM LEVEL 137 MEQ/L (136-145)
[2016-10-11 08:00] VITALS: BP 107/57
[2016-10-11] MEDS: guaiFENesin ER 600 MG TAB PO SCH ×2 (08:23→20:30)
[2016-10-11] MEDS: predniSONE 20 MG TAB PO SCH ×2 (08:23→20:30)
--- NOTE | 2016-10-11 09:28 | REP ---
Portable chest x-ray: Single view. History: Right middle lobe pneumonia. Comparison study October 10, 2016. Findings: There is diffuse interstitial infiltrate pattern in the right mid and lower lung field. There is some improvement in aeration in the right middle lobe distribution. Cardiomegaly is observed. Left lung is clear. Pleural angles are sharp on the left. The aorta somewhat tortuous. EKG electrodes are seen. Mediastinal and a right hilar fullness persists. Impression: Persistent infiltrate right lung. Some improvement in aeration right middle lobe. Signed by Everardo Acevedo MD 10/11/2016 09:54 A
[2016-10-11 12:00] VITALS: BP 147/71
[2016-10-11] MEDS: FUROSEMIDE 40 MG TAB PO SCH (13:26)
[2016-10-11 16:10] VITALS: BP 137/78
--- NOTE | 2016-10-11 16:17 | CR ---
DATE OF CONSULTATION: 10/10/2016 PULMONARY CONSULTATION: The patient is a 71-year-old male who was seen for evaluation of respiratory status in light of dyspnea, cough and abnormal x-ray findings. Admitted on 09/22 with symptoms of abdominal pain, he was found to have pneumonia and responded to treatment with antibiotics and steroids. He was well at discharge but shortly after discontinuation of steroids, his symptoms recurred. Progressive dyspnea and cough prompted his readmission to the hospital for recurrent disease. He has a past pulmonary history of 50 years of smoking. He smokes one pack of cigarettes per day. He has daily cough with sputum production and is short of breath with activity, but he finds it difficult to quantify this shortness of breath. He denies chest pain, has no history of recurring bronchopulmonary infections. 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 He has no recent significant foreign travel, owns no unusual pets, partakes no uncommon hobbies. He has never been exposed tuberculosis, never suffered a deep venous thrombosis (DVT) nor pulmonary embolism in the past. Prescriptions for Spiriva and Advair are used on a consistent basis prior to his admission to the hospital, but he feels little benefit with their use. He also has a short-acting beta agonist albuterol which helps him some. PAST MEDICAL HISTORY: His past medical history includes hypertension, atrial fibrillation diagnosed 2016. Carries a diagnosis of obstructive sleep apnea syndrome, but has not been evaluated. He has been treated for extremity edema. PAST SURGERIES: Include left knee replacement, right knee scope procedure, bilateral carpal tunnel procedures, left ulnar nerve release, and an extensive surgery to his right shoulder. MEDICATIONS: His medications prior to admission to the hospital include: - Ventolin HFA two puffs every four hours as needed - atenolol 25 mg daily - fish oil 2000 mg daily - Lasix 40 mg a day - guaifenesin 1200 mg at bedtime - ranitidine 300 mg in evening - Advair 250/50 twice a day - Spiriva 18 mcg daily - Coumadin 5 mg a day, dose adjusted for INR ALLERGIES: He has allergies to 1. APIXABAN 2. BLUE DYE 3. DABIGATRAN 4. RIVAROXABAN 5. YELLOW DYE REVIEW OF SYSTEMS: CONSTITUTIONAL: He notes no significant change in his appetite or weight recently. HEENT: He wears corrective lenses. There is no impairment of hearing, smell, taste. CARDIOVASCULAR: He denies palpitations. Has had extremity edema since the spring, requiring diuretic therapy. There is as no history of acute myocardial infarction. He has never had typical anginal-type chest pain, orthopnea or paroxysmal nocturnal dyspnea. PULMONARY: See above. Gastrointestinal (GI): There is a history of gas pains. He does not experience chronic nausea, vomiting, constipation, diarrhea. GENITOURINARY (): No frequency, dysuria, kidney stones are reported. ENDOCRINE: There is no history of diabetes mellitus or thyroid disease. HEMATOLOGIC: No easy bruising or bleeding is reported. He has never received blood transfusions. NEUROLOGIC: There is no history of stroke or seizure, tremulousness. MUSCULOSKELETAL: He does have joint pain and has had multiple joint procedures performed. There is no rheumatic disease reported. PHYSICAL EXAMINATION: GENERAL: On physical exam he is awake, alert and oriented. His affect and mood seem appropriate. Nutrition and hygiene are good. VITAL SIGNS: Temperature 95, pulse rate 88, respirations 19, blood pressure 140/75. HEENT: Oral and nasal mucosa are pink. His posterior pharynx is not erythematous. There is no stridor over the trachea. No adenopathy in the neck or supraclavicular regions palpable. Jugular veins are at the sternal angle. Carotid upstroke is brisk without bruit. There are no supraclavicular nodes. NECK: Neck is supple. No meningismus. HEART: Sounds are irregularly irregular with no appreciable murmur. Ventricular rate is controlled in the 70s. LUNGS: Breath sounds are coarse bilaterally with wheezes. Expiratory phase is prolonged. There is normal motion of the diaphragm on the left. Diaphragm motion is unable to be appreciated on the right. There is dullness to percussion from T6 down. No tactile fremitus. Chest is symmetric, increased in its AP diameter. Moves symmetrically without accessory muscle use at rest. ABDOMEN: Soft with intact bowel sounds are palpable mass organomegaly. EXTREMITIES: Cool, peripheral pulses are diminished but palpable and irregular. Nails show no clubbing or cyanosis. DIAGNOSTIC STUDIES: Extensive reduce made of his current and prior laboratory studies, as well as imaging studies revealing a significant right pleural effusion, increased on recent imaging when compared to August. CT image also shows extensive mediastinal and hilar adenopathy and consolidation of the right middle lobe. IMPRESSION: 1. Right pleural effusion - differential diagnosis includes infectious, malignant, or possibly related to congestive heart failure. 2. Mediastinal and hilar adenopathy with consolidation in the right middle lobe. Given the patient's extensive smoking history, concern exists for malignant disease. 3. Chronic obstructive pulmonary disease. This based on clinical grounds, symptoms and his 50+ pack-year active smoking history. 4. Atrial fibrillation rate controlled. 5. History of hypertension. 6. History and physical findings support degree of right heart failure. RECOMMENDATIONS: 1. Diagnostic and therapeutic pleural drainage would be prudent. The patient's INR is only minimally elevated and represents minimal risk at this point. Given his active symptoms and the concern for malignant disease in the chest we would proceed with pleural drainage. 2. Will arrange for re-imaging after the fluid is drained from his chest. 3. The patient will likely benefit from a more prolonged and slow taper of steroids as he appears to respond quite well to oral agents. 4. Further recommendations will be pending the results of the above. Thank you for allowing me consult in the care of this patient. If you have questions, please do not hesitate to contact me.
--- NOTE | 2016-10-11 17:04 | IPN ---
DATE: 10/10/2016 Mr. Boateng is feeling better today, less short of breath. No complaints of chest pain or discomfort. Later in the day he did have a thoracentesis done and he became even less short of breath. Temperature 95.1, pulse 88, respiratory rate 19, blood pressure 140/75, 93% on 2 liters. Intake and output (I O) notable for a negative fluid balance of -1200. Negative fluid status of -2660. He is awake, appropriately interactive. Pleasantly conversant. Mucous membranes are moist. Neck is supple. Breathing is symmetrically rested. Decreased aeration on the right. No wheezes. Heart is in regular rate and rhythm. Abdomen is soft, doughy, nontender. White cell count 6.1, hemoglobin 11.9. INR 1.66. BUN 20, creatinine 0.92. ASSESSMENT: This is a 71-year-old with increasing shortness of breath status post recent hospital admission. PLAN: 1. Patient has acute hypoxic respiratory failure, which is improving, still on supplemental oxygen. He has had his right-sided pleural cavity drained with much improvement. He has also been diuresed with some improvement as well. Lower extremity edema is resolved. Will discontinue Lasix for the rest of the day. 2. Patient also has atrial fibrillation. Rate is currently controlled, can restart Coumadin. 3. Patient had suspected sleep apnea during his last day. Never had a sleep study. 4. Patient continues to be a smoker. Declines nicotine patch. 5. Possibility of oncologic illness is high in the differential. Will await the cytology on the fluids today. 6. Deep venous thrombosis (DVT) prophylaxis will be Coumadin, which is restarted today. INR is not quite therapeutic.
[2016-10-11] MEDS: WARFARIN SOD 3 MG TAB PO SCH (17:20)
[2016-10-11] MEDS: FAMOTIDINE 20 MG TAB PO SCH (20:30)
[2016-10-11] MEDS: OMEGA-3 1050MG CAPSULE PO SCH (20:30)
[2016-10-11] MEDS: ATENOLOL 25 MG TAB PO SCH (20:31)
[2016-10-11 22:00] VITALS: BP 124/74
--- NOTE | 2016-10-12 02:11 | IPN ---
DATE: 10/11/2016 Mr. Boateng is feeling quite well today. He is anxious to go home, but agrees to the plan that it is better to workout his underlying diagnosis while in the hospital as he has been re-admitted, breathing more easily, not producing sputum. Has been out of bed. Temperature 98, pulse 92, recovery room 20, blood pressure 107/57, 98% on room air. Intake and output notable for a negative fluid balance of -1845. He is awake, alert, appropriately interactive, pleasant, easy conversant. Breathing is symmetrical, somewhat diminished throughout. I:E ratio is 1 to 3. No wheezes, rales or rhonchi. No accessory muscle use. Heart is in a regular rate and rhythm. No significant arrhythmia on monitor. Abdomen is soft. Active bowel sounds, nontender. White cell count is 15.1, hemoglobin is 11.6, INR 1.61, BUN 22, creatine 0.64. My assessment is as follows: This is a 71-year-old with increasing shortness of breath, status post recent hospital admission with likely underlying oncologic process. Plan is as follows: 1. The patient was admitted with acute hypoxic respiratory failure. Has improved markedly with steroids, diuresis and a therapeutic thoracentesis. 2. Cardiovascular. The patient has known atrial fibrillation, rate is currently controlled. Coumadin is restarted after his thoracentesis. 3. The patient has suspected underlying ontological process based on findings in the right chest, with cytology from pleural fluid. Consult as necessary. Consider bronchoscopy or other biopsy site should pleural cytology be unremarkable. 4. The patient had suspected sleep apnea during his last stay. The patient has had sleep study. 5. The patient has been a smoker, has declined nicotine patch. 6. Deep vein thrombosis (DVT) prophylaxis with Coumadin.
[2016-10-12] MEDS: IPRATROPIUM 0.5MG/ALBUTEROL 2.5MG INH SOL UD 3ML (DUONEB)(J7620) NEB SCH ×5 (03:58→20:50)
[2016-10-12] MEDS: SLF 3 ML SYR IV SCH ×3 (05:05→20:49)
[2016-10-12 06:00] VITALS: BP 128/60
[2016-10-12 06:41] LABS: MEAN CORPUSCULAR HEMOGLOBIN 29.5 pg (27.0-33.0); MEAN CORPUSCULAR HGB CONC 32.7 g/dl (32.0-36.5); MEAN CORPUSCULAR VOLUME 90.1 fl (80.0-96.0); RED CELL DISTRIBUTION WIDTH 13.6 % (11.5-14.5); WHITE BLOOD COUNT 12.7 K/mm3 (4.0-10.0)
[2016-10-12 06:47] LABS: INR 1.61
--- NOTE | 2016-10-12 07:11 | RO ---
DATE OF PROCEDURE: 10/10/2016 PREOPERATIVE DIAGNOSIS: Right pleural effusion. POSTOPERATIVE DIAGNOSIS: Right pleural effusion. PROCEDURE: Right tube thoracostomy. SURGEON: Mario Sanchez DO PORTFOLIO ASSISTANT: ANESTHESIA: DESCRIPTION OF PROCEDURE: The patient was seen and the procedure explained to the patient as were all possible complications pertaining thereto, including but not limited to bleeding, infection, medication reaction and lung collapse. An informed consent was obtained. The patient was placed in the seated upright position. Ultrasound was used to identify the fluid level between the 6th and 7th rib in the posterior axillary line. The area was prepped with Betadine, draped in sterile fashion. A 25-gauge needle was used to raise a skin wheal of 1% lidocaine buffered with bicarbonate. Thereafter, a 17-gauge introducer needle was placed in through the skin and into the pleural space. Free return of cloudy yellow fluid was appreciated. A vascular tip guidewire was advanced and the needle removed out through the skin. A small incision was made adjacent to the guidewire and a 14-hour [place] thoracostomy tube was placed over the wire and into the right pleural space without difficulty. The tube was connected to drainage system and 1400 mL of cloudy yellow fluid was drained without difficulty. When no further fluid could be obtained, the tube was removed. Sterile dressing was applied. The patient tolerated the procedure well, suffered no apparent complication and a post-procedural chest x-ray is pending.
[2016-10-12] MEDS: guaiFENesin ER 600 MG TAB PO SCH ×2 (08:18→20:49)
[2016-10-12] MEDS: predniSONE 20 MG TAB PO SCH (08:18)
[2016-10-12] MEDS: FUROSEMIDE 40 MG TAB PO SCH (08:18)
--- NOTE | 2016-10-12 09:04 | REP ---
Clinical: Acute pneumonia status post thoracentesis. Technique: PA and lateral. Comparison: 10/11/2016. Findings: Acute multifocal infiltrates (right greater left) and diffuse chronic changes are again noted and similar to prior examination. No obvious effusion. No definite pneumothorax. Mediastinum and cardiac silhouette are stable. Skeletal structures are intact. Impression: Acute multifocal infiltrates (right greater than left). No obvious residual effusion or pneumothorax. Signed by Kg Cruz MD 10/12/2016 08:55 A
--- NOTE | 2016-10-12 10:43 | IPN ---
DATE OF SERVICE: 10/12/2016 Mr. Boateng is feeling well today. He was not up and walking around yesterday but plans to get up and walk around the hallway today. Breathing is much improved. No complaints of chest pain or discomfort. Still is coughing but certainly not as much. He has been passing his bowels and eating well. Temperature is 97.1, pulse 84, respiratory rate 18, blood pressure 128/60, 92% on room air. Intake and output (I and O) notable for a positive fluid balance of 1400. There is no bowel movement recorded, but the patient has previously reported a bowel movement. Mucous membranes moist. Neck supple. Breathing is symmetrical, diminished more on the right than the left. No wheezes, rales, or rhonchi. I:E ratio is 1:4. Heart is in a regular rhythm. Distal pulses at the radius 2+. Capillary refill is less than 2 seconds. Abdomen is soft. Active bowel sounds. Nontender. White cell count 12.7, hemoglobin 12.1, platelets of 314. INR is 1.6. BUN 22, creatine 0.64. Chest x-ray done today shows multifocal infiltrates, no residual effusion, and pneumothorax. My assessment is as follows: This is a 71-year-old with increasing shortness of breath, status post recent hospital admission, with likely underlying oncologic process. The plan is as follows: 1. The patient was admitted with acute hypoxic respiratory failure. This has improved markedly with steroids, diuresis, and a therapeutic thoracentesis. I discussed this case in person with Dr. Sanchez today. Will wait for cytology and consider bronchoscopy as needed. 2. Cardiovascular. The patient has known atrial fibrillation. Rate is controlled. Coumadin dose will be increased today, as his international normalized ratio (INR) is still subtherapeutic. 3. The patient has suspected underlying oncologic process based on findings in the right chest. Cytology pending. 4. The patient had suspected sleep apnea during his last stay. 5. The patient has been a smoker. Has declined nicotine patch. 6. Will look to increase the patient's level of activity today and have him walk in the hallway. 7. Deep vein thrombosis (DVT) prophylaxis is currently Coumadin, the dose of which will be increased.
[2016-10-12 14:00] VITALS: BP 112/55
[2016-10-12] MEDS: WARFARIN SOD 7.5 MG TAB PO SCH (16:23)
[2016-10-12] MEDS: FAMOTIDINE 20 MG TAB PO SCH (20:48)
[2016-10-12] MEDS: ATENOLOL 25 MG TAB PO SCH (20:48)
[2016-10-12] MEDS: OMEGA-3 1050MG CAPSULE PO SCH (20:49)
[2016-10-12 22:00] VITALS: BP 145/69
[2016-10-12] MEDS: RAMELTEON 8 MG TAB (ROZEREM) PO SCH (23:59)
[2016-10-13] MEDS: IPRATROPIUM 0.5MG/ALBUTEROL 2.5MG INH SOL UD 3ML (DUONEB)(J7620) NEB SCH ×7 (00:35→23:34)
--- NOTE | 2016-10-13 04:32 | IPN ---
DATE: 10/13/2016 TIME PATIENT WAS SEEN: 04:10 a.m. Medical team was emergently paged around 3:50 a.m. regarding patient having chest pain, which was pressure-like. Patient was also having trouble breathing. Therefore, an EKG and cardiac markers were emergently ordered. At the time of interview, the patient admits to pressure-like chest pain, that he states he never had in the past. He apparently also had trouble breathing from his chronic obstructive pulmonary disease (COPD) exacerbation. In addition, he stated that his chest pain does not seem to change with diet and it is different from when he has heartburn. In addition, his chest pain is constant and lasts a few hours. Per patient, it is not radiating, and does not seem to cause the trouble breathing worse. Otherwise, the EKG shows no new findings compared to his last EKG done on 10/09/2016, with atrial fibrillation and nonspecific ST-T wave abnormalities. At this point, we will continue to monitor and will followup with his cardiac markers. Patient has been discussed with attending doctor, Dr. Garcia. My preceptor for this patient encounter was Dr. Denise Garcia. The preceptor was physically present in the building during the encounter and was fully available as needed. All aspects of the patient interview, examination, medical decision making process, and medical care plan development were reviewed and approved by the preceptor. The preceptor is aware and concurs with the plan as stated in the body of this note and will attest to such by his co-signature.
[2016-10-13] MEDS: SLF 3 ML SYR IV SCH ×3 (05:03→20:38)
[2016-10-13 06:00] VITALS: BP 143/88
[2016-10-13 06:42] LABS: MEAN CORPUSCULAR HEMOGLOBIN 29.2 pg (27.0-33.0); MEAN CORPUSCULAR HGB CONC 32.6 g/dl (32.0-36.5); MEAN CORPUSCULAR VOLUME 89.3 fl (80.0-96.0); RED CELL DISTRIBUTION WIDTH 13.6 % (11.5-14.5); WHITE BLOOD COUNT 12.8 K/mm3 (4.0-10.0)
[2016-10-13 06:49] LABS: INR 1.69
[2016-10-13 06:53] LABS: ANION GAP 7 MEQ/L (8-16); BLOOD UREA NITROGEN 27 MG/DL (7-18); CALCIUM LEVEL 8.8 MG/DL (8.8-10.2); CARBON DIOXIDE LEVEL 32 MEQ/L (21-32); CHLORIDE LEVEL 98 MEQ/L (98-107); CREATININE FOR GFR 0.66 MG/DL (0.70-1.30); GLOMERULAR FILTRATION RATE > 60.0 (>42); GLUCOSE, FASTING 88 MG/DL (83-110); SODIUM LEVEL 137 MEQ/L (136-145)
--- NOTE | 2016-10-13 08:55 | IPNPDOC ---
Subjective Date Seen The patient was seen on 10/13/16. Subjective Chief Complaint/HPI The patient is a 71-year-old male admitted with a reason for visit of Hypoxia. General: Denies: Chills, Fatigue, Malaise, Night Sweats, Normal Appetite, Other Symptoms, ROS Unobtainable Constitutional: Denies: Chills, Fatigue, Fever, Lethargy, Malaise, Night Sweats , Other, Weakness, Weight Loss Eyes: Denies: Conjunctivae inflammation, Eyelid inflammation, Other, Pain, Redness, Vision change ENT: Denies: Dysphagia, Ear Pain, Epistaxis, Head Aches, Other Symptoms, Post Nasal Drip, Sinus Congestion, Sore Throat Skin: Denies: Breakdown, Bruising, Dry, Itching, Jaundice, Lesions, Nail Changes, Other, Rash Pulmonary: Reports: Cough, Dyspnea, Denies: Other Symptoms, Pleuritic Chest Pain Cardiovascular: Reports: Chest Pain, Denies: Edema, Lt Headedness, Orthopnea, Other Symptoms, Palpitations, Paroxysmal Noc. Dyspnea Gastrointestinal: Denies: Abdominal Pain, Constipation, Diarrhea, Hematochezia , Melena, Nausea, Other Symptoms, Vomiting Genitourinary: Denies: Dysuria, Frequency, Hematuria, Incontinence, Other Symptoms, Retention Objective Physical Examination General Exam: Positive: Alert, Cooperative, No Acute Distress Eye Exam: Positive: Conjunctiva & lids normal, EOMI, PERRLA, Negative: Sclera icteric ENT Exam: Positive: Atraumatic Neck Exam: Positive: Supple Chest Exam: Positive: Rales, Rhonchi Heart Exam: Positive: Rate Normal Abdomen Exam: Positive: Normal bowel sounds, Soft, Negative: Tenderness Extremity Exam: Negative: Edema Assessment /Plan Problems (1) Pleural effusion Status: Acute Response to Treatment: Improving Discussed With: Patient Problem Specific Plan: Consult Specialist, Monitor Clinically, Repeat Labs, Repeat Tests Problem Text: S/P thoracentesis. Repeat CXR. Cytology pending. Physical L>R, although CXR R>L, repeat CXR pending. (2) HTN (hypertension) Status: Chronic Discussed With: Patient Problem Specific Plan: Consult Specialist, Monitor Clinically Problem Text: Continue with lasix and atenolol. (3) Dyslipidemia Status: Chronic Problem Text: Continue with omega 3 supplementation. (4) COPD (chronic obstructive pulmonary disease) Status: Chronic Discussed With: Patient Problem Specific Plan: Monitor Clinically Problem Text: Continue with respiratory regimen. Will add IS, acpella. Continue mucolytics. (5) Obesity Status: Chronic Discussed With: Patient Problem Text: Further complicating factor to his medical care. (6) FEROZ (obstructive sleep apnea) Status: Chronic Discussed With: Patient Problem Specific Plan: Monitor Clinically (7) Nicotine abuse Status: Chronic Discussed With: Patient (8) Chronic atrial fibrillation Status: Chronic Discussed With: Patient Problem Text: Rate controlled, continue atenolol. A/C with coumadin - sub-therapeutic. Continue daily INR. (9) Hypoxia Status: Acute Discussed With: Patient Problem Specific Plan: Consult Specialist, Monitor Clinically, Repeat Labs Problem Text: Concerns for malignancy, cytology pending. Supplemental oxygen as needed. Titrate to 88-92. Discussed with pulmonology, assistance appreciated. (10) Chest pain Status: Acute Response to Treatment: Progressing Discussed With: Patient Problem Specific Plan: Monitor Clinically, Repeat Labs, Repeat Tests Problem Text: right sided chest pain last night, atypical for angina. improved. one set card markers negative, ECG non-specific changes. Serial troponins. Repeat ECG. Consider telemetry monitoring Plan/VTE VTE Prophylaxis Ordered?: Yes (warfarin) Plan Diet: Continue Current Respiratory: Wean Oxygen Diagnostics: Repeat Labs in AM, Xrays Anticipated Discharge: [facility] VS[facility]&O[facility] Vital Signs/I&O Vital Signs Date Time Temp Pulse Resp B/P Pulse Ox O2 Delivery O2 Flow Rate FiO2 10/13/16 08:00 Nasal Cannula 2.0 10/13/16 06:00 97.2 88 21 143/88 95 I&O- Last 24 Hours up to 6 AM 10/13/16 06:00 Intake Total 1020 ml Output Total 1375 ml Balance -355 ml Laboratory Data 24H LABS Laboratory Tests 2 10/13/16 03:51: Creatine Kinase MB 2.6, Creatine Kinase MB Relative Index 6.50H, Total Creatine Kinase 40, Troponin I 0.02 10/13/16 06:08: Anion Gap 7L, Blood Urea Nitrogen 27H, Creatinine 0.66L, Sodium Level 137, Potassium Level 4.0, Chloride Level 98, Carbon Dioxide Level 32, Calcium Level 8.8, Glomerular Filtration Rate > 60.0, Prothromb Time International Ratio 1.69 , Prothrombin Time 20.0H CBC/BMP Laboratory Tests 3/21/17 06:08 Calcium Level 8.8, Red Blood Count 4.04 L, Mean Corpuscular Volume 89.3, Mean Corpuscular Hemoglobin 29.2, Mean Corpuscular Hemoglobin Concent 32.6, Red Cell Distribution Width 13.6 Microbiology Microbiology 10/10/16 Acid Fast Stain, Received Pending 10/10/16 Mycobacterial Culture, Received Pending 10/10/16 Fungal Smear, Received Pending 10/10/16 Fungal Culture, Received Pending 10/10/16 Gram Stain - Final, Complete 10/10/16 Body Fluid Culture - Final, Complete CASPER MASON MD Oct 13, 2016 08:55
[2016-10-13] MEDS: guaiFENesin ER 600 MG TAB PO SCH ×2 (08:59→20:37)
[2016-10-13] MEDS: FUROSEMIDE 40 MG TAB PO SCH (09:01)
[2016-10-13] MEDS: predniSONE 20 MG TAB PO SCH (09:01)
--- NOTE | 2016-10-13 12:40 | REP ---
Clinical: Multifocal pneumonia for re-evaluation. Comparison: 10/12/2016. Findings: Bilateral multifocal infiltrates (right greater than left) and moderate right pleural effusion may be slightly increased when compared to prior examination. Mediastinum and cardiac silhouette stable. No new acute process identified. Impression: Right lower lobe infiltrates may be slightly improved compared to prior examination. Moderate right pleural effusion and left lower lobe atelectasis relatively stable. Signed by Kg Cruz MD 10/13/2016 12:31 P
[2016-10-13 14:00] VITALS: BP 115/61
[2016-10-13] MEDS: WARFARIN SOD 7.5 MG TAB PO SCH (16:54)
[2016-10-13] MEDS: OMEGA-3 1050MG CAPSULE PO SCH (20:37)
[2016-10-13] MEDS: FAMOTIDINE 20 MG TAB PO SCH (20:37)
[2016-10-13] MEDS: RAMELTEON 8 MG TAB (ROZEREM) PO SCH (20:37)
[2016-10-13] MEDS: ATENOLOL 25 MG TAB PO SCH (20:38)
[2016-10-13 22:00] VITALS: BP 130/67
--- NOTE | 2016-10-13 22:14 | ECGEPIP ---
Stationary ECG Study [facility] Test Date: 2016-10-13 Pat Name: JEANIE SANTOS Department: [facility] Room: [place] [id number] Gender: M [employer] Person: RUSTY COTTON PICKER : 1945 Requested By: HENOK SANDERS Order Number: [id number] Reading MD: Shailesh Moreno Measurements Intervals [place] Rate: 87 P: [place]: 0 QRS: 46 QRSD: 102 T: 31 QT: 353 QTc: 426 Interpretive Statements ATRIAL FIBRILLATION ABNORMAL RHYTHM ECG SIMILAR 10/09/16 Electronically Signed On 10-13-2016 22:13:52 EDT by Shailesh Moreno
[2016-10-14] MEDS: IPRATROPIUM 0.5MG/ALBUTEROL 2.5MG INH SOL UD 3ML (DUONEB)(J7620) NEB SCH ×5 (03:02→20:03)
[2016-10-14 06:00] VITALS: BP 111/72
[2016-10-14] MEDS: SLF 3 ML SYR IV SCH ×3 (06:36→20:43)
[2016-10-14 07:20] LABS: MEAN CORPUSCULAR HEMOGLOBIN 28.6 pg (27.0-33.0); MEAN CORPUSCULAR VOLUME 89.5 fl (80.0-96.0); RED CELL DISTRIBUTION WIDTH 13.5 % (11.5-14.5)
[2016-10-14 07:26] LABS: YEAST LIKE CELL URINE AUTO SMALL
[2016-10-14 07:27] LABS: INR 1.54
[2016-10-14 08:02] LABS: ANION GAP 5 MEQ/L (8-16); BLOOD UREA NITROGEN 25 MG/DL (7-18); CALCIUM LEVEL 8.9 MG/DL (8.8-10.2); CARBON DIOXIDE LEVEL 37 MEQ/L (21-32); CHLORIDE LEVEL 95 MEQ/L (98-107); CREATININE FOR GFR 0.63 MG/DL (0.70-1.30); GLOMERULAR FILTRATION RATE > 60.0 (>42); GLUCOSE, FASTING 89 MG/DL (83-110); POTASSIUM SERUM 4.3 MEQ/L (3.5-5.1); SODIUM LEVEL 137 MEQ/L (136-145)
[2016-10-14] MEDS: guaiFENesin ER 600 MG TAB PO SCH ×2 (08:48→20:43)
[2016-10-14] MEDS: predniSONE 20 MG TAB PO SCH (08:48)
[2016-10-14] MEDS: FUROSEMIDE 40 MG TAB PO SCH (08:48)
--- NOTE | 2016-10-14 09:27 | IPNPDOC ---
Subjective Date Seen The patient was seen on 10/14/16. Subjective Chief Complaint/HPI The patient is a 71-year-old male admitted with a reason for visit of Hypoxia. General: Denies: Chills, Fatigue, Malaise, Night Sweats, Normal Appetite, Other Symptoms, ROS Unobtainable Constitutional: Denies: Chills, Fatigue, Fever, Lethargy, Malaise, Night Sweats , Other, Weakness, Weight Loss Eyes: Denies: Conjunctivae inflammation, Eyelid inflammation, Other, Pain, Redness, Vision change ENT: Denies: Dysphagia, Ear Pain, Epistaxis, Head Aches, Other Symptoms, Post Nasal Drip, Sinus Congestion, Sore Throat Skin: Denies: Breakdown, Bruising, Dry, Itching, Jaundice, Lesions, Nail Changes, Other, Rash Pulmonary: Reports: Dyspnea, Denies: Cough, Other Symptoms, Pleuritic Chest Pain Cardiovascular: Denies: Chest Pain, Edema, Lt Headedness, Orthopnea, Other Symptoms, Palpitations, Paroxysmal Noc. Dyspnea Gastrointestinal: Denies: Abdominal Pain, Constipation, Diarrhea, Hematochezia , Melena, Nausea, Other Symptoms, Vomiting Genitourinary: Denies: Dysuria, Frequency, Hematuria, Incontinence, Other Symptoms, Retention Hematologic: Denies: Bleeding Excessively, Bruising, Enlarged Lymph Nodes, Other Hematologic, Petecchia, Purpura Objective Physical Examination General Exam: Positive: Alert, Cooperative, No Acute Distress Eye Exam: Positive: Conjunctiva & lids normal, EOMI, PERRLA, Negative: Sclera icteric ENT Exam: Positive: Atraumatic Neck Exam: Positive: Supple Chest Exam: Positive: Rales, Rhonchi Heart Exam: Positive: Rate Normal Abdomen Exam: Positive: Normal bowel sounds, Soft, Negative: Tenderness Extremity Exam: Negative: Edema Psych Exam: Positive: Oriented x 3 Assessment /Plan Problems (1) Adenocarcinoma Status: Acute Discussed With: Barber, Patient Problem Specific Plan: Consult Specialist, Monitor Clinically 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 Discussed with oncology and GI. Plan for EGD today. MRI brain to eval for further metastatic disease. (2) Pleural effusion Status: Acute Response to Treatment: Improving Discussed With: Patient Problem Specific Plan: Consult Specialist, Monitor Clinically, Repeat Labs, Repeat Tests Problem Text: S/P thoracentesis. Repeat CXR showed improvement yesterday. Cytology positive malignancy - adenoa CA with signet ring cells. (3) HTN (hypertension) Status: Chronic Discussed With: Patient Problem Specific Plan: Consult Specialist, Monitor Clinically Problem Text: Continue with lasix and atenolol. (4) Dyslipidemia Status: Chronic Problem Text: Continue with omega 3 supplementation. (5) COPD (chronic obstructive pulmonary disease) Status: Chronic Discussed With: Patient Problem Specific Plan: Monitor Clinically Problem Text: Continue with respiratory regimen. Will add IS, acpella. Continue mucolytics. (6) Obesity Status: Chronic Discussed With: Patient Problem Text: Further complicating factor to his medical care. (7) FEROZ (obstructive sleep apnea) Status: Chronic Discussed With: Patient Problem Specific Plan: Monitor Clinically (8) Nicotine abuse Status: Chronic Discussed With: Patient (9) Chronic atrial fibrillation Status: Chronic Discussed With: Patient Problem Text: Rate controlled, continue atenolol. A/C with coumadin - sub-therapeutic. Continue daily INR. (10) Hypoxia Status: Acute Discussed With: Patient Problem Specific Plan: Consult Specialist, Monitor Clinically, Repeat Labs Problem Text: Supplemental oxygen as needed. Titrate to 88-92. Discussed with pulmonology, assistance appreciated. (11) Chest pain Status: Acute Response to Treatment: Progressing Discussed With: Patient Problem Specific Plan: Monitor Clinically, Repeat Labs, Repeat Tests Problem Text: right sided chest pain last night, atypical for angina. improved. one set card markers negative, ECG non-specific changes. Serial troponins. Repeat ECG. Consider telemetry monitoring Plan/VTE VTE Prophylaxis Ordered?: Yes (warfarin) Plan Diet: Make NPO, Continue Current Respiratory: Wean Oxygen Diagnostics: Repeat Labs in AM, MRI, Other Diagnostics Anticipated Discharge: Home VS, I&O, 24H, Replaced By [facility] Vital Signs/I&O Vital Signs Date Time Temp Pulse Resp B/P Pulse Ox O2 Delivery O2 Flow Rate FiO2 10/14/16 06:00 98.0 84 19 111/72 95 Nasal Cannula 2.0 I&O- Last 24 Hours up to 6 AM 10/14/16 05:59 Intake Total 1290 ml Output Total 3225 ml Balance -1935 ml Laboratory Data 24H LABS Laboratory Tests 2 10/13/16 10:16: Creatine Kinase MB 2.3, Creatine Kinase MB Relative Index 6.76H, Total Creatine Kinase 34L, Troponin I < 0.02 10/13/16 16:12: Creatine Kinase MB 2.1, Creatine Kinase MB Relative Index 6.56H, Total Creatine Kinase 32L, Troponin I < 0.02 10/14/16 06:57: Anion Gap 5L, Blood Urea Nitrogen 25H, Creatinine 0.63L, Sodium Level 137, Potassium Level 4.3, Chloride Level 95L, Carbon Dioxide Level 37H, Calcium Level 8.9, Glomerular Filtration Rate > 60.0, Prothromb Time International Ratio 1.54, Prothrombin Time 18.6H 10/14/16 07:01: Urine Amorphous Sediment , Urine Appearance CLOUDYH, Urine Color REDH, Urine pH 6.0, Urine Specific Harriet 1.019, Urine Protein 2+H, Urine Glucose (UA) NEGATIVE, Urine Ketones NEGATIVE, Urine Urobilinogen 0.2, Urine Bilirubin NEGATIVE, Urine Leukocyte Esterase NEGATIVE, Urine Bacteria (Auto) NEGATIVE, Urine Blood 2+H, Urine Calcium Carbonate Cryst(Auto) , Urine Calcium Oxalate Cryst (Auto) , Urine Calcium Phosphate Sunita (Auto) , Urine Cellular Casts , Urine Cystine Crystals , Urine Granular Casts (Auto) , Urine Hyaline Casts (Auto ) 0, Urine Leucine Crystals , Urine Mucus (Auto) SMALL, Urine Nitrite NEGATIVE, Urine Oval Fat Bodies (Auto) , Urine RBC (Auto) TNTCH, Urine Renal Epithelial Cells , Urine Sperm (Auto) , Urine Squamous Epithelial Cells 2, Urine Transitional Epithelial Cells , Urine Trichomonas (Auto) , Urine Triple Phosphate Cryst (Auto) , Urine Tyrosine Crystals , Urine Uric Acid Crystals ( Auto) , Urine WBC (Auto) 23H, Urine Waxy Casts (Auto) , Urine Yeast-Like Cells ( Auto) SMALLH CBC/BMP Laboratory Tests 10/14/16 06:57 Calcium Level 8.9, Red Blood Count 3.95 L, Mean Corpuscular Volume 89.5, Mean Corpuscular Hemoglobin 28.6, Mean Corpuscular Hemoglobin Concent 32.0, Red Cell Distribution Width 13.5 Microbiology Microbiology 10/10/16 Acid Fast Stain, Received Pending 10/10/16 Mycobacterial Culture, Received Pending 10/10/16 Fungal Smear, Received Pending 10/10/16 Fungal Culture, Received Pending 10/10/16 Gram Stain - Final, Complete 10/10/16 Body Fluid Culture - Final, Complete CASPER MASON MD Oct 14, 2016 09:27
[2016-10-14 14:00] VITALS: BP 106/66
--- NOTE | 2016-10-14 16:22 | REP ---
MRI BRAIN WITHOUT AND WITH CONTRAST: HISTORY: Metastases. CONTRAST: ProHance 16 mL. A small area of increased signal intensity on T2-weighted images is present in the left frontal lobe. There is dilatation of the overlying cortical sulci. This represents gliosis and encephalomalacia. Scattered punctate areas of increased signal intensity on T2-weighted images are present in the periventricular and subcortical white matter. This represents small vessel ischemic disease. There is no intraparenchymal hemorrhage, infarct, mass or midline shift. There is no abnormal enhancement. The ventricular system and cortical sulci are dilated consistent with minimal volume loss. There is no extracerebral collection. The sinuses are clear. IMPRESSION: 1. Left frontal lobe encephalomalacia. 2. Minimal small vessel ischemic disease. 3. Minimal volume loss. Signed by Nish Rico MD 10/14/2016 04:24 P
[2016-10-14] MEDS: WARFARIN SOD 7.5 MG TAB PO SCH (17:13)
--- NOTE | 2016-10-14 19:44 | SMCUROLCON ---
Urology Consultation General Date of Consultation 10/14/16 Reason For Consultation Gross Hematuria History of Present Illness This is a 71 M w/ a PMH significant for A fib, COPD, HTN, and HL, admitted to the hospital for SOB. Urology is consulted to evaluate the patient for new onset gross hematuria. The patient notes that he noticed blood in his urine this morning and that he has had small amounts of blood in the urine throughout the day. He has never had this happen before. He denies abdominal or flank pain. He denies dysuria or other voiding complaints. He has no history of kidney stones. He is a current smoker and has smoked for over 50 years. Past Medical History Medical History see HPI Medications Current Medications Current Medications Albuterol Sulfate (Proventil Neb) 2.5 mg Q2HP PRN INH SOB/WHEEZING; Start 10/09 at 20:30; Stop 11/08/16 at 20:29 Albuterol/ Ipratropium (Duoneb (Ipr 0.5mg/Alb 2.5mg)) 3 ml Q20M PRN NEB SHORTNESS OF BREATH Last administered on 10/09/16 18:09; Start 10/09/16 at 17: 15 Albuterol/ Ipratropium (Duoneb (Ipr 0.5mg/Alb 2.5mg)) 3 ml RQ4H NEB Last administered on 10/14/16 16:25; Start 10/10/16 at 00:00; Stop 11/09/16 at 00:00 Atenolol (Tenormin) 25 mg QPM PO Last administered on 10/13/16 20:38; Start at 21:00; Stop 11/08/16 at 20:59 Famotidine (Pepcid) 40 mg QPM PO Last administered on 10/13/16 20:37; Start at 21:00; Stop 11/08/16 at 20:59 Fish Oil ([place]-3 (1050mg)) 2 ea QPM PO Last administered on 10/13/16 20:37; Start 10/09/16 at 21:00; Stop 11/08/16 at 20:59 Furosemide (LASIX injection) 40 mg Q12H IV Last administered on 10/10/16 08:05 ; Start 10/09/16 at 21:00; Stop 10/10/16 at 14:08; Status DC Furosemide (Lasix) 40 mg DAILY PO Last administered on 10/14/16 08:48; Start 10/11/16 at 09:00; Stop 11/10/16 at 08:59 Guaifenesin (Mucinex Tab Er) 1,200 mg BID PO Last administered on 10/14/16 08: 48; Start 10/09/16 at 21:00; Stop 11/08/16 at 20:59 Home Med (Med Rec Complete!) ASDIRECTED XX ; Start 10/09/16 at 19:15; Stop at 19:15; Status DC Methylprednisolone (SOLUmedrol) 60 mg Q8H IV Last administered on 10/10/16 09: 12; Start 10/10/16 at 02:00; Stop 10/10/16 at 14:08; Status DC Ondansetron HCl (ZOFRAN INJection) 4 mg Q6HP PRN IV NAUSEA OR VOMITING; Start 10/09/16 at 20:30; Stop 11/08/16 at 20:29 Prednisone (Deltasone) 40 mg BID PO Last administered on 10/12/16 08:18; Start 10/10/16 at 21:00; Stop 10/12/16 at 10:13; Status DC Prednisone (Deltasone) 40 mg DAILY PO Last administered on 10/14/16 08:48; Start 10/13/16 at 09:00; Stop 11/12/16 at 08:59 Ramelteon (Rozerem) 8 mg QHS PO Last administered on 10/13/16 20:37; Start at 23:30; Stop 11/11/16 at 23:29 Sodium Chloride (Saline Lock Flush) 2 ml ASDIRECTED PRN IV SEE LABEL COMMENTS Last administered on 10/10/16 02:25; Start 10/09/16 at 21:45; Stop 11/08/16 at 21:44 Sodium Chloride (Saline Lock Flush) 2 ml SLF IV Last administered on 10/14/16 14:00; Start 10/09/16 at 22:00; Stop 11/08/16 at 21:59 Warfarin Sodium (Coumadin) 6 mg DAILY@17 PO Last administered on 10/11/16 17: 20; Start 10/10/16 at 17:00; Stop 10/12/16 at 10:13; Status DC Warfarin Sodium (Coumadin) 7.5 mg DAILY@17 PO Last administered on 10/14/16t 17 :13; Start 10/12/16 at 17:00; Stop 10/19/16 at 16:59 Allergies Allergies: Coded Allergies: Apixaban (Verified Adverse Reaction, Mild, 10/09/16) CI Pigment Blue 63 (Verified Adverse Reaction, Mild, 10/09/16) Dabigatran (Verified Adverse Reaction, Mild, 10/09/16) Rivaroxaban (Verified Adverse Reaction, Mild, 10/09/16) Yellow Dye (Verified Adverse Reaction, Mild, 10/09/16) Review of Systems General: Denies: Fatigue, Malaise Constitutional: Denies: Chills, Fever Pulmonary: Reports: Dyspnea Cardiovascular: Denies Chest Pain Gastrointestinal: Denies: Abdominal Pain, Nausea, Vomiting Genitourinary: Reports: Hematuria, Denies: Dysuria, Frequency, Incontinence Musculoskeletal: Denies: Back Pain Psych: Reports: Mood Normal Physical Examination General Exam: : Alert: Cooperative: No Acute Distress ENT EXAM: : Atraumatic Chest Exam: : Clear to auscultation Heart Exam: : Rate Normal Abdomen Exam: : SoftNo: Tenderness Skin Exam: : Nl turgor and temperature Neuro Exam: : Normal Speech Psych Exam: : Mental status NL: Mood NL Vital Signs/I&O Vital Signs Date Time Temp Pulse Resp B/P Pulse Ox O2 Delivery O2 Flow Rate FiO2 10/14/16 14:00 98.3 83 18 106/66 93 Nasal Cannula 4.0 I&O- Last 24 Hours up to 6 AM 10/14/16 06:00 Intake Total 1650 ml Output Total 3225 ml Balance -1575 ml Laboratory Data 24H Labs Laboratory Tests 2 10/14/16 06:57: Anion Gap 5L, Blood Urea Nitrogen 25H, Creatinine 0.63L, Sodium Level 137, Potassium Level 4.3, Chloride Level 95L, Carbon Dioxide Level 37H, Calcium Level 8.9, Glomerular Filtration Rate > 60.0, Prothromb Time International Ratio 1.54, Prothrombin Time 18.6H 10/14/16 07:01: Urine Amorphous Sediment , Urine Appearance CLOUDYH, Urine Color REDH, Urine pH 6.0, Urine Specific Portal 1.019, Urine Protein 2+H, Urine Glucose (UA) NEGATIVE, Urine Ketones NEGATIVE, Urine Urobilinogen 0.2, Urine Bilirubin NEGATIVE, Urine Leukocyte Esterase NEGATIVE, Urine Bacteria (Auto) NEGATIVE, Urine Blood 2+H, Urine Calcium Carbonate Cryst(Auto) , Urine Calcium Oxalate Cryst (Auto) , Urine Calcium Phosphate Sunita (Auto) , Urine Cellular Casts , Urine Cystine Crystals , Urine Granular Casts (Auto) , Urine Hyaline Casts (Auto ) 0, Urine Leucine Crystals , Urine Mucus (Auto) SMALL, Urine Nitrite NEGATIVE, Urine Oval Fat Bodies (Auto) , Urine RBC (Auto) TNTCH, Urine Renal Epithelial Cells , Urine Sperm (Auto) , Urine Squamous Epithelial Cells 2, Urine Transitional Epithelial Cells , Urine Trichomonas (Auto) , Urine Triple Phosphate Cryst (Auto) , Urine Tyrosine Crystals , Urine Uric Acid Crystals ( Auto) , Urine WBC (Auto) 23H, Urine Waxy Casts (Auto) , Urine Yeast-Like Cells ( Auto) SMALLH CBC/BMP Laboratory Tests 10/14/16 06:57 Calcium Level 8.9, Red Blood Count 3.95 L, Mean Corpuscular Volume 89.5, Mean Corpuscular Hemoglobin 28.6, Mean Corpuscular Hemoglobin Concent 32.0, Red Cell Distribution Width 13.5 Microbiology Microbiology 10/10/16 Acid Fast Stain, Received Pending 10/10/16 Mycobacterial Culture, Received Pending 10/10/16 Fungal Smear, Received Pending 10/10/16 Fungal Culture, Received Pending 10/10/16 Gram Stain - Final, Complete 10/10/16 Body Fluid Culture - Final, Complete 10/14/16 Urine Culture, Received Pending Assessment This is a 71 y/o M admitted w/ SOB, now having painless gross hematuria. He is on coumadin but has been subtherapeutic on this. He had a CT A/P w/ IV contrast performed 2 months ago that was not notable for any abnormalities. I explained to the patient the possible causes of hematuria and discussed the recommended w/u, including upper tract imaging (already done w/ the CT 2 months ago) and cystoscopy. Plan - send urine for culture to rule out UTI - send urine for cytology - will plan for cystoscopy as an outpatient (my office will schedule this) OSCAR PATTERSON MD Oct 14, 2016 19:44
[2016-10-14] MEDS: ATENOLOL 25 MG TAB PO SCH (20:39)
[2016-10-14] MEDS: FAMOTIDINE 20 MG TAB PO SCH (20:43)
[2016-10-14] MEDS: OMEGA-3 1050MG CAPSULE PO SCH (20:43)
[2016-10-14] MEDS: RAMELTEON 8 MG TAB (ROZEREM) PO SCH (20:43)
[2016-10-14 22:00] VITALS: BP 104/62
[2016-10-15] VITALS (8 sets, daily range): BP systolic 112–136; BP diastolic 64–97
[2016-10-15] MEDS: IPRATROPIUM 0.5MG/ALBUTEROL 2.5MG INH SOL UD 3ML (DUONEB)(J7620) NEB SCH ×7 (04:09→23:11)
[2016-10-15] MEDS: SLF 3 ML SYR IV SCH ×3 (05:30→21:45)
[2016-10-15 07:07] LABS: MEAN CORPUSCULAR HEMOGLOBIN 29.1 pg (27.0-33.0); MEAN CORPUSCULAR VOLUME 88.3 fl (80.0-96.0); RED CELL DISTRIBUTION WIDTH 13.5 % (11.5-14.5); WHITE BLOOD COUNT 10.9 K/mm3 (4.0-10.0)
[2016-10-15 07:11] LABS: INR 1.67
[2016-10-15 07:24] LABS: ANION GAP 6 MEQ/L (8-16); BLOOD UREA NITROGEN 26 MG/DL (7-18); CALCIUM LEVEL 8.9 MG/DL (8.8-10.2); CARBON DIOXIDE LEVEL 37 MEQ/L (21-32); CHLORIDE LEVEL 95 MEQ/L (98-107); CREATININE FOR GFR 0.66 MG/DL (0.70-1.30); GLOMERULAR FILTRATION RATE > 60.0 (>42); GLUCOSE, FASTING 101 MG/DL (83-110); POTASSIUM SERUM 3.6 MEQ/L (3.5-5.1); SODIUM LEVEL 138 MEQ/L (136-145)
--- NOTE | 2016-10-15 08:38 | IPNPDOC ---
Subjective Date Seen The patient was seen on 10/15/16. Subjective Chief Complaint/HPI The patient is a 71-year-old male admitted with a reason for visit of Hypoxia. General: Denies: Chills, Fatigue, Malaise, Night Sweats, Normal Appetite, Other Symptoms, ROS Unobtainable Constitutional: Denies: Chills, Fatigue, Fever, Lethargy, Malaise, Night Sweats , Other, Weakness, Weight Loss Eyes: Denies: Conjunctivae inflammation, Eyelid inflammation, Other, Pain, Redness, Vision change ENT: Denies: Dysphagia, Ear Pain, Epistaxis, Head Aches, Other Symptoms, Post Nasal Drip, Sinus Congestion, Sore Throat Skin: Denies: Breakdown, Bruising, Dry, Itching, Jaundice, Lesions, Nail Changes, Other, Rash Pulmonary: Denies: Cough, Dyspnea, Other Symptoms, Pleuritic Chest Pain Cardiovascular: Denies: Chest Pain, Edema, Lt Headedness, Orthopnea, Other Symptoms, Palpitations, Paroxysmal Noc. Dyspnea Gastrointestinal: Denies: Abdominal Pain, Constipation, Diarrhea, Hematochezia , Melena, Nausea, Other Symptoms, Vomiting Genitourinary: Denies: Dysuria, Frequency, Hematuria, Incontinence, Other Symptoms, Retention Objective Physical Examination General Exam: Positive: Alert, Cooperative, No Acute Distress Eye Exam: Positive: Conjunctiva & lids normal, EOMI, PERRLA, Negative: Sclera icteric ENT Exam: Positive: Atraumatic Neck Exam: Positive: Supple Chest Exam: Positive: Clear to auscultation, Normal air movement Heart Exam: Positive: Rate Normal Abdomen Exam: Positive: Normal bowel sounds, Soft, Negative: Tenderness Extremity Exam: Negative: Edema Psych Exam: Positive: Oriented x 3 Assessment /Plan Problems (1) Adenocarcinoma Status: Acute Discussed With: Operator Supply, Patient Problem Specific Plan: Consult Specialist, Monitor Clinically 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 EGD unrevealing. Plan for colonoscopy today. MRI brain negative for metastatic disease. (2) Hematuria Status: Resolved Discussed With: Operator Supply, Patient Problem Specific Plan: Consult Specialist, Monitor Clinically, Repeat Labs Problem Text: Gross hematuria in the setting of nicotine addiction and newly diagnosed adeno CA. Resolved. Urology consultation appreciated. Plan for outpatient cysto. Urine culture unremarkable. Cytology pending. (3) Pleural effusion Status: Acute Response to Treatment: Improving Discussed With: Patient Problem Specific Plan: Consult Specialist, Monitor Clinically, Repeat Labs, Repeat Tests Problem Text: S/P thoracentesis. Repeat CXR showed improvement yesterday. Cytology positive malignancy - adeno CA with signet ring cells. (4) HTN (hypertension) Status: Chronic Discussed With: Patient Problem Specific Plan: Consult Specialist, Monitor Clinically Problem Text: Continue with lasix and atenolol. (5) Dyslipidemia Status: Chronic Problem Text: Continue with omega 3 supplementation. (6) COPD (chronic obstructive pulmonary disease) Status: Chronic Discussed With: Patient Problem Specific Plan: Monitor Clinically Problem Text: Continue with respiratory regimen. Will add IS, acpella. Continue mucolytics. (7) Obesity Status: Chronic Discussed With: Patient Problem Text: Further complicating factor to his medical care. (8) FEROZ (obstructive sleep apnea) Status: Chronic Discussed With: Patient Problem Specific Plan: Monitor Clinically (9) Nicotine abuse Status: Chronic Discussed With: Patient (10) Chronic atrial fibrillation Status: Chronic Discussed With: Patient Problem Text: Rate controlled, continue atenolol. A/C with coumadin - sub-therapeutic. Continue daily INR. (11) Hypoxia Status: Acute Discussed With: Patient Problem Specific Plan: Consult Specialist, Monitor Clinically, Repeat Labs Problem Text: Supplemental oxygen as needed. Titrate to 88-92. Discussed with pulmonology, assistance appreciated. (12) Chest pain Status: Acute Response to Treatment: Progressing Discussed With: Patient Problem Specific Plan: Monitor Clinically, Repeat Labs, Repeat Tests Problem Text: right sided chest pain last night, atypical for angina. improved. one set card markers negative, ECG non-specific changes. Serial troponins. Repeat ECG. Consider telemetry monitoring Plan/VTE VTE Prophylaxis Ordered?: Yes (warfarin) Plan Diet: Make NPO, Continue Current Respiratory: Wean Oxygen Diagnostics: Repeat Labs in AM, MRI, Other Diagnostics Anticipated Discharge: Home Plan for colonoscopy today. Plan to discharge in 24 hours. Disposition Discharge home. Will require home with oxygen. VS, I&O, 24H, Fishbone Vital Signs/I&O Vital Signs Date Time Temp Pulse Resp B/P Pulse Ox O2 Delivery O2 Flow Rate FiO2 10/15/16 06:00 97.9 92 20 112/64 93 Nasal Cannula 4.0 I&O- Last 24 Hours up to 6 AM 10/15/16 06:00 Intake Total 1080 ml Output Total 2500 ml Balance -1420 ml Laboratory Data 24H LABS Laboratory Tests 2 10/15/16 06:44: Anion Gap 6L, Blood Urea Nitrogen 26H, Creatinine 0.66L, Sodium Level 138, Potassium Level 3.6, Chloride Level 95L, Carbon Dioxide Level 37H, Calcium Level 8.9, Glomerular Filtration Rate > 60.0, Prothromb Time International Ratio 1.67, Prothrombin Time 19.8H CBC/BMP Laboratory Tests 10/15/16 06:44 Calcium Level 8.9, Red Blood Count 4.04 L, Mean Corpuscular Volume 88.3, Mean Corpuscular Hemoglobin 29.1, Mean Corpuscular Hemoglobin Concent 33.0, Red Cell Distribution Width 13.5 Microbiology Microbiology 10/10/16 Acid Fast Stain, Received Pending 10/10/16 Mycobacterial Culture, Received Pending 10/10/16 Fungal Smear, Received Pending 10/10/16 Fungal Culture, Received Pending 10/10/16 Gram Stain - Final, Complete 10/10/16 Body Fluid Culture - Final, Complete 10/14/16 Urine Culture, Received Pending CASPER MASON MD Oct 15, 2016 08:38
--- NOTE | 2016-10-15 15:01 | ROOR ---
Patient Name: Stalin Boateng Procedure Date: 10/15/2016 2:00 PM Date of : 1945 Age: 71 Gender: Male Note Status: Finalized Procedure: Upper GI endoscopy Indications: Endoscopy to confirm suspected neoplastic lesion of the esophagus seen on previous imaging study, Endoscopy to confirm suspected neoplastic lesion of the stomach seen on previous imaging study, Endoscopy to confirm suspected neoplastic lesion of the duodenum seen on previous imaging study Providers: Mario WELCH MD Referring MD: 2. Inpatient 2. Inpatient Requesting Provider: Medicines: Monitored Anesthesia Care Complications: No immediate complications. Procedure: Pre-Anesthesia Assessment: - The heart rate, respiratory rate, oxygen saturations, blood pressure, adequacy of pulmonary ventilation, and response to care were monitored throughout the procedure. The Endoscope was introduced through the mouth, and advanced to the second part of duodenum. The Endoscope was introduced through the mouth, and advanced to the second part of duodenum. The upper GI endoscopy was accomplished without difficulty. The patient tolerated the procedure well. Findings: Candidiasis was found in the entire esophagus. Non-severe esophagitis was found at the gastroesophageal junction. Biopsies were taken with a cold forceps for histology. Minimal inflammation was found in the gastric antrum. Biopsies were taken with a cold forceps for histology. A single diminutive nodule was found in the second portion of the duodenum. Biopsies were taken with a cold forceps for histology. The findings above are minimal. No neoplastic lesion is seen in the Upper GI tract. Impression: - Monilial esophagitis. - Non-severe esophagitis. Biopsied. - Gastritis. Biopsied. - Nodule found in the duodenum. Biopsied. - The findings above are minimal. No neoplastic lesion is seen in the Upper GI tract. Recommendation: - Observe patient's clinical course. - Refer to an oncologist at appointment to be scheduled. - Further testing/management to be discussed with pathologist and oncologist re further search for a primary malignancy. Mario Welch MD Mario WELCH MD 10/15/2016 3:01:01 PM This report has been signed electronically. Number of Addenda: 0 Note Initiated On: 10/15/2016 2:00 PM Estimated Blood Loss: Estimated blood loss: none.
[2016-10-15] MEDS: guaiFENesin ER 600 MG TAB PO SCH ×2 (15:08→21:44)
[2016-10-15] MEDS ORDERED: LEVALBUTEROL 1.25 MG/0.5 ML CONCENTRATE NEB As Ordered ONE (15:17)
[2016-10-15] MEDS ORDERED: ALBUTEROL SULFATE 2.5 MG/0.5 ML INH NEB SOLN INH ONE (16:00)
[2016-10-15] MEDS: NYSTATIN 500,000 U/5 ML SUSP UDC SS SCH ×2 (16:26→21:45)
[2016-10-15] MEDS: FUROSEMIDE 40 MG TAB PO SCH (16:26)
[2016-10-15] MEDS: predniSONE 20 MG TAB PO SCH (16:26)
[2016-10-15] MEDS: WARFARIN SOD 7.5 MG TAB PO SCH (16:27)
[2016-10-15] MEDS ORDERED: GOLYTELY SOLN 4000 ML BTL PO ONE (17:00)
--- NOTE | 2016-10-15 21:32 | CR ---
DATE OF CONSULTATION: 10/15/2016 CONSULTATION REPORT FOR: Dr. 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 HISTORY OF PRESENT ILLNESS: Stalin Boateng is a 71-year-old gentleman who was admitted on 10/09/2016 after he presented with worsening shortness of breath and dyspnea on exertion. A CT of the chest on 10/09/2016 revealed bulky right hilar and mediastinal lymphadenopathy with collapse of the right middle lobe and some mucous plugging along with a right pleural effusion. Also noted multiple scattered bilateral pulmonary nodules which were stable. Of note prior CT scan had noted hilar and mediastinal lymphadenopathy as well. Further evaluation with right pleurocentesis diagnostically revealed numerous large atypical single cells consistent with mucinous adenocarcinoma of possible gastrointestinal (GI) primary. The patient is scheduled for upper endoscopy today. Hematology/oncology was consulted given this new finding. Clinically, the patient's dyspnea on exertion is stable. He is currently on oxygen via nasal cannula. He denies any weight loss. He has had a worsening cough with sputum production. He was recently admitted for pneumonia in August 2016 and he denies any chest pain. PAST MEDICAL HISTORY: 1. Hypertension. 2. Atrial fibrillation. 3. Obstructive sleep apnea. PAST SURGICAL HISTORY: 1. Right shoulder surgery. 2. Left knee arthroplasty. 3. Right knee arthroscopy. 4. Bilateral carpal tunnel procedures. HOME MEDICATIONS: Include: Lasix, fish oil, atenolol, Ventolin HFA, guaifenesin, ranitidine, Advair, Spiriva, and Coumadin. ALLERGIES: APIXABAN, RIVAROXABAN, BLUE and YELLOW DYE. PHYSICAL EXAMINATION: VITAL SIGNS: Temperature is 97.9, blood pressure is 112/64, heart rate is 92, pulse oximetry is 93% on three liters of oxygen via nasal cannula. GENERAL: ECOG of 1. He is not in distress. He does have some exertional dyspnea on oxygen. HEENT: No pallor. Anicteric sclerae. Moist mucous membranes. HEART: Irregularly irregular. No appreciable murmurs. LUNGS: Decreased breath sounds at the right base. Otherwise, no wheezing, rhonchi or rales. Prolonged expiratory phase. ABDOMEN: Soft, nontender, nondistended. No hepatosplenomegaly or masses. EXTREMITIES: Trace edema bilaterally. LABORATORIES AND STUDIES: As stated above. IMPRESSION AND PLAN: A 71-year-old gentleman with a new diagnosis of mucinous adenocarcinoma from right pleural fluid, possible upper gastrointestinal (GI) primary. This is in the setting of CT scan finding of the chest which revealed multiple noncalcified pulmonary nodules bilaterally and bulky right hilar subcarinal paratracheal lymphadenopathy. RECOMMENDATIONS: 1. Recommend completing staging studies with MRI of the brain. 2. A CT/PET scan will also be recommended but likely this will not be achievable as an inpatient. 3. Recommend biopsy of the primary lung lesion and also upper endoscopy to evaluate for any upper gastrointestinal (GI) primary. Recommend sending biopsy tissue testing for E-cadherin. 4. We will also followup with Mr. Boateng once he is discharged and stabilized as an outpatient to discuss treatment options at that time. JUAND
[2016-10-15] MEDS: OMEGA-3 1050MG CAPSULE PO SCH (21:43)
[2016-10-15] MEDS: RAMELTEON 8 MG TAB (ROZEREM) PO SCH (21:43)
[2016-10-15] MEDS: ATENOLOL 25 MG TAB PO SCH (21:45)
[2016-10-15] MEDS: FAMOTIDINE 20 MG TAB PO SCH (21:45)
[2016-10-16] VITALS (7 sets, daily range): BP systolic 114–153; BP diastolic 62–82
[2016-10-16] MEDS: IPRATROPIUM 0.5MG/ALBUTEROL 2.5MG INH SOL UD 3ML (DUONEB)(J7620) NEB SCH ×6 (02:32→23:50)
[2016-10-16] MEDS ORDERED: GOLYTELY SOLN 4000 ML BTL PO ONE (05:30)
[2016-10-16] MEDS: SLF 3 ML SYR IV SCH ×3 (05:33→21:44)
[2016-10-16 06:55] LABS: MEAN CORPUSCULAR HEMOGLOBIN 29.1 pg (27.0-33.0); MEAN CORPUSCULAR HGB CONC 32.6 g/dl (32.0-36.5); MEAN CORPUSCULAR VOLUME 89.1 fl (80.0-96.0); RED CELL DISTRIBUTION WIDTH 13.5 % (11.5-14.5); WHITE BLOOD COUNT 9.4 K/mm3 (4.0-10.0)
[2016-10-16 07:00] LABS: INR 1.89
[2016-10-16 07:08] LABS: ANION GAP 6 MEQ/L (8-16); BLOOD UREA NITROGEN 19 MG/DL (7-18); CALCIUM LEVEL 8.5 MG/DL (8.8-10.2); CARBON DIOXIDE LEVEL 38 MEQ/L (21-32); CHLORIDE LEVEL 93 MEQ/L (98-107); CREATININE FOR GFR 0.69 MG/DL (0.70-1.30); GLOMERULAR FILTRATION RATE > 60.0 (>42); GLUCOSE, FASTING 100 MG/DL (83-110); POTASSIUM SERUM 3.9 MEQ/L (3.5-5.1); SODIUM LEVEL 137 MEQ/L (136-145)
[2016-10-16] MEDS: guaiFENesin ER 600 MG TAB PO SCH ×2 (08:55→21:43)
[2016-10-16] MEDS: NYSTATIN 500,000 U/5 ML SUSP UDC SS SCH ×4 (08:56→21:43)
[2016-10-16] MEDS: FUROSEMIDE 40 MG TAB PO SCH (08:56)
[2016-10-16] MEDS: predniSONE 20 MG TAB PO SCH (08:56)
--- NOTE | 2016-10-16 17:40 | ROOR ---
Patient Name: Stalin Boateng Procedure Date: 10/16/2016 3:50 PM Date of : 1945 Age: 71 Gender: Male Note Status: Finalized Procedure: Colonoscopy Indications: Metastatic cancer to abdominal lymph nodes Providers: Mario WELCH MD Referring MD: Michelle ROLDAN MD Requesting Provider: Medicines: Monitored Anesthesia Care Complications: No immediate complications. Procedure: Pre-Anesthesia Assessment: - The heart rate, respiratory rate, oxygen saturations, blood pressure, adequacy of pulmonary ventilation, and response to care were monitored throughout the procedure. The Colonoscope was introduced through the anus and advanced to 6 cm into the ileum. The colonoscopy was performed without difficulty. The patient tolerated the procedure well. The quality of the bowel preparation was good. Findings: The perianal and digital rectal examinations were normal. (EXAM: Complete, PREP:Adequate) A 8 mm polyp was found in the cecum. The polyp was semi-sessile. The polyp was removed with a cold snare. Resection and retrieval were complete. To prevent bleeding after the polypectomy, three hemostatic clips were successfully placed (MR conditional). There was no bleeding at the end of the procedure. A 5 mm polyp was found in the rectum. The polyp was sessile. The polyp was removed with a cold snare. Resection and retrieval were complete. Multiple medium-mouthed diverticula were found in the sigmoid colon. Small Internal Hemorrhoids. The terminal ileum appeared normal. There is no endoscopic evidence of tumor in the entire colon. There is no endoscopic evidence of tumor in the entire examined ileum. Impression: (- There is no endoscopic evidence of a primary malignancy in the entire colon and examined terminal ileum.) - One 8 mm polyp in the cecum, removed with a cold snare. Resected and retrieved. Clips (MR conditional) were placed. - One 5 mm polyp in the rectum, removed with a cold snare. Resected and retrieved. - Mild diverticulosis in the sigmoid colon. - Small Internal Hemorrhoids. - The examined portion of the ileum was normal. Recommendation: - Refer to an oncologist. - The patient will be observed post-procedure, until all discharge criteria are met. - Discharge patient to home today from my standpoint. Mario Welch MD Mario WELCH MD 10/16/2016 5:40:11 PM This report has been signed electronically. Number of Addenda: 0 Note Initiated On: 10/16/2016 3:50 PM Estimated Blood Loss: Estimated blood loss: none.
[2016-10-16] MEDS ORDERED: LR 1,000 ML IV SCH (18:00)
[2016-10-16] MEDS: WARFARIN SOD 7.5 MG TAB PO SCH (18:20)
[2016-10-16] MEDS: ATENOLOL 25 MG TAB PO SCH (21:42)
[2016-10-16] MEDS: OMEGA-3 1050MG CAPSULE PO SCH (21:42)
[2016-10-16] MEDS: FAMOTIDINE 20 MG TAB PO SCH (21:43)
[2016-10-16] MEDS: RAMELTEON 8 MG TAB (ROZEREM) PO SCH (21:43)
[2016-10-17 02:00] VITALS: BP 126/78
[2016-10-17] MEDS: IPRATROPIUM 0.5MG/ALBUTEROL 2.5MG INH SOL UD 3ML (DUONEB)(J7620) NEB SCH ×3 (03:28→11:02)
[2016-10-17 05:28] VITALS: BP 138/69
[2016-10-17] MEDS: SLF 3 ML SYR IV SCH (06:00)
[2016-10-17 06:31] LABS: ANION GAP 5 MEQ/L (8-16); BLOOD UREA NITROGEN 27 MG/DL (7-18); CALCIUM LEVEL 8.5 MG/DL (8.8-10.2); CARBON DIOXIDE LEVEL 39 MEQ/L (21-32); CHLORIDE LEVEL 93 MEQ/L (98-107); CREATININE FOR GFR 0.65 MG/DL (0.70-1.30); GLOMERULAR FILTRATION RATE > 60.0 (>42); GLUCOSE, FASTING 103 MG/DL (83-110); POTASSIUM SERUM 3.6 MEQ/L (3.5-5.1); SODIUM LEVEL 137 MEQ/L (136-145)
--- NOTE | 2016-10-17 08:19 | DS.PDOC ---
Discharge Summary General Date of Admission Oct 09, 2016 at 18:55 Date of Discharge 10/17/16 Primary Care Physician: Ayse Choudhary MD Specialist/Consultants Involve: SHAMEKA RAMAN MD Specialist/Consultants Involve Dr. Wheat, Dr. Sanchez, Dr. Son Discharge Summary PROCEDURES PERFORMED DURING STAY: right tube thoracostomy, colonoscopy, EGD DISCHARGE DIAGNOSES: 1. 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 Hypoxic respiratory failure - requiring 2L supplemental oxygen via nasal cannula 2. HTN 3. Hyperlipidemia 4. COPD 5. Obesity 6. FEROZ - has not had formal evaluation 7. Nicotine abuse - >50pack year history - current smoker 8. Afib 9. Hematuria 10. Right pleural effusion with adenopathy 11. Left frontal lobe encephalomalacia 12. Left adrenal adenoma 13. Multiple pulmonary nodules CHIEF COMPLAINT: SOB, Hypoxia HISTORY OF PRESENT ILLNESS: 71 yo male presenting for several day history of worsening shortness of breath, and chronic cough productive of white sputum. Recent hospital stay 09/22/16 - 09/23/16 for SOB, diagnosed with pneumonia, discharged with antibiotics (Levaquin) and steroids. Patient stated shortness of breath worsened since ending his steroid taper. HOSPITAL COURSE: Patient admitted for acute hypoxic respiratory failure. Found to have a right pleural effusion with mediastinal and hilar adenopathy, and RML consolidation. He underwent diagnostic/therapeutic thoracentesis. Cytology and cell block results positive for malignancy - mucinous adeno CA with signet ring cells - likely upper GI primary. He subsequently underwent colonoscopy and EGD, which were both unrevealing for a primary source for his malignancy. MRI brain was obtained which did not show any metastatic disease. CT A/P was performed on previous admission on 09/22/16 for abdominal pain, with no evidence of metastatic disease or information to indicate a primary. Hospital stay was also significant for painless gross hematuria. Urology was consulted. Imaging was not obtained given his recent CT A/P on 09/22/16. UA was negative for UTI, UCx negative, and urine cytology negative. Patient was very anxious to return home, and stated he would rather go home with oxygen, and follow up as outpatient rather than remain in hospital. He does appear to be very capable and compliant , and has excellent support from his Nikole. As such, he is being discharged today with instructions as indicated, including supplemental oxygen via nasal cannula, and interim imaging for further evaluation of pleural effusions. Will likely require either routine therapeutic thoracentesis or pleurx cather for drainage. DISCHARGE MEDICATIONS: Please see below. ALLERGIES: Please see below. PHYSICAL EXAMINATION ON DISCHARGE: VITAL SIGNS: Please see below. GENERAL: NAD HEENT: NC/AT, EOMI, PERRL NECK: supple CARDIOVASCULAR EXAMINATION: +S1S2, irregularly irregular RESPIRATORY EXAMINATION: coarse b/l breath sounds ABDOMINAL EXAMINATION: soft, NT, +BS EXTREMITIES: no edema SKIN: no rashes NEUROLOGICAL EXAMINATION: no gross focal deficits PSYCHIATRIC EXAMINATION: AAOx3 LABORATORY DATA: Please see below. IMAGING: Brain MRI IMPRESSION: 1. Left frontal lobe encephalomalacia. 2. Minimal small vessel ischemic disease. 3. Minimal volume loss. CT Chest Impression: 1. Fairly bulky right hilar and mediastinal lymphadenopathy is again noted. There is collapse and consolidation in the right middle lobe with amputation of the right middle lobe bronchial air column. This may reflect mucous plugging or extrinsic compression. There is also some increase in consolidation in the right lower lobe. 2. Small to moderate right pleural effusion. This has increased since the September 22, 2016 study. 3. Multiple scattered bilateral pulmonary nodules. These are essentially unchanged. CT A/P - 09/22/16 Impression: 1. No acute findings to explain the patient's pain. 2. No obstructive or inflammatory bowel changes. 3. Severe multilevel degenerative disc disease with disc osteophyte complexes as described. This causes central canal stenosis at L3/L4 and L2/L3. There is grade 1 spondylolisthesis noted at L3/L4, L4/L5, and L5/S1. No acute fractures are identified. 4. Benign left adrenal adenoma. PROGNOSIS: Guarded prognosis. ACTIVITY: As tolerated. DIET: 2 gram sodium, low fat low cholesterol DISCHARGE PLAN: Discharge home with instructions as indicated. Plan of care was discussed extensively at length with patient and at bedside. DISPOSITION: Discharge home. DISCHARGE INSTRUCTIONS: 1. Follow up PCP Dr. Ayse Choudhary 3-5 days. 2. Interim CXR - further eval pleural effusions. 3. Follow up urology Dr. Son as scheduled for cystoscopy. 4. Follow up oncology Dr. Raman 3-5 days. 5. Follow up pulmonology, Dr. Lacy as scheduled. DISCHARGE CONDITION: Stable. TIME SPENT ON DISCHARGE: Greater than 30 minutes. Vital Signs/I&Os Vital Signs Date Time Temp Pulse Resp B/P Pulse Ox O2 Delivery O2 Flow Rate FiO2 10/17/16 05:28 98.7 84 17 138/69 96 Nasal Cannula 3.0 I&O- Last 24 Hours up to 6 AM 10/17/16 06:00 Intake Total 1300 ml Output Total 150 ml Balance 1150 ml Laboratory Data Labs 24H Laboratory Tests 2 10/17/16 05:50: Anion Gap 5L, Blood Urea Nitrogen 27H, Creatinine 0.65L, Sodium Level 137, Potassium Level 3.6, Chloride Level 93L, Carbon Dioxide Level 39H, Calcium Level 8.5L, Glomerular Filtration Rate > 60.0 CBC/BMP Laboratory Tests 10/17/16 05:50 Calcium Level 8.5 L Microbiology Microbiology 10/10/16 Acid Fast Stain, Received Pending 10/10/16 Mycobacterial Culture, Received Pending 10/10/16 Fungal Smear, Received Pending 10/10/16 Fungal Culture, Received Pending 10/10/16 Gram Stain - Final, Complete 10/10/16 Body Fluid Culture - Final, Complete 10/14/16 Urine Culture - Final, Complete Discharge Medications Scheduled (Guaifenesin ER) 1,200 Mg Tab 1,200 MG PO QPM (Reported) Atenolol (Atenolol) 25 Mg Tab 25 MG PO QPM (Reported) Fish Oil (Fish Oil) 1,000 Mg Cap 2,000 MG PO QPM (Reported) Furosemide (Furosemide) 40 Mg Tab 40 MG PO DAILY (Reported) TAKES BEFORE 1500 Prednisone (Prednisone) 10 Mg Tab 10 MG PO ASDIRECTED Ranitidine HCl (Ranitidine HCl) 150 Mg Tab 2 TAB PO QPM (Reported) Salmeterol/Fluticasone (Advair Diskus 250-50 Mcg/Dose) 14 Puff/Inhaler Aerp 1 PUFF INH BID (Reported) Tiotropium [place] Monohydrate (Spiriva Handihaler) 18 Mcg Cap 1 INHALATION INH QPM (Reported) Warfarin Sod (Coumadin) 5 Mg Tab 5 MG PO 6XWK (Reported) SUN, MON, WED, THURS, FRI, SAT Warfarin Sod (Warfarin Sodium) 10 Mg Tab 10 MG PO 1XWK (Reported) TUESDAYS Scheduled PRN Albuterol Sulfate (Ventolin Hfa) 200 Puff/8 Gm Aers 2 PUFF INH Q4H PRN PRN SHORTNESS OF BREATH (Reported) Allergies Coded Allergies: Apixaban (Verified Adverse Reaction, Mild, 10/09/16) Dabigatran (Verified Adverse Reaction, Mild, 10/09/16) Rivaroxaban (Verified Adverse Reaction, Mild, 10/09/16) CASPER MASON MD Oct 17, 2016 08:19 Apixaban (Verified Adverse Reaction, Mild, 10/09/16) CI Pigment Blue 63 (Verified Adverse Reaction, Mild, 10/09/16) Dabigatran (Verified Adverse Reaction, Mild, 10/09/16) Rivaroxaban (Verified Adverse Reaction, Mild, 10/09/16) Yellow Dye (Verified Adverse Reaction, Mild, 10/09/16) CASPER MASON MD Oct 17, 2016 08:19
[2016-10-17] MEDS: NYSTATIN 500,000 U/5 ML SUSP UDC SS SCH (08:54)
[2016-10-17] MEDS: FUROSEMIDE 40 MG TAB PO SCH (08:54)
[2016-10-17] MEDS: guaiFENesin ER 600 MG TAB PO SCH (08:54)
[2016-10-17] MEDS: predniSONE 20 MG TAB PO SCH (08:54)
[2016-10-17] MEDS ORDERED: PRED10TA PO (12:05)
== END 2016-10-17 13:02 | disposition home or self-care (01) | DRG 180 ==
LOC: EDBD 11:36 → M ED 14:14 → M ED INP 18:55 → M PCU 21:19 → M MSPAV 10-11 16:05
PROVIDERS: ADMIT Internal Medicine; ATTEND Internal Medicine
PROC: 0W9930Z Drainage of Right Pleural Cavity with Drainage Device, Percutaneous Approach (ICD-10-PCS; principal; 2016-10-10)
PROC: 0DB98ZX Excision of Duodenum, Via Natural or Artificial Opening Endoscopic, Diagnostic (ICD-10-PCS; 2016-10-15)
PROC: 0DB68ZX Excision of Stomach, Via Natural or Artificial Opening Endoscopic, Diagnostic (ICD-10-PCS; 2016-10-15)
PROC: 0DBH4ZX Excision of Cecum, Percutaneous Endoscopic Approach, Diagnostic (ICD-10-PCS; 2016-10-16)
PROC: 0DBP4ZX Excision of Rectum, Percutaneous Endoscopic Approach, Diagnostic (ICD-10-PCS; 2016-10-16)
DX: C78.01 Secondary malignant neoplasm of right lung (principal); J96.21 Acute and chronic respiratory failure with hypoxia; J91.0 Malignant pleural effusion; B37.81 Candidal esophagitis; F17.200 Nicotine dependence, unspecified, uncomplicated; R91.8 Other nonspecific abnormal finding of lung field; I48.91 Unspecified atrial fibrillation; E78.5 Hyperlipidemia, unspecified; J44.9 Chronic obstructive pulmonary disease, unspecified; E66.9 Obesity, unspecified; G47.33 Obstructive sleep apnea (adult) (pediatric); R31.0 Gross hematuria; Z79.899 Other long term (current) drug therapy; Z88.8 Allergy status to other drugs, medicaments and biological substances; Z79.01 Long term (current) use of anticoagulants; K20.8 Other esophagitis; C80.1 Malignant (primary) neoplasm, unspecified; I10 Essential (primary) hypertension; D12.0 Benign neoplasm of cecum; K57.30 Diverticulosis of large intestine without perforation or abscess without bleeding

== ENCOUNTER → 2016-10-20 | Outpatient (CLI) | payer MEDICARE ==
[~2016-10-20] MED LIST changes: +CAPE1TAB PO; +IPRASOL4 INH; +NYST50SS SS; +PRED10TA PO; +PROBCAP14 PO; +PROC10TA PO; +XELO150T PO; +ZOFR20TA PO; +[UNRECOGNIZED DRUG - CODE] IV
--- NOTE | 2016-10-20 12:20 | REP ---
Clinical: Increasing cough and shortness of breath. Technique: PA and lateral. Comparison: 10/13/2016. Findings: Tkrhuolt-[id number]-veccw increased right pleural effusion with right mid to lower lobe infiltrate/atelectasis and left lower lobe atelectasis. Diffusely increased interstitial markings are also more prominent than prior examination. The patient has a history of malignancy and active neoplasm as well as pneumonia are within differential diagnosis. Impression: Wwkzlsmr-ov-rihnh increased right pleural effusion and increased bilateral infiltrates/atelectasis (right greater than left). Differential diagnosis includes neoplasm and multifocal pneumonia. Signed by Kg Cruz MD 10/20/2016 12:11 P
== END ==
LOC: M LRY 11:19
PROVIDERS: ATTEND Internal Medicine Pulmonary Disease
DX: R06.02 Shortness of breath (principal); J91.0 Malignant pleural effusion

== ENCOUNTER → 2016-10-21 | Outpatient (CLI) | payer MEDICARE ==
[~2016-10-21] VITALS: Ht 180.3 cm; Wt 81.2 kg
[~2016-10-21] MED LIST changes: +SODIUM BICARBONATE 8.4% INJ 50MEQ 50 ML VIAL As Ordered ONE; +SODIUM BICARBONATE 8.4% INJ 50MEQ 50 ML VIAL IV ONE
[2016-10-21 15:25] VITALS: BP 122/70
--- NOTE | 2016-10-21 16:02 | REP ---
Clinical: Status post thoracentesis. Comparison: 10/20/2016. Findings: Right lower lobe opacity suggesting effusion and underlying consolidations are similar to prior examination. No obvious pneumothorax. Left hemithorax relatively clear. Impression: Right mid to lower lobe opacities similar to prior examination. No pneumothorax. No new acute process identified. Signed by Kg Cruz MD 10/21/2016 03:52 P
--- NOTE | 2016-10-21 18:18 | RO ---
DATE OF PROCEDURE: 10/21/2016 PREOPERATIVE DIAGNOSIS: Right pleural effusion. POSTOPERATIVE DIAGNOSIS: Right pleural effusion. PROCEDURE PERFORMED: Right tube thoracostomy with drainage of 1800 mL of yellow fluid. SURGEON: Mario Sanchez DO MARKETING SERVICES MANAGER: ANESTHESIA: COMPLICATIONS: None. The patient was seen and the procedure explained to the patient as were all of the possible complications pertaining thereto. A written and informed consent were obtained and placed on chart. The patient was placed in a seated upright position. The interspace between ribs 6 and 7 on the posterior axillary line were prepped with Betadine, draped in a sterile fashion. A 25-gauge needle was used to raise a skin wheal of 1% lidocaine buffered with bicarbonate. Thereafter, a 17-gauge introducer needle was placed in through the skin and into the pleural space. Free return of pleural fluid was appreciated. A vascular tip guidewire was advanced. A small incision made adjacent to the guidewire and a 14 argyle thoracostomy tube placed over the guidewire into the right pleural space directed to the right costophrenic angle. The wire was removed and the tube connected to drainage system. 1800 mL of yellow fluid were drained without difficulty. When no further fluid could be obtained, the tube was removed. A sterile dressing was applied. The patient tolerated procedure well and suffered no apparent complication. Postprocedure chest x-ray is pending. INDICATIONS PROCEDURE PERFORMED With sequential and [id number] copy to Dr. Gandhi medical oncology and Dr. Ayse Choudhary [facility]
== END | disposition home or self-care (01) ==
LOC: M OPP 14:01
PROVIDERS: ATTEND Internal Medicine Pulmonary Disease
DX: J90 Pleural effusion, not elsewhere classified (principal); R09.02 Hypoxemia; R06.00 Dyspnea, unspecified; R05 Cough; R91.8 Other nonspecific abnormal finding of lung field; F17.210 Nicotine dependence, cigarettes, uncomplicated; J44.9 Chronic obstructive pulmonary disease, unspecified; I48.91 Unspecified atrial fibrillation; I10 Essential (primary) hypertension; I50.9 Heart failure, unspecified; Z88.8 Allergy status to other drugs, medicaments and biological substances; Z91.041 Radiographic dye allergy status; Z79.01 Long term (current) use of anticoagulants; Z79.899 Other long term (current) drug therapy

== ENCOUNTER 2016-10-23 16:33 | Emergency (ER) | payer MEDICARE ==
[~2016-10-23] VITALS: Ht 180.3 cm; Wt 79.4 kg
[~2016-10-23 16:33] MED LIST changes: -CAPE1TAB PO; -IPRASOL4 INH; -NYST50SS SS; -PROBCAP14 PO; -PROC10TA PO; -XELO150T PO; -ZOFR20TA PO; -[UNRECOGNIZED DRUG - CODE] IV
[2016-10-23] MEDS ORDERED: IPRASOL4 INH (17:19)
[2016-10-23 17:26] LABS: BASO % 0.3 % (0.0-1.0); EOS # 0.1 K/mm3 (0.0-0.50); EOS % 0.7 % (0.0-3.0); LARGE UNSTAINED CELL # 0.1 K/mm3 (0.0-0.4); LARGE UNSTAINED CELL % 0.5 % (0.0-4.0); LYMPH # 0.4 K/mm3 (1.5-4.5); LYMPH % 2.7 % (24.0-44.0); MEAN CORPUSCULAR HGB CONC 33.2 g/dl (32.0-36.5); MEAN CORPUSCULAR VOLUME 87.4 fl (80.0-96.0); MONO # 0.4 K/mm3 (0.0-0.8); MONO % 2.7 % (0.0-5.0); NEUTROPHILS # 13.1 K/mm3 (1.8-7.7); PLATELET COUNT, AUTOMATED 311 k/mm3 (150-450); RED CELL DISTRIBUTION WIDTH 13.7 % (11.5-14.5)
[2016-10-23 17:32] LABS: INR 1.61
[2016-10-23 17:50] LABS: ANION GAP 8 MEQ/L (8-16); BLOOD UREA NITROGEN 27 MG/DL (7-18); CALCIUM LEVEL 8.7 MG/DL (8.8-10.2); CARBON DIOXIDE LEVEL 36 MEQ/L (21-32); CHLORIDE LEVEL 91 MEQ/L (98-107); CREATININE FOR GFR 0.67 MG/DL (0.70-1.30); GLOMERULAR FILTRATION RATE > 60.0 (>42); GLUCOSE, FASTING 138 MG/DL (83-110); POTASSIUM SERUM 3.9 MEQ/L (3.5-5.1); SODIUM LEVEL 135 MEQ/L (136-145)
[2016-10-23 18:39] VITALS: BP 128/77
[2016-10-23 18:55] LABS: BF DIFF IF INDICATED? YES (NO); RBC PLEURAL FLUID 69 (<10mm3 cells/uL); TNC PLEURAL FLUID 1402 cells/uL (0-20)
--- NOTE | 2016-10-23 19:22 | RO ---
DATE OF PROCEDURE: 10/23/2016 PREOPERATIVE DIAGNOSIS: Right pleural effusion and shortness of breath. POSTOPERATIVE DIAGNOSIS: Right pleural effusion and shortness of breath. PROCEDURE: Right ultrasound-guided thoracentesis. SURGEON: Dr. Kris Lacy PUNCH PRESS FEEDER: None. ANESTHESIA: 1% lidocaine. HISTORY: The patient recently had a thoracentesis on Wednesday. He felt significant improvement after the thoracentesis and was able to sleep for the first time in a long time. However, he slowly became short of breath the following day and today he presents with significant increase in shortness of breath and reaccumulation of the majority of the pleural effusion. He is tachycardiac but is able to speak. DESCRIPTION OF PROCEDURE: After informed consent was reviewed with the patient in the emergency room (ER), he was placed in the sitting tripod position. A time-out was performed with two patient identifiers, identifying correct site, correct procedure. The largest fluid collection was marked under ultrasound guidance. Chlorhexidine was used to clean the chest wall. After a sterile barrier was placed, 1% lidocaine was introduced subcutaneously down to level of the pleura. A rossy in the skin was made and the Arrow trocar was then advanced into the pleural space with return of reddish-clear fluid. A total of 900 mL of pleural fluid was removed. Some of this fluid was sent for culture, although this is a known malignant pleural effusion. After drainage had stopped, the catheter was removed under exhalation. A Band-Aid was placed over the site. I performed re-ultrasound of the chest, and there was no significant remaining fluid that was obtainable. The patient expressed improvement in his breathing. There were no observed complications. The patient was sent home from the emergency room.
[2016-10-23 20:48] LABS: CC BF DIFF EXAM CYTOCENTRIFUGE
== END 2016-10-23 18:52 | disposition home or self-care (01) ==
LOC: M ED 16:58
DX: C34.90 Malignant neoplasm of unspecified part of unspecified bronchus or lung (principal); J91.0 Malignant pleural effusion; R06.02 Shortness of breath; J44.9 Chronic obstructive pulmonary disease, unspecified; I10 Essential (primary) hypertension; Z87.891 Personal history of nicotine dependence; Z79.899 Other long term (current) drug therapy; Z88.8 Allergy status to other drugs, medicaments and biological substances

== ENCOUNTER → 2016-10-23 | Outpatient (CLI) | payer MEDICARE ==
[~2016-10-23] MED LIST changes: -SODIUM BICARBONATE 8.4% INJ 50MEQ 50 ML VIAL As Ordered ONE; -SODIUM BICARBONATE 8.4% INJ 50MEQ 50 ML VIAL IV ONE
--- NOTE | 2016-10-23 15:07 | REP ---
Clinical: Lung cancer. Status post thoracentesis. Technique: PA and lateral. Comparison: 10/21/2016. Findings: Large consolidation/infiltrate involving the right hemithorax with subtle patchy air space disease involving the left lower lobe are similar to prior examination. No obvious pneumothorax. Impression: Consolidation and opacity in the right lobe and subtle left basilar densities similar to prior examination. Signed by Kg Cruz MD 10/23/2016 02:59 P
== END ==
LOC: M LRY 14:19
PROVIDERS: ATTEND Internal Medicine Pulmonary Disease
DX: R06.02 Shortness of breath (principal); J91.0 Malignant pleural effusion

== ENCOUNTER 2016-10-27 15:30 | Inpatient (IN) | payer MEDICARE ==
[~2016-10-27] VITALS: Ht 180.3 cm; Wt 85.7 kg
[~2016-10-27 15:30] MED LIST changes: +IPRASOL4 INH
[2016-10-27] MEDS ORDERED: [UNRECOGNIZED DRUG - CODE] IV (15:55)
[2016-10-27] MEDS ORDERED: XELO150T PO (15:55)
--- NOTE | 2016-10-27 16:25 | REP ---
Portable chest, 04:05 p.m.: Comparisons are 10/23/2016, 10/21/2016 and 10/20/2016. There is complete opacification of the entire right hemithorax compatible with a large right pleural effusion and complete collapse of the right lung. There is no mediastinal shift. The left lung is clear. Cardiac size cannot be assessed as the right cardiac margin is obscured. There is chronic impingement of the right shoulder. Impression: Large right pleural effusion with complete opacification of the entire right hemithorax. Signed by Anatoly Avila MD 10/27/2016 04:17 P
[2016-10-27] MEDS ORDERED: ACETAMINOPHEN TAB 650MG DOSE (2X325MG) PO PRN (17:30)
[2016-10-27] MEDS ORDERED: methylPREDNISolone INJ 125 MG/2 ML VIAL (J2930) IV ONE (17:30)
--- NOTE | 2016-10-27 17:30 | REP ---
CT study of the chest without IV contrast: History: Shortness of breath. Comparison is made with today's chest x-ray. Comparison CT study is from 10/09/2016. The comparison chest CT showed bulky right hilar and mediastinal adenopathy with collapse and consolidation in the right middle lobe and lower lobe and a small to moderate right pleural effusion. CT findings: There is a small amount of right pleural fluid surrounding the right upper lobe and posterior to the right lower lobe. However, the bulk of the opacification in the right lung is due to atelectasis and consolidation. There is abrupt amputation of the air column in the right lower lobe bronchus and to a lesser extent in the right upper lobe bronchus consistent with mucous plugging and/or fluid or neoplastic involvement. There are small patches of aeration in an otherwise completely opacified and atelectatic right lung. On the left are multiple pulmonary nodules scattered throughout the upper and lower lobes. These are essentially unchanged from the 10/09/2016 study. Mediastinal lymphadenopathy is again noted essentially unchanged. There is some celiac axis upper abdominal lymphadenopathy. This is more pronounced. Impression: Nearly complete opacification right hemithorax due to progressive atelectasis and consolidation in the right lung. A small amount of right pleural fluid is also visible. The endobronchial air column is amputated centrally in the lower lobe and upper lobe on the right side consistent with inspissated mucoid material and/or neoplastic involvement. Mediastinal adenopathy and upper abdominal adenopathy are again seen. Upper abdominal lymph nodes are larger than on the recent prior study 10/09/2016. Multiple pulmonary nodules are seen essentially unchanged. Signed by Everardo Acevedo MD 10/27/2016 06:07 P
--- NOTE | 2016-10-27 17:36 | RO ---
DATE OF PROCEDURE: 10/27/2016 PREPROCEDURE DIAGNOSIS: Right pleural effusion. POSTPROCEDURE DIAGNOSIS: Right pleural effusion. OPERATIVE PROCEDURE: Right ultrasound-guided thoracentesis. SURGEON: Kris Lacy DO REAL ESTATE INVESTMENT ANALYST: None. ANESTHESIA: 1% lidocaine. CONSENT: Consent was signed and placed in the chart. DESCRIPTION OF PROCEDURE: Time-out was performed identifying two patient identifiers, correct side, correct procedure. The right hemithorax was prepped with chlorhexidine and a sterile barrier. 1% lidocaine was then instilled subcutaneously down to the level of the pleura. There was return of serosanguineous fluid. After the needle was removed, a rossy in the skin was made and the Arrow trocar was advanced into the pleural space. The catheter was advanced over the trocar and the trocar was removed. I withdrew 800 mL of red-tinged serosanguineous fluid with some proteinaceous material. The procedure was stopped due to decreased drainage. There were no clue observed complications and a Band-Aid was placed over the site. I re-ultrasounded the chest. Because of the findings on the chest x-ray I expected there to be a larger amount of fluid return. There was no posterior pockets of fluid. I have sent the patient for a chest CT and will await the results of this testing. There are no observed complications. SHAMAR
[2016-10-27 17:55] LABS: ABG BASE EXCESS 9.7 (-2.0-2.0); ABG HCO3 36.9 MEQ/L (22.0-26.0); ABG STANDARD HCO3 33.3 MEQ/L (22.0-26.0); ABG TOTAL CO2 38.9 MEQ/L (23.0-31.0); ABG pH (ARTERIAL) 7.382 UNITS (7.350-7.450)
[2016-10-27 17:56] LABS: ABG PARTIAL PRESSURE CO2 63.6 mmHg (35.0-45.0)
[2016-10-27] MEDS: cefTRIAXone SOD 2 GM in D5W MINI-BAG PLUS 50 ML IV SCH (18:03)
[2016-10-27 18:19] LABS: BASO % 0.1 % (0.0-1.0); EOS % 0.2 % (0.0-3.0); LARGE UNSTAINED CELL # 0.1 K/mm3 (0.0-0.4); LARGE UNSTAINED CELL % 0.9 % (0.0-4.0); LYMPH # 0.4 K/mm3 (1.5-4.5); LYMPH % 2.1 % (24.0-44.0); MEAN CORPUSCULAR HEMOGLOBIN 28.5 pg (27.0-33.0); MEAN CORPUSCULAR HGB CONC 32.4 g/dl (32.0-36.5); MONO # 0.8 K/mm3 (0.0-0.8); MONO % 5.5 % (0.0-5.0); NEUTROPHILS # 13.4 K/mm3 (1.8-7.7); NEUTROPHILS % 91.1 % (36.0-66.0); PLATELET COUNT, AUTOMATED 270 k/mm3 (150-450); RED CELL DISTRIBUTION WIDTH 13.6 % (11.5-14.5); WHITE BLOOD COUNT 14.7 K/mm3 (4.0-10.0)
[2016-10-27 18:21] LABS: INR 1.01
[2016-10-27] MEDS: IPRATROPIUM 0.5MG/ALBUTEROL 2.5MG INH SOL UD 3ML (DUONEB)(J7620) NEB SCH (18:24)
[2016-10-27] MEDS ORDERED: CAPE1TAB PO (18:27)
[2016-10-27] MEDS ORDERED: PROC10TA PO (18:30)
[2016-10-27] MEDS ORDERED: ZOFR20TA PO (18:30)
[2016-10-27] MEDS ORDERED: NYST50SS SS (18:30)
[2016-10-27] MEDS ORDERED: PROBCAP14 PO (18:30)
[2016-10-27] MEDS ORDERED: AMLO10CA PO (18:30)
[2016-10-27 18:36] LABS: ALBUMIN 2.4 GM/DL (3.2-5.2); ALBUMIN/GLOBULIN RATIO 0.69 (1.00-1.93); ALKALINE PHOSPHATASE 105 U/L (45-117); ALT/SGPT 32 U/L (12-78); ANION GAP 7 MEQ/L (8-16); AST/SGOT 23 U/L (15-37); BILIRUBIN,DIRECT 0.1 MG/DL (0.0-0.2); BILIRUBIN,TOTAL 0.3 MG/DL (0.2-1.0); BLOOD UREA NITROGEN 39 MG/DL (7-18); CALCIUM LEVEL 8.9 MG/DL (8.8-10.2); CARBON DIOXIDE LEVEL 37 MEQ/L (21-32); CHLORIDE LEVEL 89 MEQ/L (98-107); CREATININE FOR GFR 0.87 MG/DL (0.70-1.30); GLOMERULAR FILTRATION RATE > 60.0 (>42); GLUCOSE, FASTING 105 MG/DL (83-110); POTASSIUM SERUM 4.4 MEQ/L (3.5-5.1); SODIUM LEVEL 133 MEQ/L (136-145); TOTAL PROTEIN 5.9 GM/DL (6.4-8.2)
[2016-10-27 19:57] VITALS: BP 103/59
[2016-10-27] MEDS ORDERED: MORPHINE 2 MG/ML 1ML SYRINGE As Ordered ONE (19:59)
[2016-10-27 20:09] VITALS: BP 100/61
[2016-10-27] MEDS ORDERED: MORPHINE 2 MG/ML 1ML SYRINGE IV ONE (20:45)
[2016-10-27] MEDS: ALBUTEROL SULFATE 2.5 MG/0.5 ML INH NEB SOLN INH PRN (20:59)
[2016-10-27 21:00] VITALS: BP 102/71
[2016-10-27] MEDS: VANCOMYCIN HCL 1,000 MG, VIAL MATE ADAPTER 1 EACH in D5W 250 ML IV SCH (21:01)
[2016-10-27] MEDS: DOCUSATE SODIUM 100 MG CAP PO SCH (21:01)
[2016-10-27] MEDS: HEPARIN SOD (PORCINE) 5000 UNITS/ML VIAL SC SCH (21:02)
--- NOTE | 2016-10-27 21:04 | PHACANCOPD ---
PHARMACY VANCOMYCIN DOSING Pt Demographics Demographics Patient Age:71 , Weight:79.500 , Gender: male Adjusted Body Weight Date: 10/27/16, Adjusted Body Weight: Kg Events Past 24 Hours Events Past 24 Hours: YES: Elevation in WBC Vancomycin Vancomycin indication: life threatening pneumonia Vancomycin Target Ranges: 15-20 mcg/ml Vancomycin Load Y/N: Yes Load Dose Date Time Vancomycin Load Dose: 1750mg Date: 10/27/16 Time: 2100 Vancomycin Dose Date: 10/27/16. Current Vancomycin Dose: [1g IV Q12H] Intermittent Dosing?: No Labs Labs Item Value Date Time White Blood Count 14.7 K/mm3 H 10/27/16 1801 Blood Urea Nitrogen 39 MG/DL H 10/27/16 1801 Creatinine 0.87 MG/DL 10/27/16 1801 Micro Microbiology 10/27/16 Blood Culture, Received Pending Creatinine Clearance Date:10/27/16. Estimated Creatinine Clearance: ~[73.2ml/min]. Pending Labs Vancomycin trough scheduled 10/29/16 @ 0800 Assessment and Plan Maintaining Current Dose?: Yes Reason for dose change: No Dose Change Pharmacist Note Pharmacist Note Date: 10/27/16. Pharmacist note: Day #1 empiric IV azithromycin, IV rocephin, and IV vancomycin - initiated with a 1750mg loading dose, followed by a maintenance regimen of 1g IV Q12H for the treatment of pneumonia - aiming for a goal trough of 15-20mcg/ml. WBC, BUN, pulse, and RR are currently elevated, and the patient is afebrile. Pulse ox is reduced, and the patient is being maintained on a high flow oxygen mask. 10/27/[address] revealed right lung consolidation. No PMH of MRSA or vanco use here at [facility], and blood cultures are pending. A vancomycin trough has been scheduled 10/29/16 @ 0800, prior to the 4th dose. We will continue to monitor and make adjustments as needed. [facility] Oct 27, 2016 21:04
[2016-10-27 22:00] VITALS: BP 106/75
[2016-10-27] MEDS ORDERED: VANCOMYCIN HCL 750 MG, VIAL MATE ADAPTER 1 EACH in D5W 250 ML IV ONE (22:00)
[2016-10-27] MEDS: ADVAIR DISKUS 500/50 INH PWD INH SCH (22:00)
--- NOTE | 2016-10-27 22:23 | HPE ---
DATE OF ADMISSION: 10/27/2016 ADMISSION DIAGNOSIS: Pneumonia. HISTORY OF PRESENT ILLNESS: Mr. 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 He has been having recurrent pleural effusions, presented to the emergency room this past Wednesday were I performed a thoracentesis with removal of 800 mL of fluid. He had significant improvement from a respiratory status. However, he presented today to the emergency room with significant increased shortness of breath, unable to sleep at night, stating he just feels awful. He has also had audible rhonchi from across the room. He believes he filled up again with fluid. A chest x-ray was performed at bedside in the emergency room showing total whiteout of the right lung. I therefore performed a bedside ultrasound and thoracentesis with removal of approximately 800 mL. There was decreased fluid returned after that. Due to my suspicion of possible right mainstem obstruction, I performed a chest CT. The chest CT did show significant infiltrate throughout the entire lung field with narrowing of the right mainstem bronchus. The patient did not have significant improvement of his shortness of breath after the thoracentesis. I therefore admitted him for management of postobstructive pneumonia. He had no fevers. He states he has been coughing, but unable to bring anything up. He has been weak, tired and extremely short of breath. He has orthopneic. He is having chest discomfort stating on the right side, that does not radiate. It did become worse after the thoracentesis. PAST MEDICAL HISTORY: 1. Atrial fibrillation, currently not on anticoagulation due to repeated thoracentesis. 2. Hypertension. 3. Lung mass with pleural effusion thought to be metastatic GI adenocarcinoma; initiated chemotherapy with cisplatin and Xeloda. 4. Hyperlipidemia. 5. Chronic obstructive pulmonary disease by clinical history. 6. Suspected sleep apnea. 7. Nicotine dependence. 8. Left total knee replacement. 9. Carpal tunnel repair bilaterally. 10. Ulnar nerve transposition. HOME MEDICATIONS: - Ventolin HFA at bedtime every 4 hours as needed shortness of breath. - Amlodipine one by mouth every pm. - Atenolol 25 mg by mouth every pm - capecitabine 5 tablets by mouth twice a day - Cisplatin 100 mg IV every 3 weeks, last dose given on Wednesday. - Fish oil 2000 mg by mouth every pm - Lasix 40 mg by mouth daily - Guaifenesin 1200 mg by mouth every pm - Nystatin 5 mL swish and swallow four times a day - ondansetron 4 mg by mouth every 4 hours as needed vomiting - Probiotic 2 capsules by mouth every pm. - Prochlorperazine 10 mg by mouth three times a day as needed nausea, vomiting - Ranitidine 2 tablets by mouth every pm - Advair 250/50 1 inhalation twice a day - tiotropium 1 inhalation daily ALLERGIES: APIXABAN. DABIGATRAN. RIVAROXABAN. 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 Is to Snow Boateng who he identifies as his healthcare proxy. She is a retired nurse. No significant alcohol use. FAMILY HISTORY: Unremarkable, and does not contribute to his current clinical situation. REVIEW OF SYSTEMS: General: The patient denies night sweats, fever, chills, has had some weight loss. HEENT: Complains of thirst. No epistaxis. No change in vision. No difficulty swallowing. Pulmonary: No pleurisy except for immediately after thoracentesis. No hemoptysis. No history of tuberculosis, tuberculosis exposures. GI: No nausea, vomiting, diarrhea or blood in stool. : No pain or burning with urination. No hematuria or nocturia. No history of nephrolithiasis. Cardiac: No history of anginal symptoms. No history of coronary artery disease. He does have atrial fibrillation. He has had no anginal symptoms or symptoms of claudication. He does have lower extremity edema. Neuro: No symptoms of stroke, seizure and has not had significant head trauma. No dizziness, lightheadedness or difficulty with balance. No unilateral weakness. Skin: No rash, jaundice, bruising. Psychiatric: No depression, anxiety or suicidal ideation. Allergy/immunology: No history of seasonal allergies or immunodeficiencies. Sleep symptoms: The patient has excessive daytime fatigue; has not been officially worked up for sleep apnea. No snoring or witnessed apneas. PHYSICAL EXAMINATION: Temperature is 97.6, pulse is 100 irregular. Respiratory rate is 20, blood pressure is 118/81 with a mean arterial pressure of 93, oxygen saturation 90% on 3 liters. General: The patient is visibly dyspneic, has shortness of breath with conversation. He is unable to lie in a supine position. He has shortness of breath sitting at any angle less than 90 degrees. HEENT: Sclerae clear and anicteric. Pupils are equal, reactive to light. Mucous membranes are moist without lesions. Tongue is midline. He is edentulous. Posterior pharynx is without erythema or exudate. Neck is supple. No tracheal deviation or mass and jugular venous pressure is elevated. NECK: No cervical, supraclavicular or axillary adenopathy. Cardiac: Very distant heart sounds, irregular, S1-S2 without audible murmur, rub or gallop. Point of maximal impulse (PMI) is difficult to palpate given his barrel-chest. Pulmonary: Very poor air entry on the right with no auscultation of air entry on the right. There is dullness to percussion of the lower one-third of the posterior lung field. There is diffuse rhonchi through both lung syed. However, more prominent on the left due to better air entry. At this point, in time he is not using any accessory muscle use. Abdomen: Soft, nontender, nondistended. No discernible hepatosplenomegaly. No masses or hernia. Extremities: He has pitting edema to his mid calf. No cyanosis. Skin: Pale without rashes, jaundice or bruising. Musculoskeletal: He has significant muscle wasting. He has wasting of the thenar eminence bilaterally. There is no evidence of joint effusion or fracture. Neurologic: No unilateral weakness, tremor or asterixis. LABS: Laboratory evaluation shows an arterial blood gas of 738, 63.6, pAO2 of 67 on 3 liters of oxygen. White blood cell count is elevated at 14.7, hemoglobin is low at 11.8 with a platelet count of 278, neutrophilia of 91.1. His chemistry panel is still pending along with his coagulation studies. He has blood cultures that are also pending. Fluid culture from October 23 showed no organisms. IMAGING STUDIES: Chest x-ray 10/27/2016 prior to the thoracentesis shows complete whiteout of the right lung field. Chest CT after thoracentesis shows very little pleural effusion, but continued whiteout of the entire right upper, right middle and right lower lobe most likely from postobstructive pneumonia. There is significant narrowing of the right mainstem bronchus from surrounding tumor. The left mainstem bronchus is patent with minimal peripheral infiltrate in the left upper lobe lingula and a few nodules in the left base. There is a very small pericardial effusion that does not appear to be causing any compression. The right ventricle and right atrium appear to be enlarged. There is calcification of the aorta and coronary arteries. IMPRESSION: 1. Postobstructive pneumonia. Will initiate ceftriaxone and azithromycin, chest physical therapy (PT). Will discuss with radiation oncology tomorrow, the possibility of radiating his chest. I am attempting to get a hold of medical oncology today to see if it is recommended to hold Xeloda in the face of active infection. 2. Pleural effusion, drained at bedside. There is minimal pleural effusion remaining, therefore, I do not believe he should have a PleurX catheter placed at this point in time, especially given the severity of his pneumonia and right mainstem obstruction. 3. Lung mass. I have started IV steroids. As stated above will consult radiation oncology in the morning. 4. Hypoxia. I have increased his oxygen to 3 liters. Will continue oxygen to maintain oxygen saturation greater than 90%. 5. Chronic hypoxic hypercarbic respiratory failure. Appears to be compensated based on arterial blood gas currently. Will continue to monitor for respiratory decline. 6. Abnormal CT. Management as mentioned above. 7. Atrial fibrillation. Currently not on anticoagulation due to need for recurrent thoracentesis. 8. Metastatic adenocarcinoma thought to be from the GI tract. Again, will discuss with medical oncology the need for continued chemotherapy in the face of active infection. 9. Hypertension. Currently I have held his blood pressure medications as is blood pressure is lower than usual. Will continue to monitor for hypertension. 10. Chronic obstructive pulmonary disease (COPD). On clinical grounds will continue Advair and Spriva. 11. Probable cor pulmonale with lower extremity edema. Will monitor for the need for diuresis and maintain adequate blood pressure. 12. GI prophylaxis with Protonix. 13. Deep venous thrombosis (DVT) prophylaxis with heparin, thromboembolism deterrents (TEDs) and [place] as he is at high risk for development of DVT given his hypoxia, shortness of breath and history of malignancy. Advance directives were addressed with the patient and at bedside. He has identified Snow Boateng as his healthcare proxy. He is DO NOT RESUSCITATE (DNR), but wants everything done up until the point of CPR.
[2016-10-27 23:00] VITALS: BP 110/71
[2016-10-27] MEDS: AZITHROMYCIN INJ 500 MG, VIAL MATE ADAPTER 1 EACH in D5W 250 ML IV SCH (23:53)
[2016-10-27] MEDS: PERCOCET 5MG/325MG TAB PO PRN (23:55)
[2016-10-28] VITALS (21 sets, daily range): BP systolic 91–134; BP diastolic 53–74; O2SAT 92
[2016-10-28 05:05] LABS: MEAN CORPUSCULAR VOLUME 87.8 fl (80.0-96.0); RED CELL DISTRIBUTION WIDTH 13.8 % (11.5-14.5); WHITE BLOOD COUNT 15.2 K/mm3 (4.0-10.0)
[2016-10-28] MEDS: dexameTHASONE 20 MG/5 ML VIAL (J1100) IV SCH ×2 (05:10→18:02)
[2016-10-28] MEDS: HEPARIN SOD (PORCINE) 5000 UNITS/ML VIAL SC SCH ×3 (05:11→21:27)
[2016-10-28 05:20] LABS: ALBUMIN 2.3 GM/DL (3.2-5.2); ALBUMIN/GLOBULIN RATIO 0.68 (1.00-1.93); ALKALINE PHOSPHATASE 89 U/L (45-117); ALT/SGPT 27 U/L (12-78); ANION GAP 3 MEQ/L (8-16); AST/SGOT 16 U/L (15-37); BILIRUBIN,TOTAL 0.3 MG/DL (0.2-1.0); BLOOD UREA NITROGEN 41 MG/DL (7-18); CALCIUM LEVEL 8.5 MG/DL (8.8-10.2); CARBON DIOXIDE LEVEL 37 MEQ/L (21-32); CHLORIDE LEVEL 88 MEQ/L (98-107); CREATININE FOR GFR 0.97 MG/DL (0.70-1.30); GLOMERULAR FILTRATION RATE > 60.0 (>42); GLUCOSE, FASTING 150 MG/DL (83-110); POTASSIUM SERUM 4.4 MEQ/L (3.5-5.1); SODIUM LEVEL 128 MEQ/L (136-145); TOTAL PROTEIN 5.7 GM/DL (6.4-8.2)
[2016-10-28] MEDS: ADVAIR DISKUS 500/50 INH PWD INH SCH ×2 (07:12→19:34)
[2016-10-28] MEDS: TIOTROPIUM INHALER/CAPSULE (SPIRIVA) INH SCH (07:13)
[2016-10-28] MEDS: IPRATROPIUM 0.5MG/ALBUTEROL 2.5MG INH SOL UD 3ML (DUONEB)(J7620) NEB SCH ×4 (07:35→19:18)
--- NOTE | 2016-10-28 07:57 | REP ---
Portable chest, single AP view, the patient semi upright: Comparisons are the portable chest 10/27/[address] of 10/27/2016. There is aeration of a portion of the right upper lobe as an interval change from the complete opacification of the right hemithorax on 10/27/2016. The mid and inferior right lung remain completely opacified. Left lung is clear. Cardiac size cannot be assessed as the right cardiac margin is obscured. Impression: Interval aeration of the right upper lobe. Signed by Anatoly Avila MD 10/28/2016 07:48 A
[2016-10-28] MEDS: DOCUSATE SODIUM 100 MG CAP PO SCH ×2 (08:16→21:26)
[2016-10-28] MEDS: VANCOMYCIN HCL 1,000 MG, VIAL MATE ADAPTER 1 EACH in D5W 250 ML IV SCH ×2 (08:16→21:27)
[2016-10-28] MEDS: PANTOPRAZOLE 40MG TAB (PROTONIX) PO SCH (08:16)
[2016-10-28 09:29] LABS: OSMOLALITY URINE 380 MOSM/KG (500-800)
[2016-10-28] MEDS: cefTRIAXone SOD 2 GM in D5W MINI-BAG PLUS 50 ML IV SCH (18:02)
[2016-10-28] MEDS: NYSTATIN 500,000 U/5 ML SUSP UDC PO SCH (21:26)
[2016-10-28] MEDS: LACTOBACILLUS ACIDOPHILUS CAP (BACID) PO SCH (21:26)
[2016-10-28] MEDS: AZITHROMYCIN INJ 500 MG, VIAL MATE ADAPTER 1 EACH in D5W 250 ML IV SCH (23:40)
[2016-10-29] VITALS (14 sets, daily range): BP systolic 87–131; BP diastolic 54–79; O2SAT 95
[2016-10-29] MEDS: HEPARIN SOD (PORCINE) 5000 UNITS/ML VIAL SC SCH ×3 (05:06→21:45)
[2016-10-29] MEDS: dexameTHASONE 4 MG/ML 1ML VIAL (J1100) IV SCH ×2 (05:06→17:26)
[2016-10-29 05:09] LABS: MEAN CORPUSCULAR HEMOGLOBIN 29.1 pg (27.0-33.0); MEAN CORPUSCULAR HGB CONC 33.7 g/dl (32.0-36.5); MEAN CORPUSCULAR VOLUME 86.5 fl (80.0-96.0); RED CELL DISTRIBUTION WIDTH 13.7 % (11.5-14.5); WHITE BLOOD COUNT 14.1 K/mm3 (4.0-10.0)
[2016-10-29 05:31] LABS: ALBUMIN 2.3 GM/DL (3.2-5.2); ALBUMIN/GLOBULIN RATIO 0.66 (1.00-1.93); ALKALINE PHOSPHATASE 90 U/L (45-117); ALT/SGPT 29 U/L (12-78); ANION GAP 5 MEQ/L (8-16); AST/SGOT 18 U/L (15-37); BILIRUBIN,TOTAL 0.3 MG/DL (0.2-1.0); BLOOD UREA NITROGEN 50 MG/DL (7-18); CARBON DIOXIDE LEVEL 36 MEQ/L (21-32); CHLORIDE LEVEL 88 MEQ/L (98-107); CREATININE FOR GFR 1.13 MG/DL (0.70-1.30); GLOMERULAR FILTRATION RATE > 60.0 (>42); GLUCOSE, FASTING 137 MG/DL (83-110); POTASSIUM SERUM 4.6 MEQ/L (3.5-5.1); SODIUM LEVEL 129 MEQ/L (136-145); TOTAL PROTEIN 5.8 GM/DL (6.4-8.2)
[2016-10-29] MEDS: TIOTROPIUM INHALER/CAPSULE (SPIRIVA) INH SCH (07:29)
[2016-10-29] MEDS: ADVAIR DISKUS 500/50 INH PWD INH SCH ×2 (07:30→20:00)
[2016-10-29] MEDS: IPRATROPIUM 0.5MG/ALBUTEROL 2.5MG INH SOL UD 3ML (DUONEB)(J7620) NEB SCH ×3 (07:30→17:10)
--- NOTE | 2016-10-29 08:04 | REP ---
Portable chest, 10/29/2016, 06:56 a.m.: Comparison is 2016. There is complete opacification of the right samanta thorax. In the aeration of the right upper lobe noted on the comparison study is no longer present. Left lung remains clear. Signed by Anatoly Avila MD 10/29/2016 07:55 A
[2016-10-29] MEDS: NYSTATIN 500,000 U/5 ML SUSP UDC PO SCH ×4 (08:40→21:44)
[2016-10-29] MEDS: LACTOBACILLUS ACIDOPHILUS CAP (BACID) PO SCH ×2 (08:41→21:44)
[2016-10-29] MEDS: PANTOPRAZOLE 40MG TAB (PROTONIX) PO SCH (08:41)
[2016-10-29] MEDS: DOCUSATE SODIUM 100 MG CAP PO SCH ×2 (08:41→21:44)
[2016-10-29] MEDS ORDERED: FUROSEMIDE 40 MG TAB PO ONE (09:00)
[2016-10-29] MEDS: PERCOCET 5MG/325MG TAB PO PRN (12:11)
[2016-10-29] MEDS ORDERED: FUROSEMIDE 100 MG/10 ML VIAL (J1940) IV ONE (12:30)
[2016-10-29] MEDS: MORPHINE 2 MG/ML 1ML SYRINGE IV PRN (13:07)
--- NOTE | 2016-10-29 14:46 | PHACANCOPD ---
PHARMACY VANCOMYCIN DOSING Pt Demographics Demographics Patient Age:71 , Weight:84.800 , Gender: male Adjusted Body Weight Date: 10/27/16, Adjusted Body Weight: Kg Events Past 24 Hours Events Past 24 Hours: NO: Change in CrCl, Dialysis, Diuretic Therapy, Elevation in WBC, Fever, Other, Pending Diagnostics, Pending Procedures Vancomycin Vancomycin indication: life threatening pneumonia Vancomycin Target Ranges: 15-20 mcg/ml Vancomycin Load Y/N: Yes Load Dose Date Time Vancomycin Load Dose: 1750mg Date: 10/27/16 Time: 2100 Vancomycin Dose Date: 10/29/16. Current Vancomycin Dose: [1gm iv q18h] Date: 10/27/16. Current Vancomycin Dose: [1g IV Q12H] Intermittent Dosing?: No Labs Labs Item Value Date Time White Blood Count 15.2 K/mm3 H 10/28/16 0441 White Blood Count 14.1 K/mm3 H 10/29/16 0445 Creatinine 0.97 MG/DL 10/28/16 0441 Creatinine 1.13 MG/DL 10/29/16 0445 Vancomycin Level Trough 21.5 UG/ML H 10/29/16 0800 Vital Signs Label Value Date Time Patient Temperature 97.9 degrees F 10/29/16 1200 Temperature Source Temporal 10/29/16 1200 Micro Microbiology 10/27/16 Blood Culture - Preliminary, Resulted No growth after 24 hours . All specim... 10/28/16 Gram Stain - Final, Resulted 10/28/16 Sputum Culture, Resulted Pending Creatinine Clearance Date:10/27/16. Estimated Creatinine Clearance: ~[73.2ml/min]. Pending Labs Vancomycin trough scheduled 10/29/16 @ 0800 Assessment and Plan Maintaining Current Dose?: No Reason for dose change: Trough too high Pharmacist Note Pharmacist Note 10/29: The patient's trough came back at 21.5 today. Due to the increase in his SCr and age he was adjusted to Vancomycin 1gm IV q18h starting at 1500 today. All of his cultures to date are negative. We will continue to monitor and make adjustments as necessary. Date: 10/27/16. Pharmacist note: Day #1 empiric IV azithromycin, IV rocephin, and IV vancomycin - initiated with a 1750mg loading dose, followed by a maintenance regimen of 1g IV Q12H for the treatment of pneumonia - aiming for a goal trough of 15-20mcg/ml. WBC, BUN, pulse, and RR are currently elevated, and the patient is afebrile. Pulse ox is reduced, and the patient is being maintained on a high flow oxygen mask. 10/27/[address] revealed right lung consolidation. No PMH of MRSA or vanco use here at [facility], and blood cultures are pending. A vancomycin trough has been scheduled 10/29/16 @ 0800, prior to the 4th dose. We will continue to monitor and make adjustments as needed. JAYA FERREIRA [facility]ARM[facility] Oct 29, 2016 14:46
[2016-10-29] MEDS ORDERED: VANCOMYCIN HCL 1,000 MG, VIAL MATE ADAPTER 1 EACH in D5W 250 ML IV SCH (15:00)
[2016-10-29] MEDS ORDERED: diphenhydrAMINE INJ 50MG/ML VIAL (J1200) IV ONE (17:15)
[2016-10-29] MEDS: cefTRIAXone SOD 2 GM in D5W MINI-BAG PLUS 50 ML IV SCH (17:26)
[2016-10-29] MEDS: AZITHROMYCIN INJ 500 MG, VIAL MATE ADAPTER 1 EACH in D5W 250 ML IV SCH (21:45)
[2016-10-30] VITALS: BP 114/59
[2016-10-30] MEDS: IPRATROPIUM 0.5MG/ALBUTEROL 2.5MG INH SOL UD 3ML (DUONEB)(J7620) NEB SCH ×5 (00:01→20:00)
[2016-10-30 04:00] VITALS: BP 107/53
[2016-10-30 04:51] LABS: MEAN CORPUSCULAR HEMOGLOBIN 29.2 pg (27.0-33.0); MEAN CORPUSCULAR HGB CONC 33.7 g/dl (32.0-36.5); MEAN CORPUSCULAR VOLUME 86.6 fl (80.0-96.0); RED CELL DISTRIBUTION WIDTH 14.1 % (11.5-14.5)
[2016-10-30 05:10] LABS: ALBUMIN 2.2 GM/DL (3.2-5.2); ALBUMIN/GLOBULIN RATIO 0.67 (1.00-1.93); BILIRUBIN,TOTAL 0.2 MG/DL (0.2-1.0); CALCIUM LEVEL 8.7 MG/DL (8.8-10.2); CREATININE FOR GFR 1.27 MG/DL (0.70-1.30); GLOMERULAR FILTRATION RATE 59.7 (>42); POTASSIUM SERUM 4.2 MEQ/L (3.5-5.1); TOTAL PROTEIN 5.5 GM/DL (6.4-8.2)
[2016-10-30] MEDS: PERCOCET 5MG/325MG TAB PO PRN (05:14)
[2016-10-30] MEDS: dexameTHASONE 4 MG/ML 1ML VIAL (J1100) IV SCH ×2 (05:14→17:04)
[2016-10-30] MEDS: HEPARIN SOD (PORCINE) 5000 UNITS/ML VIAL SC SCH ×3 (05:15→21:04)
[2016-10-30 08:00] VITALS: BP 115/62
--- NOTE | 2016-10-30 08:04 | REP ---
Portable chest, single AP view, the patient upright: Comparison is 10/29/2016. Complete opacification of the right hemithorax is again identified, unchanged. Left lung is clear. Cardiac size cannot be assessed. Signed by Anatoly Avila MD 10/30/2016 07:55 A
[2016-10-30] MEDS: ADVAIR DISKUS 500/50 INH PWD INH SCH ×2 (08:10→20:28)
[2016-10-30] MEDS: TIOTROPIUM INHALER/CAPSULE (SPIRIVA) INH SCH (08:10)
[2016-10-30] MEDS: LevoFLOXacin IV 500 MG in APPROPRIATE DILUENT 1 EA IV SCH (08:50)
[2016-10-30] MEDS: NYSTATIN 500,000 U/5 ML SUSP UDC PO SCH ×4 (08:50→21:04)
[2016-10-30] MEDS: LACTOBACILLUS ACIDOPHILUS CAP (BACID) PO SCH ×2 (08:51→21:04)
[2016-10-30] MEDS: PANTOPRAZOLE 40MG TAB (PROTONIX) PO SCH (08:51)
[2016-10-30] MEDS: DOCUSATE SODIUM 100 MG CAP PO SCH ×2 (08:51→21:04)
[2016-10-30] MEDS: cefTAZidime 2 GM in D5W MINI-BAG PLUS 100 ML IV SCH ×2 (10:41→17:03)
[2016-10-30 12:00] VITALS: BP 108/52
[2016-10-30 16:00] VITALS: BP 107/58
[2016-10-30 20:00] VITALS: BP 111/62
[2016-10-31] VITALS: BP 119/63
[2016-10-31] MEDS: cefTAZidime 2 GM in D5W MINI-BAG PLUS 100 ML IV SCH ×3 (01:01→17:05)
[2016-10-31 04:00] VITALS: BP 111/71
[2016-10-31] MEDS: ALBUTEROL SULFATE 2.5 MG/0.5 ML INH NEB SOLN INH PRN (04:23)
[2016-10-31 04:43] LABS: MEAN CORPUSCULAR HEMOGLOBIN 28.5 pg (27.0-33.0); MEAN CORPUSCULAR HGB CONC 32.4 g/dl (32.0-36.5); MEAN CORPUSCULAR VOLUME 87.9 fl (80.0-96.0); RED CELL DISTRIBUTION WIDTH 13.9 % (11.5-14.5); WHITE BLOOD COUNT 10.5 K/mm3 (4.0-10.0)
[2016-10-31 05:03] LABS: ALBUMIN 2.1 GM/DL (3.2-5.2); ALBUMIN/GLOBULIN RATIO 0.62 (1.00-1.93); ALKALINE PHOSPHATASE 85 U/L (45-117); ALT/SGPT 25 U/L (12-78); ANION GAP 7 MEQ/L (8-16); AST/SGOT 17 U/L (15-37); BILIRUBIN,TOTAL 0.2 MG/DL (0.2-1.0); BLOOD UREA NITROGEN 55 MG/DL (7-18); CALCIUM LEVEL 8.7 MG/DL (8.8-10.2); CARBON DIOXIDE LEVEL 39 MEQ/L (21-32); CHLORIDE LEVEL 91 MEQ/L (98-107); GLOMERULAR FILTRATION RATE > 60.0 (>42); GLUCOSE, FASTING 123 MG/DL (83-110); POTASSIUM SERUM 4.1 MEQ/L (3.5-5.1); SODIUM LEVEL 137 MEQ/L (136-145); TOTAL PROTEIN 5.5 GM/DL (6.4-8.2)
[2016-10-31] MEDS: HEPARIN SOD (PORCINE) 5000 UNITS/ML VIAL SC SCH ×3 (05:03→21:33)
[2016-10-31] MEDS: dexameTHASONE 4 MG/ML 1ML VIAL (J1100) IV SCH ×2 (05:03→16:09)
[2016-10-31] MEDS ORDERED: SLF 3 ML SYR IV PRN (05:30)
[2016-10-31] MEDS: TIOTROPIUM INHALER/CAPSULE (SPIRIVA) INH SCH (07:59)
[2016-10-31] MEDS: IPRATROPIUM 0.5MG/ALBUTEROL 2.5MG INH SOL UD 3ML (DUONEB)(J7620) NEB SCH ×4 (07:59→20:00)
[2016-10-31] MEDS: ADVAIR DISKUS 500/50 INH PWD INH SCH ×2 (07:59→21:03)
[2016-10-31 08:00] VITALS: BP 124/64
--- NOTE | 2016-10-31 08:57 | REP ---
AP PORTABLE CHEST: 10/31/2016 at 04:53 AM. Comparison: 10/30/2016, 10/29/2016, CT chest 10/27/2016. Clinical history: hypoxia. Findings: There is again noted to be complete opacification of the right hemithorax. I do not see a significant change with no more shift of the trachea from the midline towards the right than on the previous day's exam. Left lung with compensatory hyperinflation. Fibrotic changes and emphysema noted but it remains clear. No other change. Signed by Freddy Marcial MD 10/31/2016 08:18 P
[2016-10-31] MEDS: LACTOBACILLUS ACIDOPHILUS CAP (BACID) PO SCH ×2 (09:07→21:32)
[2016-10-31] MEDS: LevoFLOXacin IV 500 MG in APPROPRIATE DILUENT 1 EA IV SCH (09:07)
[2016-10-31] MEDS: DOCUSATE SODIUM 100 MG CAP PO SCH ×2 (09:07→21:32)
[2016-10-31] MEDS: PANTOPRAZOLE 40MG TAB (PROTONIX) PO SCH (09:07)
[2016-10-31] MEDS: NYSTATIN 500,000 U/5 ML SUSP UDC PO SCH ×4 (09:07→21:32)
[2016-10-31] MEDS: SLF 3 ML SYR IV SCH ×3 (09:08→21:33)
--- NOTE | 2016-10-31 09:34 | IPN ---
DATE: 10/31/2016 PULMONARY SERVICE DAILY PROGRESS NOTE: The patient is seen in the intensive care unit. This is hospital day #4. He is resting comfortably on 6 liters of oxygen via nasal cannula. Saturations in the mid 90s. He is experiencing cough with difficulty with expectorating sputum. Vital signs are temperature 97, maximum temperature (Tmax) for the past 24 hours 97, pulse rate 111, respirations 22, blood pressure 111/71. Oxygen saturation 93% on 6 liters of oxygen via nasal cannula. Intake and output for the past 24 hours 1685 in, 1900 out, since midnight 160 and 325 out. At bedside. he is ill appearing but reasonably comfortable, conversant. Oral and nasal mucosa are pink, moist. No stridor over the trachea. No adenopathy in the neck or jugular venous distension. Heart sounds are regular without appreciable murmurs. Breath sounds are absent over the right hemithorax. There are some large airway rhonchi appreciated over the left side. Chest is symmetric. Abdomen is soft with intact bowel sounds. Extremities show no significant edema. Pulses easily palpable. DIAGNOSTIC STUDIES: Sodium is 137, potassium 4.1, chloride 91, CO2 39, BUN is 55, creatinine is 1.1, and glucose 123. White cell count is down to 10, hemoglobin 10.1, hematocrit 31.1, platelet count 222,000. Albumin is 2.1. Chest x-ray shows total atelectasis of the right lung. Sputum gram stain showed many gram-negative bacteria with culture showing Pseudomonas sensitive to quinolones. On medications review, he is on day #4 of cefotaxime, day #4 of Levaquin. He is receiving Decadron 5 mg every 12 hours, inhaled Advair and Spiriva as well as DuoNebs on an as needed basis. The impressions are: 1. Pseudomonas pneumonia. The patient is responding to cefotaxime, Levaquin. This is day #4. If temperature and white count continue to trend favorably, we will eliminate one drug tomorrow. Chest x-ray continues to show no change in the opacity over the right hemithorax. 2. Mal clearance of secretions. I will add guaifenesin. 3. 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 The patient is on IV steroids and has received three courses of radiation therapy. Additional radiation planned for Wednesday. 4. Chronic obstructive pulmonary disease. The patient is on nebulized therapy, inhaled bronchodilators. 5. Deep venous thrombosis (DVT) and ulcer prophylaxis have been addressed.
[2016-10-31 12:00] VITALS: BP 114/58
[2016-10-31] MEDS: guaiFENesin SYRUP 200 MG/10 ML UDC PO PRN ×2 (12:41→21:32)
[2016-10-31 16:00] VITALS: BP 119/58
[2016-10-31 20:00] VITALS: BP 116/60
[2016-11-01] VITALS: BP 120/63
[2016-11-01] MEDS: cefTAZidime 2 GM in D5W MINI-BAG PLUS 100 ML IV SCH ×3 (01:02→17:10)
[2016-11-01 04:00] VITALS: BP 129/65
[2016-11-01 04:53] LABS: EOS % 0.1 % (0.0-3.0); LARGE UNSTAINED CELL # 0.1 K/mm3 (0.0-0.4); LARGE UNSTAINED CELL % 0.6 % (0.0-4.0); LYMPH # 0.5 K/mm3 (1.5-4.5); LYMPH % 4.6 % (24.0-44.0); MEAN CORPUSCULAR HEMOGLOBIN 28.6 pg (27.0-33.0); MEAN CORPUSCULAR HGB CONC 32.4 g/dl (32.0-36.5); MEAN CORPUSCULAR VOLUME 88.4 fl (80.0-96.0); MONO # 0.5 K/mm3 (0.0-0.8); MONO % 5.4 % (0.0-5.0); NEUTROPHILS # 7.9 K/mm3 (1.8-7.7); NEUTROPHILS % 89.2 % (36.0-66.0); PLATELET COUNT, AUTOMATED 235 k/mm3 (150-450); RED CELL DISTRIBUTION WIDTH 14.1 % (11.5-14.5); WHITE BLOOD COUNT 8.8 K/mm3 (4.0-10.0)
[2016-11-01] MEDS: dexameTHASONE 4 MG/ML 1ML VIAL (J1100) IV SCH ×2 (05:03→17:10)
[2016-11-01] MEDS: SLF 3 ML SYR IV SCH ×3 (05:03→21:06)
[2016-11-01] MEDS: HEPARIN SOD (PORCINE) 5000 UNITS/ML VIAL SC SCH ×3 (05:03→21:05)
[2016-11-01 05:17] LABS: ALBUMIN 2.2 GM/DL (3.2-5.2); ALBUMIN/GLOBULIN RATIO 0.69 (1.00-1.93); BILIRUBIN,TOTAL 0.3 MG/DL (0.2-1.0); CALCIUM LEVEL 8.8 MG/DL (8.8-10.2); CREATININE FOR GFR 1.29 MG/DL (0.70-1.30); GLOMERULAR FILTRATION RATE 58.6 (>42); POTASSIUM SERUM 4.2 MEQ/L (3.5-5.1); TOTAL PROTEIN 5.4 GM/DL (6.4-8.2)
[2016-11-01] MEDS: TIOTROPIUM INHALER/CAPSULE (SPIRIVA) INH SCH (06:58)
[2016-11-01] MEDS: ADVAIR DISKUS 500/50 INH PWD INH SCH ×2 (06:58→19:47)
[2016-11-01] MEDS: IPRATROPIUM 0.5MG/ALBUTEROL 2.5MG INH SOL UD 3ML (DUONEB)(J7620) NEB SCH ×4 (06:59→19:47)
[2016-11-01 08:00] VITALS: BP 132/69
--- NOTE | 2016-11-01 08:29 | REP ---
AP PORTABLE SEATED CHEST: 11/01/2016. Clinical history: Hypoxia. Comparison: Daily portable chest for the past 5 days. Findings: There is again complete opacification of the right hemithorax. There is no change or shift of the trachea from the midline. The hip is mild. Calcified slightly tortuous aortic arch and descending aorta, unchanged. The left lung is without gross infiltrate or effusion. Some fibrotic changes remain. Impression: 1. Complete opacification right hemithorax. No interval change. Signed by Freddy Marcial MD 11/01/2016 08:21 A
[2016-11-01] MEDS: DOCUSATE SODIUM 100 MG CAP PO SCH ×2 (09:35→21:05)
[2016-11-01] MEDS: NYSTATIN 500,000 U/5 ML SUSP UDC PO SCH ×4 (09:35→21:05)
[2016-11-01] MEDS: LACTOBACILLUS ACIDOPHILUS CAP (BACID) PO SCH ×2 (09:35→21:04)
[2016-11-01] MEDS: PANTOPRAZOLE 40MG TAB (PROTONIX) PO SCH (09:35)
[2016-11-01] MEDS: LevoFLOXacin IV 500 MG in APPROPRIATE DILUENT 1 EA IV SCH (09:35)
[2016-11-01 12:00] VITALS: BP 121/64
--- NOTE | 2016-11-01 13:25 | IPN ---
DATE: 11/01/2013 PULMONARY PROGRESS NOTE: The patient is seen in the intensive care unit. This is hospital day #5. He feels improved. Subjectively, his cough is more productive. The sputum is nonpurulent. His vital signs are temperature 97.7, maximum temperature (Tmax) for the past 24 hours 98, pulse rate is 104, respirations 20, blood pressure 132/69. Intake and output for the past 24 hours 1140 in, 1475 out. Since midnight 700 in, 150 out. At bedside, he is ill appearing. Oral mucosa is pink and moist. Posterior pharynx shows no erythema. There is no stridor over his trachea. No adenopathy in the neck. Jugular veins are at the sternal angle. Carotid upstroke brisk, no bruit. Heart sounds are regular without appreciable murmur. Breath sounds are absent over the right hemithorax. Hyperresonance is noted over the left hemithorax. There are no focal sounds today. Abdomen is soft and extremities show no significant edema. Peripheral pulses are palpable times four. Diagnostic studies: Sodium is 138, potassium 4.2, chloride 92, CO2 39, BUN 52, creatinine 1.6, glucose 106. White cell count is down to 8.5, hemoglobin 9.8, hematocrit 30.4, platelet count to 235,000. Chest x-ray images reviewed and shows essentially no change from yesterday. Full opacity of the right hemithorax is appreciated. On medications review, this is day #3 of ceftazidime, day #3 Levaquin. He is receiving Decadron 5 mg every 12 hours and nebulized therapy. IMPRESSION: 1. Pseudomonas pneumonia. The patient's white cell count and temperature are down. He is responding to antibiotics. 2. Mal clearance of secretions. Subjectively, this is improved but the chest x-ray remains the same. We have reviewed this with the patient and I believe if he is unable to clear secretions there may be some benefit in endoscopy to improve aeration of the right upper lobe. We will refuse his chest x-ray in the morning and determine whether bronchoscopy would be indicated at that time. 3. Adenocarcinoma of the duodenu, with metastatic disease to the lymph nodes. Radiation therapy continues. The patient has received one course of chemotherapy. 4. Chronic obstructive pulmonary disease. Will continue bronchodilator therapy. 5. Deep venous thrombosis (DVT) and ulcer prophylaxis have been written. I have updated the patient's family at bedside.
[2016-11-01 16:00] VITALS: BP 114/59
[2016-11-01 20:00] VITALS: BP 131/61
[2016-11-02] VITALS (29 sets, daily range): BP systolic 110–149; BP diastolic 59–91; O2SAT 93
[2016-11-02] MEDS: cefTAZidime 2 GM in D5W MINI-BAG PLUS 100 ML IV SCH ×2 (01:09→08:56)
[2016-11-02 05:21] LABS: ALBUMIN 2.1 GM/DL (3.2-5.2); ALBUMIN/GLOBULIN RATIO 0.6 (1.00-1.93); BILIRUBIN,TOTAL 0.3 MG/DL (0.2-1.0); CALCIUM LEVEL 8.6 MG/DL (8.8-10.2); CREATININE FOR GFR 1.31 MG/DL (0.70-1.30); GLOMERULAR FILTRATION RATE 57.6 (>42); POTASSIUM SERUM 4.2 MEQ/L (3.5-5.1); TOTAL PROTEIN 5.6 GM/DL (6.4-8.2)
[2016-11-02 05:27] LABS: MEAN CORPUSCULAR HEMOGLOBIN 29.2 pg (27.0-33.0); MEAN CORPUSCULAR VOLUME 88.7 fl (80.0-96.0); RED CELL DISTRIBUTION WIDTH 14.1 % (11.5-14.5)
[2016-11-02] MEDS: HEPARIN SOD (PORCINE) 5000 UNITS/ML VIAL SC SCH ×3 (05:40→21:00)
[2016-11-02] MEDS: dexameTHASONE 4 MG/ML 1ML VIAL (J1100) IV SCH ×2 (05:40→17:54)
[2016-11-02] MEDS: SLF 3 ML SYR IV SCH ×3 (05:40→20:48)
[2016-11-02] MEDS: TIOTROPIUM INHALER/CAPSULE (SPIRIVA) INH SCH (07:38)
[2016-11-02] MEDS: IPRATROPIUM 0.5MG/ALBUTEROL 2.5MG INH SOL UD 3ML (DUONEB)(J7620) NEB SCH ×4 (07:38→19:19)
[2016-11-02] MEDS: ADVAIR DISKUS 500/50 INH PWD INH SCH ×2 (07:38→21:35)
--- NOTE | 2016-11-02 08:00 | REP ---
AP PORTABLE CHEST: 11/02/2016. Comparison: 11/01/2016, 10/31/1969, 10/30/2016. Clinical history: hypoxia. Findings: There remains complete opacification of the right hemithorax unchanged. Compensatory hyperinflation of the left lung with some underlying fibrosis, COPD, a tortuous calcified aorta and some degenerative changes in the spine and shoulders, all stable. No interval change. Signed by Freddy Marcial MD 11/02/2016 07:52 A
[2016-11-02] MEDS: NYSTATIN 500,000 U/5 ML SUSP UDC PO SCH ×4 (08:56→20:43)
[2016-11-02] MEDS: LevoFLOXacin IV 500 MG in APPROPRIATE DILUENT 1 EA IV SCH (08:56)
[2016-11-02] MEDS: DOCUSATE SODIUM 100 MG CAP PO SCH ×2 (08:56→20:43)
[2016-11-02] MEDS: PANTOPRAZOLE 40MG TAB (PROTONIX) PO SCH (08:56)
[2016-11-02] MEDS: LACTOBACILLUS ACIDOPHILUS CAP (BACID) PO SCH ×2 (08:56→20:43)
[2016-11-02] MEDS ORDERED: MIDAZOLAM INJ 5 MG/ML VIAL (J2250) As Ordered ONE (09:39)
[2016-11-02] MEDS ORDERED: MORPHINE 2 MG/ML 1ML SYRINGE As Ordered ONE (09:39)
[2016-11-02] MEDS ORDERED: LIDOCAINE 1% MDV 20ML VIAL As Ordered ONE ×2 (09:42→09:48)
[2016-11-02] MEDS ORDERED: MORPHINE 2 MG/ML 1ML SYRINGE IV ONE (10:45)
[2016-11-02] MEDS ORDERED: MIDAZOLAM INJ 2 MG/2 ML VIAL (J2250) IV ONE (10:45)
[2016-11-02] MEDS ORDERED: LIDOCAINE 1% MDV 20ML VIAL SC ONE (11:00)
--- NOTE | 2016-11-02 12:00 | REP ---
PORTABLE CHEST: AP portable view of the chest is performed status post bronchoscopy and compared to a prior exam earlier today. There is no change since the prior exam. There is complete opacification of the right hemithorax. The left lung remains essentially clear. No pneumothorax is seen. IMPRESSION: Stable exam. Signed by Anatoly Martínez MD 11/02/2016 04:37 P
--- NOTE | 2016-11-02 12:31 | CCN ---
PULMONARY CRITICAL CARE NOTE DATE OF SERVICE: 11/02/2016 The patient is seen in the intensive care unit. Hypoxemic but oxygen requirement has improved over yesterday. He remains tachypneic. Has persistent cough and difficulty with clearing secretions. He is sleeping poorly. His temperature is 98, pulse rate 108, respirations 16, blood pressure 129/73. Intake and output (I and O) for the past 24 hours, 1790 in and 1100 out. At bedside, he is ill appearing. His oral mucosa is dry. Neck is supple. Heart sounds are irregularly irregular without appreciable murmur. Breath sounds are absent over the right hemithorax with tubular breath sounds, coarse clear over the left. There is some large airway rhonchi. Abdomen: Soft. Extremities show no significant edema at the ankle. There is some fullness at his feet. DIAGNOSTIC STUDIES: Sodium is 137, potassium 4.2, chloride 95, CO2 38, BUN 49, creatinine 1.3, glucose 114. White cell count is 9, hemoglobin 9.5, hematocrit 28.7, platelet count 229,000. Chest x-ray was reviewed, both image and report. There is essentially no change in the opacification of the right hemithorax today. MEDICATIONS REVIEW: This is day #4 of Levaquin, day #4 of ceftazidime. IMPRESSIONS: 1. Hypoxemia. The patient's oxygen need has declined over the past 24-48 hours. 2. Atelectasis of the right lung. I suspect significant mucus plugging and will arrange for fiberoptic bronchoscopy today. 3. Pseudomonas pneumonia. Will continue with quinolone antibiotic therapy. I will discontinue the cephalosporin. 4. Adenocarcinoma of the duodenum. The patient has received one course of chemotherapy and is receiving radiation therapy on a scheduled basis. 5. Chronic obstructive pulmonary disease. The patient is on maximal bronchodilator therapy. 5. Deep venous thrombosis (DVT) and ulcer prophylaxis are in place. I will update the patient's family regarding his status. Consider moving him from intensive care unit in the next 24 hours if his condition should improve following bronchoscopy.
--- NOTE | 2016-11-02 16:11 | RO ---
DATE OF PROCEDURE: 11/02/2016 PREOPERATIVE DIAGNOSIS: Atelectasis right lung. POSTOPERATIVE DIAGNOSIS: Atelectasis right lung with findings of diffuse mucous plugging, irregular mucosa in the right main bronchus and bronchus intermedius. No obstructing endobronchial lesions appreciated. PROCEDURE PERFORMED: Fiberoptic bronchoscopy with transbronchoscopic washing and removal of foreign body mucus collection. SURGEON: Dr. Mario Sanchez PROFESSIONAL NURSING TUTOR: Dr. Nish Mack ANESTHESIA: DESCRIPTION OF PROCEDURE: The patient was seen, and the procedure explained to the patient as were all of the possible complications pertaining thereto, including but not limited to bleeding, infection, medication reaction and lung collapse. An informed consent form was completed and placed in the chart. The patient was placed in a semi-erect position, the left nares was topically anesthetized with 2% Xylocaine. When the upper airways were sufficiently anesthetized, the bronchoscope was placed in through the nares and into the posterior pharynx. The epiglottis was noted to be free of lesion. There was some mucus appreciated above the vocal cords. This was suctioned free. Both vocal cords were moving appropriately and the bronchoscope was placed through the vocal cords and into the trachea. Trachea was topically anesthetized with Xylocaine. The jolly was blunted, left lung was examined in a brief fashion. There was no gross endobronchial lesion appreciated and mucus was suctioned free. Attention was then turned to the right side, and the right main bronchus was totally occluded by thick, tenacious, albeit nonpurulent mucus. Saline was used for instillation, and the airways of the right main bronchus, right upper lobe, right middle lobe and right lower lobe were suctioned of mucus and lavaged to a point of reasonable patency. There was irregularity but not friability in the mucosa of the right main bronchus and no gross endobronchial lesions were identified. Having suctioned mucus effectively, the bronchoscope was retracted out through the patient's nose. During the procedure, he received 3 mg of Versed, 2 mg of morphine, tolerated the procedure well, suffered no apparent complication and a postprocedure chest x-ray is pending. The patient was left in unchanged condition in the intensive care unit. Copy to: Dr. Nish Mack in Medical Education
[2016-11-02] MEDS: ATENOLOL 25 MG TAB PO SCH (17:53)
[2016-11-02] MEDS: zolPIDEM TARTRATE 10MG TAB PO PRN (20:43)
[2016-11-03] VITALS (8 sets, daily range): BP systolic 97–113; BP diastolic 55–66
[2016-11-03 04:50] LABS: MEAN CORPUSCULAR HEMOGLOBIN 28.6 pg (27.0-33.0); MEAN CORPUSCULAR HGB CONC 33.2 g/dl (32.0-36.5); MEAN CORPUSCULAR VOLUME 86.4 fl (80.0-96.0); RED CELL DISTRIBUTION WIDTH 13.9 % (11.5-14.5); WHITE BLOOD COUNT 10.2 K/mm3 (4.0-10.0)
[2016-11-03] MEDS: SLF 3 ML SYR IV SCH ×3 (05:11→21:08)
[2016-11-03] MEDS: dexameTHASONE 4 MG/ML 1ML VIAL (J1100) IV SCH ×2 (05:11→17:15)
[2016-11-03 05:12] LABS: ALBUMIN 2.1 GM/DL (3.2-5.2); ALBUMIN/GLOBULIN RATIO 0.6 (1.00-1.93); BILIRUBIN,TOTAL 0.3 MG/DL (0.2-1.0); CREATININE FOR GFR 1.35 MG/DL (0.70-1.30); GLOMERULAR FILTRATION RATE 55.6 (>42); TOTAL PROTEIN 5.6 GM/DL (6.4-8.2)
[2016-11-03] MEDS: HEPARIN SOD (PORCINE) 5000 UNITS/ML VIAL SC SCH ×3 (05:12→21:08)
[2016-11-03] MEDS: IPRATROPIUM 0.5MG/ALBUTEROL 2.5MG INH SOL UD 3ML (DUONEB)(J7620) NEB SCH ×4 (07:31→19:41)
[2016-11-03] MEDS: LACTOBACILLUS ACIDOPHILUS CAP (BACID) PO SCH ×2 (08:41→21:09)
[2016-11-03] MEDS: PANTOPRAZOLE 40MG TAB (PROTONIX) PO SCH (08:41)
[2016-11-03] MEDS: DOCUSATE SODIUM 100 MG CAP PO SCH ×2 (08:41→21:09)
[2016-11-03] MEDS: LevoFLOXacin IV 500 MG in APPROPRIATE DILUENT 1 EA IV SCH (08:41)
[2016-11-03] MEDS: NYSTATIN 500,000 U/5 ML SUSP UDC PO SCH ×4 (08:42→21:08)
[2016-11-03] MEDS: ATENOLOL 25 MG TAB PO SCH (08:42)
--- NOTE | 2016-11-03 09:02 | REP ---
REASON: Hypoxia. COMPARISON: Multiple, the latest 11/02/2016 at 11:08 a.m. Once again, there is total opacification of the right hemithorax status quo. There is no change in the appearance of the left lung field. The right heart border is completely silhouetted out by the right hemithoracic opacity. There is no change in the osseous structures. IMPRESSION: No change. Signed by Jeremiah Villanueva DO 11/03/2016 04:07 P
[2016-11-03] MEDS: ADVAIR DISKUS 500/50 INH PWD INH SCH ×2 (09:10→22:03)
[2016-11-03] MEDS: TIOTROPIUM INHALER/CAPSULE (SPIRIVA) INH SCH (09:10)
--- NOTE | 2016-11-03 16:01 | REP ---
CT study of the chest without IV contrast: History: Persistent atelectasis. Question effusion. Comparison study October 27, 2016. Findings: There is persistent complete opacification of the right hemithorax with a combination of moderate right pleural effusion and collapse of the right lung with consolidation. There is inspissated endobronchial material in the right mainstem bronchus and filling the central upper and lower lobe bronchi. There is persistent mediastinal lymphadenopathy on the right and the left including an AP window mediastinal lymph node measuring 2.7 cm in diameter. Subcarinal adenopathy is apparent. There is no left pleural effusion. There are multiple pulmonary nodules in the left lung, however, involving the upper and lower lobes. No bony destructive lesion is seen. Impression: Inspissated endobronchial secretions with complete atelectasis and consolidation in the right lung along with moderate right pleural effusion resulting in complete opacification of the right hemithorax. Scattered pulmonary nodules again noted in the left lung. Mediastinal lymphadenopathy. Signed by Everardo Acevedo MD 11/03/2016 04:20 P
[2016-11-03] MEDS: zolPIDEM TARTRATE 10MG TAB PO PRN (21:13)
[2016-11-04] VITALS (19 sets, daily range): BP systolic 83–116; BP diastolic 52–63
[2016-11-04] MEDS: dexameTHASONE 4 MG/ML 1ML VIAL (J1100) IV SCH (04:58)
[2016-11-04] MEDS: SLF 3 ML SYR IV SCH ×3 (04:59→20:22)
[2016-11-04] MEDS: HEPARIN SOD (PORCINE) 5000 UNITS/ML VIAL SC SCH ×3 (04:59→20:22)
[2016-11-04] MEDS: TIOTROPIUM INHALER/CAPSULE (SPIRIVA) INH SCH (08:00)
[2016-11-04] MEDS: IPRATROPIUM 0.5MG/ALBUTEROL 2.5MG INH SOL UD 3ML (DUONEB)(J7620) NEB SCH ×4 (08:00→20:46)
--- NOTE | 2016-11-04 08:47 | REP ---
AP PORTABLE CHEST: 11/04/2016. Comparison: Daily chest x-rays for the past several days. Complete opacification of the right hemithorax with slight volume loss and compensatory hyperinflation of the left lung, some underlying fibrotic changes left lung and a tortuous calcified aorta. Stable examination. Signed by Freddy Marcial MD 11/04/2016 03:26 P
[2016-11-04] MEDS: ATENOLOL 25 MG TAB PO SCH (09:00)
[2016-11-04] MEDS: ADVAIR DISKUS 500/50 INH PWD INH SCH ×2 (09:00→20:46)
[2016-11-04] MEDS: LACTOBACILLUS ACIDOPHILUS CAP (BACID) PO SCH ×2 (09:31→20:19)
[2016-11-04] MEDS: PANTOPRAZOLE 40MG TAB (PROTONIX) PO SCH (09:31)
[2016-11-04] MEDS: DOCUSATE SODIUM 100 MG CAP PO SCH ×2 (09:31→20:19)
[2016-11-04] MEDS: NYSTATIN 500,000 U/5 ML SUSP UDC PO SCH ×4 (09:40→20:22)
[2016-11-04] MEDS ORDERED: FLUMAZENIL 0.5 MG/5 ML VIAL As Ordered ONE (11:21)
[2016-11-04] MEDS ORDERED: MIDAZOLAM INJ 2 MG/2 ML VIAL (J2250) As Ordered ONE ×2 (11:21→11:22)
[2016-11-04] MEDS ORDERED: LIDOCAINE 1% MDV 20ML VIAL As Ordered ONE (11:23)
[2016-11-04] MEDS: PERCOCET 5MG/325MG TAB PO PRN (13:57)
[2016-11-04] MEDS ORDERED: BISACODYL 10 MG SUPP PR PRN (14:00)
[2016-11-04] MEDS ORDERED: PERCOCET 5MG/325MG TAB PO PRN ×2 (14:00)
[2016-11-04] MEDS ORDERED: NORCO, ANEXSIA 5/325MG TABLET (HYDROcodone/ACETAMINOPHEN) PO PRN (14:00)
[2016-11-04] MEDS ORDERED: LEVALBUTEROL 1.25 MG/0.5 ML CONCENTRATE NEB NEB SCH (14:00)
[2016-11-04] MEDS ORDERED: LEVALBUTEROL 1.25 MG/0.5 ML CONCENTRATE NEB NEB PRN (14:00)
[2016-11-04] MEDS ORDERED: MORPHINE 4 MG/ML 1ML SYRINGE As Ordered ONE (14:11)
[2016-11-04] MEDS ORDERED: MORPHINE 4 MG/ML 1ML SYRINGE IV ONE (14:15)
--- NOTE | 2016-11-04 14:26 | REP ---
AP PORTABLE CHEST: 11/04/2016 at 01:45 p.m. COMPARISON: Portable chest earlier today, CT chest and portable chest 11/03/2016. CLINICAL HISTORY: Status PleurX catheter insertion. FINDINGS: There is now a smaller caliber chest tube in the medial right apex. There is much less fluid present but there is a pneumothorax in the right upper lung zone. Moderate compensatory hyperinflation is noted in the left lung, unchanged. Underlying fibrosis and COPD. Left ventricular configuration of the heart noted. Calcified aortic arch noted. Bones demineralized with degenerative changes both shoulders and AC joint on the left. The right AC joint shows distal resection. IMPRESSION: 1. Small caliber chest tube to the right medial apex with drainage of much pleural fluid. Small to moderate right apex pneumothorax and there is drowned lung without re-expansion. There is volume loss in the right hemithorax and compensatory hyperinflation of the left lung is stable. Signed by Freddy Marcial MD 11/04/2016 03:32 P
--- NOTE | 2016-11-04 14:29 | RO ---
DATE OF PROCEDURE: 11/04/2016 PREPROCEDURE DIAGNOSIS: Malignant pleural effusion. POSTPROCEDURE DIAGNOSIS: Malignant pleural effusion. PROCEDURE: insertion right PleurX catheter SURGEON: Dr. Michael Davis EXECUTIVE VICE PRESIDENT AND CHIEF OPERATING OFFICER: ANESTHESIA: PROCEDURE: Under satisfactory moderate sedation eventually achieved with 3 mg of Versed, the patient was prepped and draped in the usual sterile fashion. Entry and exit wounds were marked and measured. The pleural effusion was found through the entrance wound site and a wire was passed. Incisions were made at the entrance and at the exit wound sites and a tunnel was created from the exit to the entrance wound. PleurX catheter was then pulled through the tunnel and properly positioned. Tract was dilated over the wire and then a peel-away introducer was placed and the PleurX catheter was placed through the peel-away introducer. It was properly readjusted. The entrance wound was closed with #4- 0 Monocryl subcuticular suture and the catheter was secured to the chest wall with one #3-0 silk suture. Two liters of serosanguineous fluid was removed from the chest. The patient tolerated the procedure well and a chest x-ray is pending. [facility]
[2016-11-04] MEDS ORDERED: MIDAZOLAM INJ 2 MG/2 ML VIAL (J2250) IV ONE (15:30)
[2016-11-04] MEDS ORDERED: LIDOCAINE 1% MDV 20ML VIAL SC ONE (15:30)
[2016-11-04 15:33] LABS: RBC PLEURAL FLUID 62 (<10mm3 cells/uL); TNC PLEURAL FLUID 185 cells/uL (0-20)
[2016-11-04 15:35] LABS: BF DIFF IF INDICATED? YES (NO)
[2016-11-04 15:51] LABS: LDH, BODY FLUID 921 U/L (NOT ESTABLISHED); TOTAL PROTEIN, BODY FLUID 1.9 G/DL (NOT ESTABLISHED)
[2016-11-04 16:20] LABS: CC BF DIFF EXAM CYTOCENTRIFUGE
[2016-11-04] MEDS: MOM 30ML SUSPENSION UDC PO SCH (16:24)
[2016-11-04] MEDS: zolPIDEM TARTRATE 10MG TAB PO PRN (20:19)
--- NOTE | 2016-11-04 20:37 | CR ---
DATE OF CONSULTATION: 11/04/2016 REQUESTING PHYSICIAN: Mario Sanchez. REASON FOR CONSULTATION: Recurrent malignant pleural effusion. HISTORY OF PRESENT ILLNESS: The patient is a 71-year-old white male who approximately 3 to 4 weeks ago started becoming short of breath. The shortness of breath progressed fairly quickly over a course of a week, so he could hardly move and breathe. He was found to have a large pleural effusion, which was then tapped. Antecedent to his shortness of breath, he had only a slight cough with some white sputum. There were no fever, chills, or sweats and he stated that he has maintained his weight. In the last few days he has had trouble swallowing. He does not complain of any chest pain per se. 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 The Signet cell certainly pointed to a primary below the diaphragm and on endoscopy, random samples of the stomach were taken along with random samples of the esophagus and all were negative. However, there was a small lesion in the mid portion of the duodenum, which was biopsied and was found to contain the same cells as did the pleural effusion. These are HER2 negative and did not take up any other stains. This is assumed to be upper GI cancer, either duodenal or gastric. It is not ampullary carcinoma. This is now the fourth go around on the effusion. He was admitted a few days ago with a complete white out of his right hemithorax. After draining it of only 800 mL, the remaining lung was completely collapsed and atelectatic. It was assumed that this represented postobstruction atelectasis secondary to tumor. Dr. Sanchez did check a bronchoscopy yesterday and found mucus plugging which was all removed with resultant open airways. The lung, however, did not re-expand and another CT yesterday was undertaken which showed a large pleural effusion surrounding the collapsed lung. The coronal sections most significantly demonstrated that the bronchi were again filled with fluid and/or mucus. The aspirates did return as positive for malignant cells. The patient was discussed today at cancer conference. The patient has also undergone four sessions of radiation therapy out of a total of six to try and clear the presumed blocked bronchi from tumor. It is now felt that relief of the pleural effusion may help re-expand the lung and relieve the compression of the right lung. PAST MEDICAL HISTORY: 1. Atrial fibrillation, new onset, since diagnosis of his tumor. Not on anticoagulation. 2. Hypertension. 3. Chronic obstructive pulmonary disease (COPD). 4. Hyperlipidemia. 5. Sleep apnea. 6. Nicotine dependence. PAST SURGICAL HISTORY: 1. Left total knee replacement. 2. Carpal tunnel repair bilaterally. 3. Ulnar nerve transposition. ALLERGIES: APIXABAN. DABIGATRAN. RIVAROXABAN. HABITS: Smokes at least one pack per day for the past 50 years. Drinks a few beers a week. No illicit drugs. TRAVEL HISTORY: He has been to [place] in the remote past. No travel out west. 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 EXPOSURES: No dogs, cats or birds at home. No prior exposure to tuberculosis. MEDICATIONS AT HOME: - Ventolin every 4 hours, 1 puff as needed (p.r.n.) shortness of breath - amlodipine 5 mg every p.m. - atenolol 25 mg every p.m. - Capecitabine 5 tablets by mouth twice a day - cisplatin 100 mg IV every three weeks, last dose one week ago. - Lasix 40 mg every day - Guaifenesin 1200 mg every p.m. - Nystatin 5 mL swish and swallow four times a day - Prochlorperazine 10 mg as needed nausea and vomiting - Ranitidine 150 every p.m. - Advair Diskus 250/50, one inhalation twice a day - ipratropium one puff every day FAMILY HISTORY: Noncontributory to the present disease. REVIEW OF SYSTEMS: REVIEW OF SYSTEMS: Constitutional: See HPI, without fever, chills, sweats or night sweats, or consistent weight loss. Eyes: Without diplopia, without transient monocular blindness, without prior jaundice. Does wear glasses. Nose: Without epistaxis. Mouth: Has dentures. Pulmonary: See HPI. Cardiac: Without prior myocardial infarctions. Does have atrial fibrillation. In the past few days he cannot lay flat and in fact needs to be in a recliner. No paroxysmal nocturnal dyspnea when in his recliner. Has noted leg swelling in the past two weeks without intermittent claudication. Gastrointestinal (GI): Without nausea, vomiting or diarrhea, constipation, melena, hematochezia, hematemesis or abdominal pain. Genitourinary (): Did have one bout of hematuria. Bright red color a few weeks ago. It only happened once. No hematuria since. No dysuria. No history of renal stones. He did not have flank pain prior or during the episode of hematuria. Neurologic: Without paralyses, does have recurrent foot paresthesias, which have become worse in the last week which he attributes to his swelling. Without seizures. Endocrine: Without diabetes. Without thyroid disease. Lymphatics: Without lumps, bumps in the neck, axilla or groin. Hematologic: Without prolonged bleeding times. Psychiatric: Without pathological anxieties, depressions or psychoses. PHYSICAL EXAMINATION: PHYSICAL EXAMINATION: General: Well-developed, chronically ill looking 71-year-old white male who is short of breath only with moving around. Vital signs: Temperature 97.9, heart rate 74 in atrial fibrillation. Respiratory rate 18, without the use of accessory muscles. He is 94% saturated on 4 liters nasal cannula and his blood pressure is 92/61. Eyes: Pupils equal, round and reactive to light. Extraocular muscles intact. Sclera anicteric. Nose: Without deformity. Mouth: Shows his mucous membranes to be pink and moist. Lips and commissures are without lesions. There is no thrush. Head: Normocephalic. Neck is supple. There is no jugular venous distention, no subcutaneous emphysema. Trachea is midline. There is no lymphadenopathy or thyromegaly. He has 2+ carotid upstrokes without bruits. Lungs: Show markedly decreased breath sounds on the right side with a dull percussion note all the way up. He has E:A egophony that can be heard on the right side. The left side shows coarse rhonchi, some of which clear with coughing. Percussion note is full to the diaphragm on the left side. Cardiac examination: Without murmurs, clicks, gallops or rubs. I cannot feel his point of maximal impulse (PMI), S1 and S2 are normal. Abdomen: Soft and nontender. Bowel sounds are positive. There is no hepatomegaly. There is no costovertebral angle (CVA) tenderness. There are no epigastric or pulsatile mass and there are no aortic or renal bruits. Extremities: Show 2+ pretibial edema, but no calf tenderness. There is no differential swelling of the upper extremities. Skin: Warm, dry, and perfused without cyanosis or mottling including that of the nail beds and the knees. Neuro: Shows II through XII intact. Gross motor and gross sensation intact. Gait is not tested. Psychiatric: Shows him to be awake, alert and oriented times three, with appropriate mood, affect, and conversational. INVESTIGATIONS: His white count this morning is 10.2 with a hemoglobin and hematocrit of 9.8 and 29.7 respectively. Indices are normal and his platelet count is 240. Differential two days ago showed 89% neutrophils, 4% lymphocytes, 5% monocytes. There were no immature forms, no toxic granulations. His electrolytes today show a total CO2 of 40 with a normal sodium and potassium. BUN and creatinine are 51 and 1.35, which continues to increase since his admission. Glucose is 101 with a calcium of 9.0 and a corresponding albumin of 2.1. AST and ALT are normal. His chest x-ray upon admission showed complete opacification of the right lung. Chest CT also done on 10/27/2016 showed an underlying atelectatic right lung with a minimal pleural effusion. He has some air from prior pleural taps. He had multiple lung lesions on the left side that could clearly be seen. His chest CT done yesterday shows a much larger pleural effusion. The lung is completely still atelectatic and it looks as though it is now again completely blocked with what is most likely mucus consistent with what Dr. Sanchez found yesterday at bronchoscopy. He again has multiple lung lesions on the left side. There is a shift paradoxically to the right where the pleural effusion volume has not made up for the loss of volume of the entire right lung. There is no pericardial effusion. The left adrenal has a normal configuration. Right adrenal looks a little generous. I see no mass in the pancreas or mass within the duodenum or stomach. There is mediastinal lymphadenopathy with an AP window node measuring 2.5 cm. There are numerous paratracheal nodes, one of which measures approximately 2 cm. The rest are about 1 cm. IMPRESSION: 1. 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 3. Shortness of breath. 4. Atrial fibrillation. 5. Hypertension. 6. COPD. 7. Completely atelectatic post obstructive atelectasis. PLAN AND DISCUSSION: It is our hope that by draining the pleural effusion, we will allow enough space for the lung to re-expand with aggressive lung expansion therapy and chest physical therapy (PT). I will therefore place a PleurX catheter as this has been drained multiple times. This looks to be stage IV disease from the outset and any treatment we give will be palliative and supportive in nature rather than curative. He is still going for radiation therapy.
[2016-11-05] VITALS (9 sets, daily range): BP systolic 60–97; BP diastolic 32–69
[2016-11-05] MEDS: HEPARIN SOD (PORCINE) 5000 UNITS/ML VIAL SC SCH ×3 (05:36→22:09)
[2016-11-05] MEDS: SLF 3 ML SYR IV SCH ×3 (05:37→22:10)
[2016-11-05 05:46] LABS: ABG BASE EXCESS 5.9 (-2.0-2.0); ABG HCO3 30.1 MEQ/L (22.0-26.0); ABG PARTIAL PRESSURE CO2 41.9 mmHg (35.0-45.0); ABG PARTIAL PRESSURE O2 69.9 mmHg (75.0-100.0); ABG STANDARD HCO3 29.8 MEQ/L (22.0-26.0); ABG TOTAL CO2 31.4 MEQ/L (23.0-31.0); ABG pH (ARTERIAL) 7.474 UNITS (7.350-7.450)
[2016-11-05 06:01] LABS: BASO % 0.1 % (0.0-1.0); EOS # 0.1 K/mm3 (0.0-0.50); EOS % 0.9 % (0.0-3.0); LARGE UNSTAINED CELL # 0.1 K/mm3 (0.0-0.4); LARGE UNSTAINED CELL % 0.8 % (0.0-4.0); LYMPH # 0.5 K/mm3 (1.5-4.5); LYMPH % 4.6 % (24.0-44.0); MEAN CORPUSCULAR HEMOGLOBIN 28.8 pg (27.0-33.0); MEAN CORPUSCULAR HGB CONC 33.8 g/dl (32.0-36.5); MONO # 0.4 K/mm3 (0.0-0.8); MONO % 4.3 % (0.0-5.0); NEUTROPHILS % 89.2 % (36.0-66.0); PLATELET COUNT, AUTOMATED 201 k/mm3 (150-450); RED CELL DISTRIBUTION WIDTH 14.2 % (11.5-14.5); WHITE BLOOD COUNT 8.9 K/mm3 (4.0-10.0)
[2016-11-05 06:09] LABS: CALCIUM LEVEL 8.9 MG/DL (8.8-10.2); CREATININE FOR GFR 1.93 MG/DL (0.70-1.30); GLOMERULAR FILTRATION RATE 36.8 (>42); POTASSIUM SERUM 3.9 MEQ/L (3.5-5.1)
[2016-11-05] MEDS: TIOTROPIUM INHALER/CAPSULE (SPIRIVA) INH SCH (08:34)
[2016-11-05] MEDS: IPRATROPIUM 0.5MG/ALBUTEROL 2.5MG INH SOL UD 3ML (DUONEB)(J7620) NEB SCH ×3 (08:34→20:00)
[2016-11-05] MEDS: ADVAIR DISKUS 500/50 INH PWD INH SCH ×2 (08:34→20:40)
[2016-11-05] MEDS: ATENOLOL 25 MG TAB PO SCH (09:00)
[2016-11-05] MEDS: MOM 30ML SUSPENSION UDC PO SCH (09:28)
[2016-11-05] MEDS: NYSTATIN 500,000 U/5 ML SUSP UDC PO SCH ×4 (09:28→22:08)
[2016-11-05] MEDS: LACTOBACILLUS ACIDOPHILUS CAP (BACID) PO SCH ×2 (09:28→22:09)
[2016-11-05] MEDS: DOCUSATE SODIUM 100 MG CAP PO SCH ×2 (09:31→22:09)
[2016-11-05] MEDS: PANTOPRAZOLE 40MG TAB (PROTONIX) PO SCH (09:33)
--- NOTE | 2016-11-05 11:19 | REP ---
CHEST PA AND LATERAL: 11/05/2016. Comparison: portable chest 11/04/2016, CT chest 11/03/2016. Clinical history: Pleural effusion, right chest tube. Findings: PA and lateral chest views performed. The original image shows left lung over penetrated. A manipulated image at the modality and at the workstation was not satisfactory and a repeat PA chest with manual technique then performed. There is a small caliber right apex chest tube with an apical hydropneumothorax. No significant tension component. The air-fluid level is just above the level of the aortic arch. The air gap may be slightly larger than yesterday's chest x-ray. The left lung is well inflated and without any definite acute infiltrate. Density overlying the anterior left sixth rib and a posterior rib seen, as on portable chest yesterday. There were multiple nodules in the left lung on CT chest 2 days ago. No other new finding or interval change. Signed by Freddy Marcial MD 11/05/2016 02:58 P
[2016-11-05] MEDS ORDERED: NS 500 ML IV ONE ×2 (12:15→17:15)
[2016-11-05] MEDS: MORPHINE 2 MG/ML 1ML SYRINGE IV PRN (17:25)
--- NOTE | 2016-11-05 19:54 | IPN ---
DATE: 11/05/2016 Mr. Boateng is now 24 hours status post PleurX catheter insertion. He was breathing so much better yesterday after the fluid was drained. He did drain 2000 mL of serosanguineous fluid. Today he states he is breathing okay, however, his chest x-ray shows a reaccumulation of fluid with an air fluid level. He has major rhonchi throughout the left lung with transmitted breath sounds on the right side. His vital signs show a T-max of 98.0 with a heart rate that ranges between 64 and 88 with a respiratory rate of 18 to 22 without the use of accessory muscles. His blood pressure is ranging between 78/46 to 97.69. He is being given at the present time 500 mL bolus of normal saline. He is on 4 liters of nasal cannula and with that he is 91 to 96% saturated. His intake and output the past 24 hours has been recorded as 1080 in and 2575 out, which includes 2000 mL from the PleurX catheter. That is a negativity of 1500 mL. His weight today is 85.7 kg compared to 81.3 kg yesterday even with the fluid being removed. PHYSICAL EXAMINATION: His left lung shows rhonchi throughout both inspiration and expiration. These are coarse and do not completely clear with coughing. Right side shows bronchophony with egophony. Percussion note is dull two-thirds of the way up the chest. Cardiac exam is without murmurs, clicks, gallops or rubs. I cannot feel his point of maximal impulse (PMI). S1 and S2 are normal. Abdomen is soft and nontender. Bowel sounds are positive. There is no hepatomegaly. No costovertebral angle (CVA) tenderness. Extremities show 2+ to 3+ pretibial edema. No calf tenderness. No differential swelling of the upper extremities. Skin is warm, dry and perfused without cyanosis or mottling including that of the nail beds and the knees. Neck is supple. There is no jugular venous distention. Mouth shows his mucous membranes to be pink and moist. Lips and commissures without lesions. He does have a coating of thrush. Eyes show his pupils to be equal, reactive. Extraocular muscles intact. Sclera anicteric. Neuro shows II through XII intact. Gross motor and gross sensation intact. Gait is not tested. Psychiatric shows him to be awake, alert and oriented times three with appropriate mood, affect and conversational. His white count today is 8.9, down from 10.2 yesterday. Hemoglobin and hematocrit ate 9.9 and 29.3, unchanged from yesterday with normal indices. Platelet count is 201 and stable and differential shows 89% neutrophils, 4% lymphocytes, 4% monocytes. There are no immature forms. No toxic granulations. His electrolytes show a total CO2 of 39 with a BUN and creatinine of 70 and 1.93, which continues to increase from 1.35 and from 51 and 1.35 yesterday. Calcium is 8.9. His pleural fluid shows a pH of 7.5, with an LDH of 921, with a corresponding serum LDH of 370. Total nucleate cells is 185, 64% of which are lymphocytes, 30 are neutrophils and 6 are monocytes. Glucose is 115. This looks to be a leukocytic exudative effusion most likely malignant. Cytology shows the same abundant single cells. His chest x-ray shows an air fluid level. I cannot see any lung beneath the fluid. The air fluid level is all almost up to the cupula of the chest. The left lung looks fairly clear though there may be a small infiltrative pattern in the mid section of the left lung. Costophrenic angle is sharp on the left side. He has a bronchial cut off sign on the right side before the takeoff of the right upper lobe. IMPRESSION: 1. 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 3. Shortness of breath. 4. Atrial fibrillation. 5. Hypertension. 6. Chronic obstructive pulmonary disease (COPD). 7. Completely atelectatic post obstructive atelectasis. PLAN AND DISCUSSION: I will ask the nursing staff to drain him every day. Will give him analgesia prior to drainage. He is already on aggressive lung expansion therapy. His kidneys are starting to fail. This may be secondary to him pouring out fluid into the hemithorax. He certainly subjectively feels better with the fluid gone, however, it does not look as if there any expansion of his lung. We will try to drain him again, but I suspect that if his kidneys continue to fail, we are going to stop draining him and let him equilibrate and accept the fact that the lung is going to stay atelectatic.
[2016-11-05] MEDS: NS 1,000 ML IV SCH (22:09)
--- NOTE | 2016-11-05 22:57 | IPN ---
DATE: 11/05/2016 INTERIM PROGRESS NOTE Mr. Boateng's blood pressure has been rather soft all day. Most recently, it was recorded as 66/42 to 84/49. He is fully cognizant and mentating and sitting up in a chair. He was drained this afternoon of approximately 850 mL of fluid from the PleurX catheter. He is now negative 1800 mL in fluid balance since yesterday. It is becoming very clear that Mr. Boateng has quite extensive tumor burden and the fact that he is putting out so much from the pleural cavity indicates that the tumor burden is quite large. In addition, mucus that was aspirated during bronchoscopy is also showing malignant cells. We now find ourselves between a rock and a hard place while trying to drain him in order to expand his lung and keep him comfortably breathing all the while intravascularly depleting him. His intravascular depletion is manifested by a rising BUN and creatinine. His latest BUN and creatinine today being 70 and 1.93, which has been creeping up over the last 3 days. His chest x-ray done tonight after drainage, surprisingly, but gratifyingly, shows that the right upper lobe has now reexpanded. The left upper lobe is still atelectatic. I have had a very long talk with Mrs. Boateng regarding her 's status. It is clear from our discussion at tumor conference yesterday that he does not have the functional status to withstand chemotherapy, and, in fact, that was withdrawn a number of days ago because of his functional status. He is undergoing his last few radiation treatments in order to open up the bronchi. It was clear from Dr. Sanchez's observations at the time of bronchoscopy that his bronchi were, indeed, clear and were not obstructive with tumor but rather with thick, tenacious mucus. That mucus is contaminated and filled with tumor cells, but there is no endobronchial lesion that is obstructing the main stem bronchi. Doctor did describe cobblestoning along the bronchial tree, most likely indicative of underlying tumor spread throughout the entire bronchial tree consistent with carcinomatosis. By draining him via the PleurX catheter, we will nutritionally deplete him very quickly by depleting his albumin. We are, therefore, going to replace albumin along with fluid in order to intravascularly replete him. Our problem is the more fluid we give, probably the more that he will transudate across the pleural space. Mrs. Boateng is going to have a family discussion with her son and Mr. Boateng with regard to the best supportive care, which no doubt means hospice. This discussion, according to Mrs. Boateng, has not been held before. I have spoken with Dr. Koch, who is now the attending of record, regarding this turn of events after she initially called me about his blood pressure to tap my familiarity with his course. She and Mrs. Boateng are in agreement with the albumin transfusions and, in fact, the albumin transfusion was initiated by Dr. Koch and I am continuing it every 6 hours for the next four doses.
--- NOTE | 2016-11-05 23:17 | REP ---
PORTABLE CHEST: AP portable view of the chest is performed. There is a large right pleural effusion. Visualized right upper lobe demonstrates streaky infiltrate. There is a tiny right apical pneumothorax. Interstitial opacities in the left lung are unchanged. IMPRESSION: Right chest tube. Large right effusion. Tiny right apical pneumothorax. Signed by Anatoly Martínez MD 11/06/2016 03:22 P
[2016-11-06] MEDS: NS 1,000 ML IV SCH (05:54)
[2016-11-06 06:07] LABS: CALCIUM LEVEL 8.3 MG/DL (8.8-10.2); CREATININE FOR GFR 1.89 MG/DL (0.70-1.30); GLOMERULAR FILTRATION RATE 37.7 (>42); POTASSIUM SERUM 3.9 MEQ/L (3.5-5.1)
[2016-11-06 06:08] LABS: BASO % 0.1 % (0.0-1.0); EOS # 0.1 K/mm3 (0.0-0.50); EOS % 1.5 % (0.0-3.0); LARGE UNSTAINED CELL # 0.1 K/mm3 (0.0-0.4); LARGE UNSTAINED CELL % 0.9 % (0.0-4.0); LYMPH # 0.4 K/mm3 (1.5-4.5); LYMPH % 4.1 % (24.0-44.0); MEAN CORPUSCULAR HEMOGLOBIN 28.1 pg (27.0-33.0); MEAN CORPUSCULAR HGB CONC 32.7 g/dl (32.0-36.5); MONO # 0.3 K/mm3 (0.0-0.8); MONO % 3.8 % (0.0-5.0); NEUTROPHILS % 89.5 % (36.0-66.0); PLATELET COUNT, AUTOMATED 161 k/mm3 (150-450); RED CELL DISTRIBUTION WIDTH 14.5 % (11.5-14.5); WHITE BLOOD COUNT 7.9 K/mm3 (4.0-10.0)
[2016-11-06] MEDS: HEPARIN SOD (PORCINE) 5000 UNITS/ML VIAL SC SCH (06:15)
[2016-11-06] MEDS: SLF 3 ML SYR IV SCH (06:16)
[2016-11-06 07:20] VITALS: BP 76/40
[2016-11-06] MEDS: IPRATROPIUM 0.5MG/ALBUTEROL 2.5MG INH SOL UD 3ML (DUONEB)(J7620) NEB SCH (08:00)
--- NOTE | 2016-11-06 08:03 | RO ---
CONSCIOUS SEDATION NOTE: DATE OF PROCEDURE: 11/02/2016 PREOPERATIVE DIAGNOSIS: POSTOPERATIVE DIAGNOSIS: PROCEDURE: SURGEON: Mario Sanchez DO GR[employer]DER OPERATOR: ANESTHESIA: DESCRIPTION OF PROCEDURE: Conscious sedation was administered for the performance of bedside fiberoptic bronchoscopy. The patient's vital signs were monitored prior to, during, and following the procedure, including heart rate, blood pressure, pulse oximetry. Supplemental oxygen was administered to maintain a saturation of 90%. Procedure start time was 10 a.m. The procedure continued for 40 minutes. During the procedure, the patient received 3 mg of intravenous midazolam and 2 mg of intravenous morphine. Vital signs remained stable throughout the procedure. At the completion of the procedure, the patient's condition was unchanged.
[2016-11-06 08:42] VITALS: BP 76/40
[2016-11-06] MEDS: PANTOPRAZOLE 40MG TAB (PROTONIX) PO SCH (08:42)
[2016-11-06] MEDS: DOCUSATE SODIUM 100 MG CAP PO SCH (08:42)
[2016-11-06] MEDS: NYSTATIN 500,000 U/5 ML SUSP UDC PO SCH (08:42)
[2016-11-06] MEDS: ATENOLOL 25 MG TAB PO SCH (08:42)
[2016-11-06] MEDS: LACTOBACILLUS ACIDOPHILUS CAP (BACID) PO SCH (08:42)
[2016-11-06] MEDS: MOM 30ML SUSPENSION UDC PO SCH (08:43)
[2016-11-06] MEDS: ADVAIR DISKUS 500/50 INH PWD INH SCH (08:57)
[2016-11-06] MEDS: TIOTROPIUM INHALER/CAPSULE (SPIRIVA) INH SCH (09:04)
--- NOTE | 2016-11-07 08:53 | DSES ---
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 3. Shortness of breath. 4. Atrial fibrillation. 5. Chronic obstructive pulmonary disease (COPD). 6. Nicotine dependence. PROCEDURES: 1. Bronchoscopy. 2. PleurX catheter. CONSULTANTS: Thoracic surgery. HOSPITAL COURSE: Mr. Boateng was admitted after presenting with significant increased shortness of breath and generally feeling unwell. Upon admission, he had opacification of the right hemithorax. It was also thought that he may have had a postobstructive pneumonic process. He was treated with antibiotics. Bronchoscopy was undertaken which showed some areas of mucus plugging but after evacuation of the airways, the lung would still not expand and a repeat evaluation showed that there was significant pleural fluid. As he had previously had three thoracenteses, it was felt best to place a PleurX catheter. Incidentally, the pleural secretions that were evacuated showed the presence of tumor cell. The PleurX catheter initially drained 2 liters and then 800 mL the next night. The fluid drainage did help with the shortness of breath but it was clear that the chest cavity was rapidly filling with fluid and that the lung was not going to expand. Because of the large volume chest losses, he also became hypotensive and required some fluid resuscitation. Discussions were held with Mr. Boateng's last evening regarding the very poor prognosis and extensive tumor burden. Mrs. Boateng, her and her children had discussions last evening and this morning. They decided to go hospice care which appears appropriate. He was discharged home with hospice today. DISCHARGE MEDICATIONS: Are the same as admission with the exception of holding his blood pressure medications. Additional medications include: - Roxanol 20 mg/mL 0.25 mL per 1 mL by mouth every two hours as needed - lorazepam 0.5 g by mouth sublingual every four hours as needed - atropine 1% ophthalmic two drops sublingual every two hours as needed
== END 2016-11-06 11:24 | disposition hospice, home (50) | DRG 167 ==
LOC: M ED 17:58 → M ED INP 17:59 → M ICU 19:52 → M PCU 11-03 15:15
PROVIDERS: ADMIT Internal Medicine Pulmonary Disease; ATTEND Internal Medicine Pulmonary Disease
PROC: 0W993ZZ Drainage of Right Pleural Cavity, Percutaneous Approach (ICD-10-PCS; 2016-10-27)
PROC: 0B9 Respiratory System, Drainage (ICD-10-PCS; principal; 2016-11-02)
PROC: 0C9 Mouth and Throat, Drainage (ICD-10-PCS; 2016-11-02)
PROC: 0WH93YZ Insertion of Other Device into Right Pleural Cavity, Percutaneous Approach (ICD-10-PCS; 2016-11-04)
PROC: 30233J1 Transfusion of Nonautologous Serum Albumin into Peripheral Vein, Percutaneous Approach (ICD-10-PCS; 2016-11-05)
DX: J15.1 Pneumonia due to Pseudomonas (principal); J91.0 Malignant pleural effusion; C78.01 Secondary malignant neoplasm of right lung; J96.11 Chronic respiratory failure with hypoxia; C17.0 Malignant neoplasm of duodenum; M62.50 Muscle wasting and atrophy, not elsewhere classified, unspecified site; Z66 Do not resuscitate; F17.210 Nicotine dependence, cigarettes, uncomplicated; J44.9 Chronic obstructive pulmonary disease, unspecified; I48.91 Unspecified atrial fibrillation; I10 Essential (primary) hypertension; E78.5 Hyperlipidemia, unspecified; Z96.652 Presence of left artificial knee joint; Z79.899 Other long term (current) drug therapy; Z88.8 Allergy status to other drugs, medicaments and biological substances; Z92.21 Personal history of antineoplastic chemotherapy